=== PATIENT | female | born 1995 | race African-American/Black ===

== ENCOUNTER 2016-11-03 09:10 | Inpatient (IN) | payer MEDICAID ==
[2016-11-03] MEDS ORDERED: ONDANSETRON 4 MG TAB.RAPDIS PO ONE (11:40)
[2016-11-03] MEDS ORDERED: METOCLOPRAMIDE HCL 10 MG TABLET PO ONE (11:41)
[2016-11-03] MEDS ORDERED: DIPHENHYDRAMINE HCL 25 MG CAPSULE PO ONE (11:41)
[2016-11-03] MEDS ORDERED: NORMAL SALINE 1000 ML 1,000 ML IV PRN (11:42)
--- NOTE | 2016-11-03 11:47 | ER Document Report ---
ED GI/ - General Chief Complaint: Abdominal Pain Stated Complaint: ABDOMINAL PAIN Notes: Patient is approximately 8 weeks , G1, P0, A0, LMP August, who presents with nausea and vomiting on a daily basis for the past 2 weeks. She says she's vomited as many as 30 or 40 times a day some days. No diarrhea. No significant abdominal pains. He is making urine and her last urine output was this morning. Denies any UTI symptoms. Has not had any fever. Has not had any vaginal bleeding or spotting. PMH: Cholecystectomy. TRAVEL OUTSIDE OF THE [place] IN LAST 30 DAYS: No - Related Data Allergies/Adverse Reactions: No Known Allergies Allergy (Unverified 11/03/16 09:22) Past Medical History - Social History Smoking Status: Never Smoker Cigarette use (# per day): No Chew tobacco use (# tins/day): No Frequency of alcohol use: None Drug Abuse: None Family History: Reviewed & Not Pertinent Patient has suicidal ideation: No Patient has homicidal ideation: No Endocrine Medical History: Denies: Hx Diabetes Mellitus Type 1, Hx Diabetes Mellitus Type 2 Past Surgical History: Reports: Hx Cholecystectomy - Immunizations Hx Diphtheria, Pertussis, Tetanus Vaccination: - Unknown Review of Systems - Review of Systems Notes: REVIEW OF SYSTEMS: CONSTITUTIONAL : Denies fever. EENT: Denies eye, ear, nose or mouth or throat pain or other symptoms. CARDIOVASCULAR: Denies chest pain. RESPIRATORY: Denies cough, chest congestion, or shortness of breath. GASTROINTESTINAL: See history of present illness. GENITOURINARY: Denies difficulty or painful urinating, urinary frequency, blood in urine. MUSCULOSKELETAL: Denies back or neck pain. Denies joint pain or swelling. SKIN: Denies rash or skin lesions. NEUROLOGICAL: Denies LOC or altered mental status. Denies headache. Denies sensory loss or motor deficits. ALL OTHER SYSTEMS REVIEWED AND NEGATIVE. Physical Exam - Vital signs Vitals: Temp Pulse Resp BP Pulse Ox 97.4 F 112 H 20 121/70 94 11/03/16 09:13 11/03/16 09:13 11/03/16 09:13 11/03/16 09:13 11/03/16 09:13 Interpretation: Tachycardic - Minimal at 112. - Notes Notes: PHYSICAL EXAMINATION: GENERAL: Well-appearing, in no acute distress. Pulse is 112 but other vital signs are all normal. HEAD: Atraumatic, normocephalic. ENT: oropharynx clear without exudates. Moist mucous membranes. NECK: Normal range of motion, supple. LUNGS: Breath sounds clear and equal bilaterally. HEART: Regular rate and rhythm without murmurs. ABDOMEN: Soft, only very mild scattered random tenderness. No guarding or rebound. No masses felt. BACK: No tenderness throughout entire back. EXTREMITIES: Normal range of motion without pain. NEUROLOGICAL: Normal speech, normal gait. Normal sensory, motor, and reflex exams. Awake, alert, and oriented x3. SKIN: Warm, dry, no rashes. Course - Re-evaluation Re-evalutation: 11/03/16 17:22 Patient was a difficult stick and given IV) peripherally. Eventually, an IV line was obtained in the anterior right axilla. Patient was given 2 L of saline through that IV. She continued to be nauseated and actually vomited, even after some anti-emetics orally to begin with and Zofran IV. Because of the patient's persistent nausea and vomiting as well as her leukocytosis which is of some concern, patient was admitted for further hydration and evaluation by Dr. George. - Vital Signs Vital signs: Temp Pulse Resp BP Pulse Ox 97.4 F 112 H 20 121/70 94 11/03/16 09:13 11/03/16 09:13 11/03/16 09:13 11/03/16 09:13 11/03/16 09:13 - Laboratory Result Diagrams: 11/03/16 11:58 11/03/16 11:58 Laboratory results interpreted by me: 11/03/16 11/03/16 11/03/16 11:58 11:58 13:15 WBC 21.5 H Seg Neuts % (Manual) 79 H Band Neutrophils % 1 L Abs Neuts (Manual) 17.2 H Sodium 131.2 L Chloride 93 L Lipase 21.7 L Beta HCG, Quant 74847.00 H Urine Ketones 20 H - Diagnostic Test Radiology reviewed: Image reviewed, Reports reviewed - Ultrasound shows an 8 week, 1 day living fetus with active heartbeat. Discharge - Discharge Clinical Impression: Vomiting during Intractable vomiting Qualifiers: Vomiting type: unspecified Nausea presence: with nausea Qualified Code(s): R11.2 - Nausea with vomiting, unspecified Condition: Stable Disposition: ADMITTED OBSERVATION Admitting Provider: Hospitalist Unit Admitted: Post
[2016-11-03 12:09] LABS: HEMATOCRIT 42.6 % (36.0-47.0); HEMOGLOBIN 14.5 g/dL (12.0-15.5); HGB HCT DIFFERENCE 0.9; MEAN CORPUSCULAR HEMOGLOBIN 29.7 pg (27.0-33.4); MEAN CORPUSCULAR VOLUME 87 fl (80-97); RED BLOOD COUNT 4.87 10^6/uL (3.72-5.28); RED CELL DISTRIBUTION WIDTH 13.7 % (11.5-14.0); WHITE BLOOD COUNT 21.5 10^3/uL (4.0-10.5)
[2016-11-03 12:27] LABS: ALANINE AMINOTRANSFERASE 27 U/L (9-52); ALBUMIN 4.3 g/dL (3.5-5.0); ALKALINE PHOSPHATASE 69 U/L (38-126); ANION GAP 11 (5-19); ASPARTATE AMINO TRANSFERASE 19 U/L (14-36); BLOOD UREA NITROGEN 7 mg/dL (7-20); CALCIUM 10.2 mg/dL (8.4-10.2); CARBON DIOXIDE 27 mmol/L (22-30); CHLORIDE 93 mmol/L (98-107); CREATININE RESULT 0.61 mg/dL (0.52-1.25); GLUCOSE 79 mg/dL (75-110); LIPASE 21.7 U/L (23-300); SODIUM 131.2 mmol/L (137-145); TOTAL PROTEIN 7.4 g/dL (6.3-8.2)
[2016-11-03 12:35] LABS: BAND NEUTROPHILS % (MANUAL) 1 % (3-5); BASOPHILS % (MANUAL) 0 % (0-2); EOSINOPHILS % (MANUAL) 0 % (0-6); LYMPHOCYTES % (MANUAL) 16 % (13-45); POLYCHROMASIA SLIGHT; TOTAL CELLS COUNTED 100; TOXIC GRANULATION SLIGHT; TOXIC VACUOLATION PRESENT
[2016-11-03 13:34] LABS: APPEARANCE,URINE SLIGHTLY-CLOUDY; BILIRUBIN,URINE NEGATIVE (NEGATIVE); GLUCOSE, URINE NEGATIVE (NEGATIVE); KETONES,URINE 20 mg/dL (NEGATIVE); LEUKOCYTE ESTERASE,URINE NEGATIVE (NEGATIVE); NITRITE,URINE NEGATIVE (NEGATIVE); PROTEIN,URINE NEGATIVE (NEGATIVE); URINE SPECIFIC GRAVITY 1.016; UROBILINOGEN,URINE NEGATIVE mg/dL (<2.0)
[2016-11-03] MEDS ORDERED: ONDANSETRON HCL INJ/PF 4 MG/2 ML SDV IV ONE (16:11)
[2016-11-03] MEDS ORDERED: ONDANSETRON HCL INJ/PF 4 MG/2 ML SDV ONE (16:12)
[2016-11-03] MEDS ORDERED: NORMAL SALINE 1000 ML 1,000 ML with POTASSIUM CHLORIDE 20 MEQ, MAGNESIUM SULFATE 8 MEQ,... IV PRN ×5 (17:19)
[2016-11-03] MEDS ORDERED: PROMETHAZINE HCL 25 MG SUPP.RECT PR PRN (20:58)
--- NOTE | 2016-11-03 21:51 | PDOC H&P ---
History of Present Illness Admission Date/PCP: 11/03/16 17:59 Patient complains of: vomiting greater than 5 times per day History of Present Illness: KELLI DANIEL is a 21 year old female with unknown LMP who reports several day to 1week history of n/v. She reports that she has emesis both day and night. Greater than 5 times per day (but less than 10 times) and greater than 5 times at night (but less than 10) and is having difficulty sleeping. She reports that she has been unable to tolerate po food or fluids. She presented to the ER and was given IVF but had persistent emesis despite meds in the ER. Past Medical History Gynecological Infection: No Obstetrical History: none Medical History: None Cardiac Medical History: Reports: None Pulmonary Medical History: Reports: None EENT Medical History: Reports: None Neurological Medical History: Reports: None Endocrine Medical History: Reports: None Denies: Diabetes Mellitus Type 1, Diabetes Mellitus Type 2 Renal/ Medical History: Reports: None Malignancy Medical History: Reports: None GI Medical History: Reports: None Musculoskeltal Medical History: Reports: None Skin Medical History: Reports: None Psychiatric Medical History: Reports: None Traumatic Medical History: Reports: None Infectious Medical History: Reports: None Past Surgical History Past Surgical History: Reports: Cholecystectomy Social History Smoking Status: Never Smoker Frequency of Alcohol Use: None Hx Recreational Drug Use: No Drugs: None Hx Prescription Drug Abuse: No - Advance Directive Resuscitation Status: Full Code Family History Family History: Reviewed & Not Pertinent Parental Family History Reviewed: No Children Family History Reviewed: NA Sibling(s) Family History Reviewed.: NA Medication/Allergy Home Medications: No Home Medications 11/03/16 Allergies/Adverse Reactions: No Known Allergies Allergy (Unverified 11/03/16 09:22) Review of Systems Constitutional: PRESENT: fatigue, weakness Cardiovascular: ABSENT: chest pain, dyspnea on exertion, edema, orthropnea, palpitations Respiratory: ABSENT: cough, hemoptysis Gastrointestinal: PRESENT: abdominal pain, nausea, vomiting. ABSENT: bloating Genitourinary: ABSENT: dysuria, hematuria Musculoskeletal: ABSENT: joint swelling Integumentary: ABSENT: rash, wounds Neurological: ABSENT: abnormal gait, abnormal speech, confusion, dizziness, focal weakness, syncope Psychiatric: ABSENT: anxiety, depression, homidical ideation, suicidal ideation Endocrine: ABSENT: cold intolerance, heat intolerance, polydipsia, polyuria Hematologic/Lymphatic: ABSENT: easy bleeding, easy bruising Physical Exam - Physical Exam Vital Signs: Temp Pulse Resp BP Pulse Ox 98.1 F 76 18 114/73 100 11/03/16 19:04 11/03/16 19:04 11/03/16 19:04 11/03/16 19:04 11/03/16 19:04 General appearance: PRESENT: no acute distress, cooperative Head exam: PRESENT: atraumatic, normocephalic Respiratory exam: PRESENT: clear to auscultation isabella, symmetrical, unlabored Cardiovascular exam: PRESENT: RRR, +S1, +S2 Pulses: PRESENT: +2 pedal pulses bilateral GI/Abdominal exam: PRESENT: normal bowel sounds, soft. ABSENT: guarding, mass, rebound, rigid, tenderness Rectal exam: PRESENT: deferred Extremities exam: PRESENT: full ROM. ABSENT: calf tenderness, clubbing, pedal edema Musculoskeletal exam: PRESENT: ambulatory Neurological exam: PRESENT: alert, awake - sleeping but arousable, oriented to person, oriented to place, oriented to time Psychiatric exam: PRESENT: appropriate affect, normal mood. ABSENT: homicidal ideation, suicidal ideation Skin exam: PRESENT: dry, intact, warm. ABSENT: cyanosis, rash Result Impressions: Obstetrics Ultrasound 11/03/16 14:23 IMPRESSION: LIVING INTRAUTERINE . EGA 8w 1d Trimester of : First - 0 to 13 weeks. RANDA 06/14/2017 Assessment & Plan - Diagnosis (1) Hyperemesis Qualifiers: Vomiting type: unspecified Nausea presence: with nausea Qualified Code(s): R11.2 - Nausea with vomiting, unspecified Is this a current diagnosis for this admission?: YesPlan: Admit for NPO and will give IV/OH meds for nausea. Strict I/O and daily weights. Banana Bag daily. Once symptoms improved then will advance diet as tolerated with plan to discharge pt when able once stable on po meds. - Time Time Spent: 30 to 50 Minutes Critical Time spent with patient: Less than 15 minutes Medications reviewed and adjusted accordingly: Yes Anticipated discharge: Home Within: within 72 hours - Inpatient Certification Medical Necessity: Failure to Improve With Outpatient Therapy, Need Close Monitoring Due to Risk of Patient Decompensation, Need For IV Fluids
[2016-11-03] MEDS ORDERED: RINGERS SOLUTION,LACTATED 1,000 ML IV PRN (23:35)
[2016-11-04] MEDS: METOCLOPRAMIDE HCL INJ/PF 10 MG/2 ML SDV IV SCH ×2 (00:36→06:03)
[2016-11-04 07:22] LABS: ALANINE AMINOTRANSFERASE 19 U/L (9-52); ALBUMIN 3.4 g/dL (3.5-5.0); ALKALINE PHOSPHATASE 55 U/L (38-126); ANION GAP 9 (5-19); ASPARTATE AMINO TRANSFERASE 12 U/L (14-36); BLOOD UREA NITROGEN 4 mg/dL (7-20); CALCIUM 9.4 mg/dL (8.4-10.2); CARBON DIOXIDE 26 mmol/L (22-30); CHLORIDE 100 mmol/L (98-107); CREATININE RESULT 0.61 mg/dL (0.52-1.25); GLUCOSE 66 mg/dL (75-110); POTASSIUM 3.8 mmol/L (3.6-5.0); SODIUM 135.2 mmol/L (137-145)
--- NOTE | 2016-11-04 09:32 | PDOC PROGRESS REPORT ---
Subjective Progress Note for:: 11/04/16 Subjective:: doing better. is hungry and desires to eat. giving slow po advances. no further tenderness in belly Physical Exam - Physical Exam Vital Signs: Temp Pulse Resp BP Pulse Ox 97.6 F 79 16 127/84 H 100 11/04/16 08:12 11/04/16 08:12 11/04/16 08:12 11/04/16 08:12 11/04/16 08:12 Intake & Output 11/03/16 11/04/16 11/05/16 06:59 06:59 06:59 Intake Total 120 Balance 120 General appearance: PRESENT: no acute distress Head exam: PRESENT: atraumatic GI/Abdominal exam: PRESENT: soft - no tenderness to palpation Neurological exam: PRESENT: alert Result Laboratory Results: 11/04/16 06:43 11/04/16 11/04/16 06:43 06:43 Sodium 135.2 L Potassium 3.8 Chloride 100 Carbon Dioxide 26 Anion Gap 9 BUN 4 L Creatinine 0.61 Est GFR ( Amer) > 60 Est GFR (Non-Af Amer) > 60 Glucose 66 L Calcium 9.4 Total Bilirubin 1.0 AST 12 L ALT 19 Alkaline Phosphatase 55 Total Protein 6.0 L Albumin 3.4 L TSH 0.40 L Impressions: Obstetrics Ultrasound 11/03/16 14:23 IMPRESSION: LIVING INTRAUTERINE . EGA 8w 1d Trimester of : First - 0 to 13 weeks. Assessment & Plan - Diagnosis (1) Hyperemesis Qualifiers: Vomiting type: unspecified Nausea presence: with nausea Qualified Code(s): R11.2 - Nausea with vomiting, unspecified Is this a current diagnosis for this admission?: Yes - Time Time Spent with patient: Less than 15 minutes Anticipated discharge: Home Within: within 24 hours - if tolerates PO advances will d/c with phenergan suppositories - Inpatient Certification Based on my medical assessment, after consideration of the patient's comorbidities, presenting symptoms, or acuity I expect that the services needed warrant INPATIENT care.: Yes Medical Necessity: Need For IV Fluids
[2016-11-04] MEDS ORDERED: METOCLOPRAMIDE HCL 10 MG TABLET PO ONE (13:00)
--- NOTE | 2016-11-04 14:53 | Physician Advisory Note ---
Physician Advisor ProgressNote .: Pursuant to the plan for [facility], I have reviewed the medical record for this patient. Physician Advisor Statement: Attending: in hyperemesis cases, please document explicitly what clinical concerns/findings worry you most, make you believe pt needs Inpatient management from the get-go rather than initial Outpt Obs with transition to Inpt when pt doesn't improve adequately by next day. As drs, we now need to "paint the picture" so non-physician auditors can see why our decisions are appropriate, and can't say the pt "wasn't all that sick" & could have been managed outpt. Please "echo" in your documentation any supporting info below with which you agree, as well, so there is no question as to what you have been thinking. Status: 21yo at 8wks gest presented late 11/03 AM with 2wks of N/V, inability to keep food/fluids down, vomiting 10-20x/24hrs, with abd pain, tachycardia at 112 . WBC 21.5, Na 131.2, lipase 21.7, (+)ketonuria, quant beta-HCG 76K, OB U/S reassuring. Such difficulty with getting venous access that eventually IV placed in axilla! Still with N/V after 2L NS & antiemetics in ED both po & IV. She therefore failed aggressive outpt therapy, & in fact was even more tachycardic at 17:44 (123) than she was initially in the AM. She was appropriately brought into the hospital for ongoing tx & monitoring. Attending ordered NPO, I/Os, daily wts, IVF@125, IV Reglan q6h scheduled, prn MA Phenergan, even daily labs through 11/07 (which gives an idea of how severe this attending felt this case was - not just checking labs in AM x 1 with expectation she'd be all better then). Nursing note at 22:00 reported continued N/V. Attending on 11/04 AM indicated abd tenderness was gone, & pt was better, but still needing IVF. Nursing note about 1 hr later reported (+)abd pain. After 1 night of tx, pt no longer tachycardic, but still hyponatremic at 135.2, & has developed hypoglycemia. CBC not repeated. Wt is actually lower, at 83.195kg rather than 83.915kg on arrival, which suggests she is even more fluid depleted. Reglan is being changed to po q6h. Attending allowing po full liquids starting with lunch 11/04 to see how she tolerates this. This is a pt who was severely ill with hyperemesis, not just having a mild case able to be managed by 1-2L of IVF, a dose of IV antiemetic, & sent home with bland diet. There was no question in the attending's mind as to whether or not she needed to stay in the hospital for tx & monitoring until stabilized - no "let's observe and decide whether or not she needs to be admitted". She needs to be able to keep her electrolytes and blood sugars in appropriate range without ongoing IV therapy. Once her labs stabilize and she is able to manage some po's, she still needs to be able to maintain toleration of po's & keep adequate fluid volume without continued IVF before she can be considered safe for d/c to home. Tx in inpatient hospital setting medically reasonable & necessary to protect pt' s health, safety, & medical condition. Appropriate for Inpt status. Thanks for your help with documentation accuracy/specificity improvement! Amada Harris MD [facility] Physician Advisor, Fellow of Hospital Medicine Addendum: Update from nurse: pt ate some grapes that family brought in, & became very nauseated again, required extra NOW dose Reglan ordered, although has tolerated a little ice cream. Not doing well enough to have a chance of going home before at least tomorrow.
[2016-11-04] MEDS: METOCLOPRAMIDE HCL 10 MG TABLET PO SCH (17:27)
[2016-11-05] MEDS: METOCLOPRAMIDE HCL 10 MG TABLET PO SCH ×3 (02:16→12:17)
[2016-11-05 08:15] LABS: ALANINE AMINOTRANSFERASE 22 U/L (9-52); ALBUMIN 3.3 g/dL (3.5-5.0); ALKALINE PHOSPHATASE 59 U/L (38-126); ANION GAP 9 (5-19); ASPARTATE AMINO TRANSFERASE 13 U/L (14-36); BILIRUBIN,TOTAL 0.8 mg/dL (0.2-1.3); BLOOD UREA NITROGEN 4 mg/dL (7-20); CALCIUM 9.6 mg/dL (8.4-10.2); CARBON DIOXIDE 27 mmol/L (22-30); CHLORIDE 98 mmol/L (98-107); CREATININE RESULT 0.59 mg/dL (0.52-1.25); GLUCOSE 70 mg/dL (75-110); POTASSIUM 3.9 mmol/L (3.6-5.0); SODIUM 133.8 mmol/L (137-145); TOTAL PROTEIN 6.3 g/dL (6.3-8.2)
[2016-11-05 13:30] VITALS: BP 115/70
--- NOTE | 2016-11-05 18:34 | PDOC DISCHARGE SUMMARY ---
General - Admit/Disc Date/PCP Admission Date/Primary Care Provider: 11/03/16 21:07 Discharge Date: 11/05/16 - Discharge Diagnosis (1) Hyperemesis Is this a current diagnosis for this admission?: YesSummary: reviewed warning s/s and reasons to return to ER. Encouraged to follow BRAT diet for 24hr then slowly increase diet and make better dietary choices. Rx given for Phenergan suppositories (2) Vomiting during Is this a current diagnosis for this admission?: YesSummary: see above - Additional Information Resuscitation Status: Full Code Discharge Diet: As Tolerated - encouraged BRAT diet x 24hrs then slowly increase to regular. Start food diary, increase protein in diet Discharge Activity: Activity As Tolerated, Energy Conservation Home Medications: Promethazine HCl [Phenergan 25 mg Supp.rect] 25 mg WA Q8HP PRN #60 supp.rect History of Present Illness History of Present Illness: KLELI DANIEL is a 21 year old female Physical Exam - Physical Exam Vital Signs: Temp Pulse Resp BP Pulse Ox 97.6 F 99 16 115/70 100 11/05/16 13:27 11/05/16 13:27 11/05/16 13:27 11/05/16 13:27 11/05/16 13:27 Intake & Output 11/04/16 11/05/16 11/06/16 06:59 06:59 06:59 Intake Total 120 1600 Balance 120 1600 Weight 83.195 kg 82 kg General appearance: PRESENT: no acute distress, other - flat affect Respiratory exam: PRESENT: clear to auscultation isabella Cardiovascular exam: PRESENT: RRR GI/Abdominal exam: PRESENT: normal bowel sounds - no CVA tenderness, pain on left lower quadrant able to replicate with deep palpation Neurological exam: PRESENT: alert, oriented to person, oriented to place, oriented to time Psychiatric exam: PRESENT: flat affect Result Laboratory Results: 11/05/16 07:08 11/05/16 07:08 Sodium 133.8 L Potassium 3.9 Chloride 98 Carbon Dioxide 27 Anion Gap 9 BUN 4 L Creatinine 0.59 Est GFR ( Amer) > 60 Est GFR (Non-Af Amer) > 60 Glucose 70 L Calcium 9.6 Total Bilirubin 0.8 AST 13 L ALT 22 Alkaline Phosphatase 59 Total Protein 6.3 Albumin 3.3 L Impressions: Obstetrics Ultrasound 11/03/16 14:23 IMPRESSION: LIVING INTRAUTERINE . EGA 8w 1d Trimester of : First - 0 to 13 weeks. Abdomen Ultrasound 11/05/16 00:00 IMPRESSION: POST CHOLECYSTECTOMY. OTHERWISE, NORMAL RIGHT UPPER QUADRANT ULTRASOUND. Plan Discharge Plan: reviewed progress, hx and results with Dr. Villagomez who agrees with Discharge today. Pt. was tolerating food overnight and had hashbrowns and soda this am which she vomited. Had long discussion regarding healthy diet and starting dietary journal. Pt. denies any problems after cholecystectomy. Encouraged to schedule follow up at [facility] on Thursday also repeat cervical lenght at next u/s. Reviewed warning s/s and reasons to return to ER earlier prn. Pt. asked questions and verbalized understanding.
== END 2016-11-05 13:49 | disposition home or self-care (01) | DRG 781 ==
LOC: ER 09:10 → EH 17:59 → 2N 18:57 → OBSVTOIN 21:07
PROVIDERS: ADMIT Student in an Organized Health Care Education/Training Program; ATTEND Student in an Organized Health Care Education/Training Program
DX: O21.1 Hyperemesis gravidarum with metabolic disturbance (principal); Z3A.08 8 weeks gestation of pregnancy; Z90.49 Acquired absence of other specified parts of digestive tract
CPT/HCPCS: 36415; 76705; 76817; 80053; 81001; 83690; 84443; 84702; 85025; 87086; 93976; 96361; 96374; 96375; 96376; 99285; J2405; J2765; J3490; J7030; S0119

== ENCOUNTER 2017-04-27 07:16 | Outpatient (CLI) | payer MEDICAID ==
[2017-04-27 08:11] LABS: ABSOLUTE BASOPHILS # (AUTO) 0.1 10^3/uL (0.0-0.2); ABSOLUTE LYMPHOCYTES (AUTO) 1.5 10^3/uL (0.5-4.7); ABSOLUTE MONOCYTES (AUTO) 0.8 10^3/uL (0.1-1.4); ABSOLUTE NEUT (AUTO) 12.9 10^3/uL (1.7-8.2); BASOPHILS % (AUTO) 0.7 % (0-2); EOSINOPHILS % (AUTO) 0.2 % (0-6); HEMATOCRIT 37.9 % (36.0-47.0); HEMOGLOBIN 12.5 g/dL (12.0-15.5); HGB HCT DIFFERENCE -0.4; MEAN CORPUSCULAR HEMOGLOBIN 28.8 pg (27.0-33.4); MEAN CORPUSCULAR VOLUME 87 fl (80-97); RED BLOOD COUNT 4.35 10^6/uL (3.72-5.28); RED CELL DISTRIBUTION WIDTH 12.9 % (11.5-14.0); SEGMENTED NEUTROPHILS % (AUTO) 84.1 % (42-78); WHITE BLOOD COUNT 15.3 10^3/uL (4.0-10.5)
[2017-04-27 08:14] LABS: APPEARANCE,URINE CLEAR; BILIRUBIN,URINE NEGATIVE (NEGATIVE); GLUCOSE, URINE NEGATIVE (NEGATIVE); KETONES,URINE 20 mg/dL (NEGATIVE); LEUKOCYTE ESTERASE,URINE NEGATIVE (NEGATIVE); NITRITE,URINE NEGATIVE (NEGATIVE); PROTEIN,URINE 30 mg/dL (NEGATIVE); URINE SPECIFIC GRAVITY 1.018; UROBILINOGEN,URINE NEGATIVE mg/dL (<2.0)
[2017-04-27 08:28] LABS: ALANINE AMINOTRANSFERASE 19 U/L (9-52); ALBUMIN 3.7 g/dL (3.5-5.0); ALKALINE PHOSPHATASE 117 U/L (38-126); AMYLASE 60 U/L (30-110); ANION GAP 12 (5-19); ASPARTATE AMINO TRANSFERASE 13 U/L (14-36); BILIRUBIN,DIRECT 0.3 mg/dL (0.0-0.4); BILIRUBIN,TOTAL 0.7 mg/dL (0.2-1.3); BLOOD UREA NITROGEN 6 mg/dL (7-20); CALCIUM 9.8 mg/dL (8.4-10.2); CARBON DIOXIDE 22 mmol/L (22-30); CHLORIDE 101 mmol/L (98-107); CREATININE RESULT 0.55 mg/dL (0.52-1.25); GLUCOSE 80 mg/dL (75-110); LIPASE 36.1 U/L (23-300); POTASSIUM 4.2 mmol/L (3.6-5.0); SODIUM 134.7 mmol/L (137-145); TOTAL PROTEIN 7.1 g/dL (6.3-8.2)
[2017-04-27 08:37] LABS: URINE BARBITURATES SCREEN NEGATIVE; URINE METHADONE SCREEN NEGATIVE; URINE OPIATES LOW NEGATIVE; URINE PHENCYCLIDINE SCREEN NEGATIVE
--- NOTE | 2017-04-27 08:37 | RADIOLOGY REPORT (SQ) ---
EXAM DESCRIPTION: U/S ABDOMEN LIMITED W/O DOP COMPLETED DATE/TIME: 04/27/2017 8:24 am REASON FOR STUDY: R lower quadrant R/O appendicitis COMPARISON: None. TECHNIQUE: Static and real time aleman scale imaging performed of the right lower quadrant with additi onal compression maneuvers. LIMITATIONS: Limited visualization due to gravid uterus. FINDINGS: APPENDIX: Not visualized. BOWEL: Air-filled bowel. COMPRESSION MANEUVERS: No rebound pain with compression. OTHER: Gravid uterus. IMPRESSION: Appendix not identified. No evidence of appendicitis. TECHNICAL DOCUMENTATION: JOB ID: [id number] [employer]- All Rights Reserved
[2017-04-27] MEDS ORDERED: ONDANSETRON 4 MG TAB.RAPDIS PO ONE (09:32)
[2017-04-27] MEDS ORDERED: CITRIC ACID/SODIUM CITRATE ORAL SOLN 15 ML UDCUP PO ONE (09:33)
[2017-04-27] MEDS ORDERED: TERBUTALINE SULFATE INJ/PF 1 MG/1 ML SDV SUBCUT ONE (09:34)
[2017-04-27] MEDS ORDERED: CITRIC ACID/SODIUM CITRATE ORAL SOLN 15 ML UDCUP ONE (09:40)
[2017-04-27] MEDS ORDERED: ONDANSETRON 4 MG TAB.RAPDIS ONE (09:40)
[2017-04-27] MEDS ORDERED: TERBUTALINE SULFATE INJ/PF 1 MG/1 ML SDV ONE (10:11)
[2017-04-27] MEDS ORDERED: PROMETHAZINE HCL 25 MG SUPP.RECT PR ONE ×2 (10:39→11:33)
--- NOTE | 2017-04-27 10:51 | RADIOLOGY REPORT (SQ) ---
EXAM DESCRIPTION: U/S OB LIMITED COMPLETED DATE/TIME: 04/27/2017 10:40 am REASON FOR STUDY: cervical length, r/o PTL, KD, presentation, place COMPARISON: 11/03/2016 TECHNIQUE: Limited transvaginal and transabdominal grayscale ultrasound for evaluation of specific r equested obstetrical parameters. LIMITATIONS: None. FINDINGS: CERVICAL LENGTH: 2.7 cm Closed. KD: 10.1 cm. FHR: 162 beats per minute. PRESENTATION: Cephalic. OTHER: Posterior placenta. IMPRESSION: LIMITED OBSTETRICAL ULTRASOUND WITH MEASURED PARAMETERS DELINEATED ABOVE. Trimester of : Third trimester - 28 weeks to delivery. TECHNICAL DOCUMENTATION: JOB ID: [id number] [employer]- All Rights Reserved
[2017-04-27] MEDS ORDERED: BUTALB/ACETAMINOPHEN/CAFFEINE 1 TAB EACH PO ONE (11:33)
[2017-04-27] MEDS ORDERED: HYDROXYZINE PAMOATE 25 MG CAPSULE PO ONE ×2 (11:34→14:30)
[2017-04-27] MEDS ORDERED: HYDROXYZINE PAMOATE 50 MG CAPSULE ONE (11:42)
[2017-04-27] MEDS ORDERED: BUTALB/ACETAMINOPHEN/CAFFEINE 1 TAB EACH ONE (11:43)
[2017-04-27 11:49] LABS: URINE CREATININE 296.2 mg/dL (16-327)
[2017-04-27 11:53] LABS: URINE PROTEIN < 5.0 mg/dL (<12)
[2017-04-27 12:35] LABS: URIC ACID 3.4 mg/dL (2.5-6.2)
[2017-04-27 12:50] LABS: CHLAM PCR NOT DETECTED (NOT DETECT)
--- NOTE | 2017-04-27 15:04 | CONSULTATION REPORT E ---
Consultation Report NAME: KELLI DANIEL : 1995 AGE: 21Y DATE: 04/27/2017 TO: MAYELIN BUENO M.D. FROM: KAMINI ALICEA M.D. Requesting Physician REASON FOR CONSULTATION: Abdominal pain. REPORT OF CONSULTATION: The patient is a 21-year-old -[place] female, approximately 30-week intrauterine , with a long history of hyperemesis, nausea, and abdominal pain. The patient has been seen in this emergency department at [facility] as well as [facility] on multiple occasions. She has not had a diagnosis of a surgical problem. She is 2 years status post laparoscopic cholecystectomy at [facility] for similar symptoms. She is now admitted to the [facility] for observation. She underwent ultrasonographic imaging of the abdomen which was essentially unremarkable. No appendix was identified. Since observation began the patient's symptoms have plateaued slightly. PAST MEDICAL/SURGICAL HISTORY: as documented in the history and physical document. ALLERGIES: None known. MEDICATIONS: vitamins. REVIEW OF SYSTEMS: Not obtainable as the patient is nonparticipatory. PHYSICAL EXAMINATION: The patient is examined in the Labor and Delivery deck. VITAL SIGNS: Stable. Her heart rate is in the mid 90s. PSYCHIATRIC: Patient required much coercing to get her to switch from the prone to the supine position. Once this was achieved she was reasonably cooperative. GENERAL: No acute distress. There is a heart rate monitoring apparatus in position. She is awake, alert, and oriented x4. HEENT: The eyes are without icterus. LUNGS: Diminished at the bases bilaterally. HEART: Without murmur or gallop. ABDOMEN: Again, monitoring device is in place. There are no peritoneal signs and no rigidity. The abdomen is very soft. DIAGNOSTICS: Laboratory profile shows a white blood cell count of 15,000 and hemoglobin of 12.5. Electrolytes are essentially within normal limits. No elevation of liver function studies. Toxicology confirmed positive for marijuana. Urinalysis shows 30+ protein and 20+ ketones. IMPRESSION: Abdominal pain during third-trimester intrauterine in a 21-year-old -[place] female with a history of chronic abdominal pain, nausea and vomiting. Based on physical exam and serologic studies, there is no apparent intra-abdominal surgical problem identified at this time. RECOMMENDATIONS: The above findings were discussed with medical staff and Dr. Ailcea. Please reconsult Surgery if clinically indicated. DICTATING PHYSICIAN: MAYELIN BUENO M.D. [id number] PHY#: [id number] ID: [id number] JOB#: [id number] ACCT: [id number] cc:MAYELIN BUENO M.D. > [facility]
--- NOTE | 2017-04-28 10:42 | PSYCHOLOGICAL NOTE ---
Psych Note - Psych Note Psych Note: Patient is a 21 year old female who presented to [facility] with c/o severe pain, n/v. Patient was referred for consultation due to concerns of her manic type presentation and history of Bipolar Disorder. Patient today is accompanied by her mother, who is bedside. Patient is sleeping, but easily aroused to her name. Patient states she is not suicidal/homicidal. Patient states she goes to [facility] in [place] for opt, and is prescribed Latuda. Patient does note she stopped taking her medication a few weeks ago, possibly 5. Patient states she did this without medical oversight. Patient states she continues to engage in group counseling at [facility] monthly. Patient reports she was anxious today and in pain. Otherwise, she states she states she resides with a friend in [place] and reports no concerns at this time, other than her pain. Patient's mother is bedside and states she has been present with the patient throughout today and states she thinks she was upset because she was in so much pain. Mother reports that the patient is living with a friend, but once she secures housing, the patient and baby will reside with her. Mother states the patient likely discontinued her medications, "like she normally does." Mother denies any prior history of suicide attempts or inpatient hospitalizations. Mother states she will support her in following up with her provider, for outpatient therapy. Patient was sleeping, but arousable to calling her name. Patient's mood was described as labile; however, at the time of evaluation (and post medication) mood with euthymic with normal affect. Patient denies SI/HI. Patient denies A/ V H; delusions not noted. Thought processes were guarded, but organized. Conversational speech was low for prosody. Intellectual abilities were estimated within average range. Attention and focus were poor. Insight, judgment , and impulse control throughout the day were noted as poor to fair. Unspecified Bipolar Disorder, per history Patient is psychiatrically cleared for discharge. Patient is recommended to follow up with her provider, [facility] in [place] top engage in counseling. Discussed with patient and mother that continued counseling will assist in coping skills to help manage her mood lability throughout the duration of her . I consulted with Dr. Padilla in regards to the care and management of this patient. made aware of disposition recommendations and states she will provide patient small doses of Vistaril to help her remain calm, sleep, and manage her symptoms.
== END 2017-04-27 15:40 | disposition home or self-care (01) ==
LOC: LC 07:16
PROVIDERS: ATTEND Student in an Organized Health Care Education/Training Program
DX: O99.89 Other specified diseases and conditions complicating pregnancy, childbirth and the puerperium (principal); R10.9 Unspecified abdominal pain; Z3A.30 30 weeks gestation of pregnancy
CPT/HCPCS: 59025; 36415; 82150; 83615; 83690; 84156; 84550; 82570; 85025; 80053; 81001; 80307; 87491; 87591; 76705; 76815; J3490 ×5; J3105; S0119

== ENCOUNTER 2017-05-16 09:17 | Observation (INO) | payer MEDICAID ==
[2017-05-16 10:15] LABS: APPEARANCE,URINE CLOUDY; BILIRUBIN,URINE NEGATIVE (NEGATIVE); GLUCOSE, URINE NEGATIVE (NEGATIVE); KETONES,URINE NEGATIVE (NEGATIVE); LEUKOCYTE ESTERASE,URINE LARGE (NEGATIVE); NITRITE,URINE NEGATIVE (NEGATIVE); PROTEIN,URINE NEGATIVE (NEGATIVE); URINE SPECIFIC GRAVITY 1.019; UROBILINOGEN,URINE NEGATIVE mg/dL (<2.0)
[2017-05-16] MEDS ORDERED: NALBUPHINE HCL INJ 10 MG/1 ML AMPULE ONE (10:20)
[2017-05-16] MEDS ORDERED: METOCLOPRAMIDE HCL INJ/PF 10 MG/2 ML SDV ONE (10:20)
[2017-05-16 10:40] LABS: URINE BARBITURATES SCREEN NEGATIVE; URINE METHADONE SCREEN NEGATIVE; URINE OPIATES LOW NEGATIVE; URINE PHENCYCLIDINE SCREEN NEGATIVE
[2017-05-16 10:50] LABS: ABSOLUTE BASOPHILS # (AUTO) 0.1 10^3/uL (0.0-0.2); ABSOLUTE EOSINOPHILS # (AUTO) 0.1 10^3/uL (0.0-0.6); ABSOLUTE LYMPHOCYTES (AUTO) 1.4 10^3/uL (0.5-4.7); ABSOLUTE MONOCYTES (AUTO) 0.7 10^3/uL (0.1-1.4); ABSOLUTE NEUT (AUTO) 11.6 10^3/uL (1.7-8.2); BASOPHILS % (AUTO) 0.5 % (0-2); EOSINOPHILS % (AUTO) 0.4 % (0-6); HEMATOCRIT 38.2 % (36.0-47.0); HEMOGLOBIN 12.8 g/dL (12.0-15.5); HGB HCT DIFFERENCE 0.2; LYMPHOCYTES % (AUTO) 10.2 % (13-45); MEAN CORPUSCULAR HEMOGLOBIN 29.1 pg (27.0-33.4); MEAN CORPUSCULAR HGB CONC 33.5 g/dL (32.0-36.0); MEAN CORPUSCULAR VOLUME 87 fl (80-97); MONOCYTES % (AUTO) 5.3 % (3-13); RED BLOOD COUNT 4.41 10^6/uL (3.72-5.28); RED CELL DISTRIBUTION WIDTH 13.4 % (11.5-14.0); SEGMENTED NEUTROPHILS % (AUTO) 83.6 % (42-78); WHITE BLOOD COUNT 13.9 10^3/uL (4.0-10.5)
[2017-05-16 11:08] LABS: ALANINE AMINOTRANSFERASE 20 U/L (9-52); ALBUMIN 3.6 g/dL (3.5-5.0); ALKALINE PHOSPHATASE 138 U/L (38-126); ANION GAP 9 (5-19); ASPARTATE AMINO TRANSFERASE 14 U/L (14-36); BILIRUBIN,DIRECT 0.3 mg/dL (0.0-0.4); BILIRUBIN,TOTAL 0.6 mg/dL (0.2-1.3); BLOOD UREA NITROGEN 9 mg/dL (7-20); CALCIUM 9.7 mg/dL (8.4-10.2); CARBON DIOXIDE 21 mmol/L (22-30); CHLORIDE 106 mmol/L (98-107); CREATININE RESULT 0.57 mg/dL (0.52-1.25); GLUCOSE 80 mg/dL (75-110); LDH 437 U/L (313-618); SODIUM 136.3 mmol/L (137-145); TOTAL PROTEIN 6.6 g/dL (6.3-8.2); URIC ACID 4.2 mg/dL (2.5-6.2)
[2017-05-16 11:08] LABS: URINE CREATININE 147.8 mg/dL (16-327); URINE PROTEIN 8.1 mg/dL (<12)
--- NOTE | 2017-05-16 12:47 | RADIOLOGY REPORT (SQ) ---
EXAM DESCRIPTION: U/S OB LIMITED COMPLETED DATE/TIME: 05/16/2017 12:31 pm REASON FOR STUDY: CL, wellbeing, placenta loc COMPARISON: 04/27/2017. TECHNIQUE: Limited transabdominal grayscale ultrasound for evaluation of specific requested obstetri stas parameters. LIMITATIONS: None. FINDINGS: CERVICAL LENGTH: 2.6 cm. Closed. PLACENTA: Posterior KD: 14.2 cm. FHR: 131 beats per minute. PRESENTATION: Cephalic. OTHER: No other significant findings. IMPRESSION: LIMITED OBSTETRICAL ULTRASOUND WITH MEASURED PARAMETERS DELINEATED ABOVE. Trimester of : Third trimester - 28 weeks to delivery. TECHNICAL DOCUMENTATION: JOB ID: [id number] [employer]- All Rights Reserved
[2017-05-16 13:51] LABS: CHLAM PCR NOT DETECTED (NOT DETECT)
[2017-05-16] MEDS ORDERED: HYDROXYZINE PAMOATE 50 MG CAPSULE ONE (14:05)
[2017-05-16] MEDS ORDERED: RISPERIDONE 0.25 MG TABLET PO ONE (16:00)
[2017-05-16] MEDS ORDERED: ZOLPIDEM TARTRATE 5 MG TABLET ONE (16:39)
[2017-05-16] MEDS ORDERED: ZOLPIDEM TARTRATE 5 MG TABLET PO ONE (16:45)
[2017-05-16] MEDS ORDERED: DIPHENHYDRAMINE HCL 50 MG/ML VIAL IV PRN (17:53)
[2017-05-16] MEDS ORDERED: DIPHENHYDRAMINE HCL 50 MG/ML VIAL ONE (18:05)
[2017-05-16] MEDS ORDERED: CEFTRIAXONE 1 GM/D5W RTU 1 GM/50 ML RTUPB IV ONE (19:00)
[2017-05-16] MEDS ORDERED: CYCLOBENZAPRINE HCL 10 MG TABLET PO PRN (19:05)
--- NOTE | 2017-05-16 19:05 | L&D Progress Notes ---
PROGRESS NOTES Datetime Report Generated by ROMAN: 05/16/2017 19:04 PROGRESS NOTE Impression Other: Cakked Dr. Joy for 2nd opinion Plan: Continue Present Management Informed Consent Obtained: Risks, Benefits and Alternatives Discussed Informed Consent Obtained: Risks, Benefits and Alternatives Discussed Vital Signs : Reviewed Comment: Pt c/o pain again. Pt was given 5mg Nubain and 10mg reglan earlier today with relief of pain. Psych has seen patient and recommended Risperdone 0.25mg - however pt refused. Uterus is not ttp. Seems that most of pain is musculoskeletal. Dr. joy asked to come see patient for second opinion since pt still c/o pain - who agreed that there is not medical issue as cause for pain at this time. pain seems more of and issue for patient when there are visitors in room but is more restful when people are not in room. REviewed with pt that no need for pain medication. Will try benadryl and flexeril. Pt also given Ambien to help with rest - this did not seem to help patient with rest at this time. Prior to Dr. Joy arrival - I gave pt ROcephin as well since the only other thing that could be an issue anc cause pain at this time would be chorio - however, pt is afebrile, no or maternal tachy. WBC count is 13 but may be normal in - urine culture sent as well. Still no e/o labor - no cervical change since arrival this am. Pt agrees at this time to treatment of musculoskeletal discomfort. VAGINAL EXAM Dilatation: 1 Dilatation: 1 Effacement: 0 Effacement: 25 Station: -3 Station: -3 Contractions: none Contractions: rare to q 8, minimal to palpation MEMBRANES Membranes: Intact Membranes: Intact SIGNATURE SIGNATURE: [id number] Signature: with User ID: [email or web address]
[2017-05-16] MEDS ORDERED: CYCLOBENZAPRINE HCL 10 MG TABLET ONE (19:24)
--- NOTE | 2017-05-16 20:01 | L&D Progress Notes ---
PROGRESS NOTES Datetime Report Generated by CPN: 05/16/2017 20:01 PROGRESS NOTE Impression Other: needs discharge from here to ER Comment: No obstetrical cause for her pain. Concern for continued manic episode as none of the meds have helped. SHe has also refused Risperdone. She is now throwing water bottle on the floor and appears to be increasingly manic and would be better served with evaluation in the ER. Pt contiues to say she is in pain but there is no etiology for her pain present from obstetrical standpoint. Exam is benign. Spoke with Dr Traore in the ER who has agreed to evaluate and treat patient. Will discharge pt to the ER for evaluation. FETUS C SIGNATURE: [id number] Signature: with User ID: [email or web address]
--- NOTE | 2017-05-16 20:36 | PDOC DISCHARGE SUMMARY ---
General - Admit/Disc Date/PCP Admission Date/Primary Care Provider: 05/16/17 10:44 Discharge Date: 05/16/17 - Discharge Diagnosis (1) Bipolar 1 disorder Is this a current diagnosis for this admission?: Yes Summary: Pt previously non compliant with medications presented today the same as she presented on 04/27 when she was manic. Insistent that she is pain when no etiology for her pain. Attempted to manage patient on the L&D and to rule out labor. NO cervical change since 0800 this am. However, since approx 1800 pt has been increasingly difficult to manage and appears to be worsening in manic phase. Nothing helps her "pain". Exam is benign. Labs unremarkable except for WBC of 13. S/w Dr. Traore in ER because management in the ER for further evaluation and mangement of her psychiatric issues is more beneficial to her. (2) Is this a current diagnosis for this admission?: Yes Summary: 35+6ega. Minimal inc BPs this am upon presentation due to patient writhing. Labs unremarkable. No e/o active labor. No e/o obstetrical cause for pain. Discharged from labor and delivery due to need for evaluation in the ER. Very much appreciate Dr. Traore assistance with patient. - Additional Information Home Medications: Pnv No.122/Iron/Folic Acid [ Multi Tablet] 1 tab PO DAILY 04/27/17 History of Present Illness History of Present Illness: KELLI DANIEL is a 21 year old female brought in by family with reported pain - no etiology for pain. History of Bipolar and poor medciation compliance. 35+ 6ega Hospital Course Hospital Course: Observ on L&D today. No etiology for pain. Not in labor. Suspect manic episode again . Need for continued evaluation in the ER. Physical Exam - Physical Exam General appearance: PRESENT: disheveled, mild distress. ABSENT: cooperative Head exam: PRESENT: atraumatic, normocephalic Respiratory exam: PRESENT: clear to auscultation isabella, symmetrical, unlabored. ABSENT: wheezes Cardiovascular exam: PRESENT: RRR. ABSENT: diastolic murmur, rubs, systolic murmur Pulses: PRESENT: normal dorsalis pedis pul, +2 pedal pulses bilateral Vascular exam: PRESENT: normal capillary refill GI/Abdominal exam: PRESENT: normal bowel sounds, soft, tenderness - diffuse ttp ("everywhere hurts per patient", minimal increase in ttp over adnexa. No uterine ttp. ABSENT: distended, guarding, mass, organolmegaly, rebound Rectal exam: PRESENT: deferred Psychiatric exam: PRESENT: agitated, manic. ABSENT: appropriate affect Skin exam: PRESENT: dry, intact, warm. ABSENT: cyanosis, rash Result Laboratory Results: 05/16/17 10:42 05/16/17 10:42 05/16/17 05/16/17 05/16/17 09:26 10:42 10:42 WBC 13.9 H RBC 4.41 Hgb 12.8 Hct 38.2 MCV 87 MCH 29.1 MCHC 33.5 RDW 13.4 Plt Count 214 Seg Neutrophils % 83.6 H Lymphocytes % 10.2 L Monocytes % 5.3 Eosinophils % 0.4 Basophils % 0.5 Absolute Neutrophils 11.6 H Absolute Lymphocytes 1.4 Absolute Monocytes 0.7 Absolute Eosinophils 0.1 Absolute Basophils 0.1 Sodium 136.3 L Potassium 4.0 Chloride 106 Carbon Dioxide 21 L Anion Gap 9 BUN 9 Creatinine 0.57 Est GFR ( Amer) > 60 Est GFR (Non-Af Amer) > 60 Glucose 80 Uric Acid 4.2 Calcium 9.7 Total Bilirubin 0.6 AST 14 ALT 20 Alkaline Phosphatase 138 H Total Protein 6.6 Albumin 3.6 Urine Color YELLOW Urine Appearance CLOUDY Urine pH 7.0 Ur Specific [place] 1.019 Urine Protein NEGATIVE Urine Glucose (UA) NEGATIVE Urine Ketones NEGATIVE Urine Blood NEGATIVE Urine Nitrite NEGATIVE Ur Leukocyte Esterase LARGE H Urine WBC (Auto) 27 Urine RBC (Auto) 1 Impressions: Obstetrics Ultrasound 05/16/17 00:00 IMPRESSION: LIMITED OBSTETRICAL ULTRASOUND WITH MEASURED PARAMETERS DELINEATED ABOVE. Trimester of : Third trimester - 28 weeks to delivery. Plan Discharge Plan: Discharge patient to the ER for continued evaluation. Appreciate Dr. Traore assistance with this patient. Time Spent: Greater than 30 Minutes
[2017-05-17] MEDS ORDERED: RISPERIDONE 0.25 MG TABLET PO SCH (10:00)
[2017-05-17] MEDS ORDERED: CEFTRIAXONE 1 GM/D5W RTU 1 GM/50 ML RTUPB IV SCH (10:00)
== END 2017-05-16 20:09 ==
LOC: LC 09:17 → LR 10:44
PROVIDERS: ADMIT Student in an Organized Health Care Education/Training Program; ATTEND Student in an Organized Health Care Education/Training Program
PROC: 4A1HXCZ Monitoring of Products of Conception, Cardiac Rate, External Approach (ICD-10-PCS; principal; 2017-05-16)
DX: O99.343 Other mental disorders complicating pregnancy, third trimester (principal); F31.9 Bipolar disorder, unspecified; O99.89 Other specified diseases and conditions complicating pregnancy, childbirth and the puerperium; M79.1 Myalgia; Z91.14 Patient's other noncompliance with medication regimen; Z3A.35 35 weeks gestation of pregnancy
CPT/HCPCS: 59025; 36415; 87086; 83615; 84156; 84550; 82570; 85025; 80053; 81001; 87081; 80307; 87491; 87591; 76815; G0480 ×2; J3490 ×4; J1200; J2765; J2300

== ENCOUNTER 2017-05-19 11:53 | Outpatient (CLI) | payer MEDICAID | END 2017-05-19 12:49 | disposition home or self-care (01) | LOC: LC 11:53 | PROVIDERS: ATTEND Obstetrics & Gynecology | PROC: 4A1HXCZ Monitoring of Products of Conception, Cardiac Rate, External Approach (ICD-10-PCS; principal; 2017-05-19) | DX: Z34.93 Encounter for supervision of normal pregnancy, unspecified, third trimester (principal); Z36 Encounter for antenatal screening of mother; Z3A.36 36 weeks gestation of pregnancy | CPT/HCPCS: 59025 ==

== ENCOUNTER 2017-05-25 06:34 | Inpatient (IN) | payer MEDICAID ==
[2017-05-25] MEDS ORDERED: RINGERS SOLUTION,LACTATED 1,000 ML IV PRN (06:58)
[2017-05-25] MEDS ORDERED: OXYTOCIN/NORMAL SALINE 20 UNIT/1,000 ML RTUINJ IV PRN ×2 (07:00→20:39)
[2017-05-25] MEDS ORDERED: RINGERS SOLUTION,LACTATED 300 ML IV ONE (07:00)
[2017-05-25 07:54] LABS: APPEARANCE,URINE CLEAR; BILIRUBIN,URINE NEGATIVE (NEGATIVE); GLUCOSE, URINE NEGATIVE (NEGATIVE); KETONES,URINE NEGATIVE (NEGATIVE); LEUKOCYTE ESTERASE,URINE NEGATIVE (NEGATIVE); NITRITE,URINE NEGATIVE (NEGATIVE); PROTEIN,URINE NEGATIVE (NEGATIVE); UROBILINOGEN,URINE NEGATIVE mg/dL (<2.0)
[2017-05-25 08:06] LABS: ABSOLUTE BASOPHILS # (AUTO) 0.1 10^3/uL (0.0-0.2); ABSOLUTE EOSINOPHILS # (AUTO) 0.1 10^3/uL (0.0-0.6); MEAN CORPUSCULAR HEMOGLOBIN 28.4 pg (27.0-33.4)
[2017-05-25] MEDS ORDERED: OXYTOCIN/NORMAL SALINE 0 UNIT/0 ML RTUINJ ONE (08:10)
[2017-05-25 08:11] LABS: URINE BARBITURATES SCREEN NEGATIVE; URINE METHADONE SCREEN NEGATIVE; URINE OPIATES LOW NEGATIVE; URINE PHENCYCLIDINE SCREEN NEGATIVE
[2017-05-25 08:34] LABS: ABSOLUTE LYMPHOCYTES (AUTO) 1.9 10^3/uL (0.5-4.7); ABSOLUTE MONOCYTES (AUTO) 0.8 10^3/uL (0.1-1.4); ABSOLUTE NEUT (AUTO) 9.4 10^3/uL (1.7-8.2); BASOPHILS % (AUTO) 0.9 % (0-2); EOSINOPHILS % (AUTO) 0.6 % (0-6); HEMOGLOBIN 12.1 g/dL (12.0-15.5); HGB HCT DIFFERENCE -0.7; LYMPHOCYTES % (AUTO) 15.3 % (13-45); MEAN CORPUSCULAR HGB CONC 32.6 g/dL (32.0-36.0); MEAN CORPUSCULAR VOLUME 87 fl (80-97); MONOCYTES % (AUTO) 6.4 % (3-13); RED BLOOD COUNT 4.25 10^6/uL (3.72-5.28); RED CELL DISTRIBUTION WIDTH 14.2 % (11.5-14.0); SEGMENTED NEUTROPHILS % (AUTO) 76.8 % (42-78); WHITE BLOOD COUNT 12.3 10^3/uL (4.0-10.5)
[2017-05-25] MEDS ORDERED: HYDROXYZINE PAMOATE 50 MG CAPSULE ONE ×3 (09:27→20:59)
[2017-05-25] MEDS ORDERED: NALBUPHINE HCL INJ 10 MG/1 ML AMPULE ONE (11:12)
--- NOTE | 2017-05-25 11:38 | L&D Progress Notes ---
PROGRESS NOTES Datetime Report Generated by CPN: 05/25/2017 11:38 PROGRESS NOTE Impression Other: IOL @ [id number] Procedures- Other: morning rounds Plan: Continue Present Management; Induction Informed Consent Obtained: Vaginal Delivery; Induction of Labor; Risks, Benefits and Alternatives Discussed Vital Signs : Reviewed Vital Signs Comments: mild range bps as pain has increased Comment: S: pt. napping on and off and completely relaxed after nubain. Denies concerns at this time O: cervix per Dr. Alvarez at 0730am, pit @ 8mu/min, BP mild range A: IUP @ 37w1d IOL secondary to IUGR and Bipolar disorder poorly controlled-stable at this time P: continue IOL, epiduralp prn, will continue to monitor BPs and order PIH labs if persistent mild range BPs. VAGINAL EXAM Contractions: 1.5-3 MEMBRANES Membranes: Intact FETUS A FHR - Baseline: 130 Accelerations: 15X15 Decelerations: Prolonged FHR Comments: decel resolved after repositioning SIGNATURE SIGNATURE: [id number] Assignment: Annie Neilsen, MD Signature: with User ID: [email or web address] : with User ID: [email or web address]
[2017-05-25] MEDS ORDERED: EPHEDRINE SULFATE INJ 50 MG/1 ML AMPULE ONE (15:44)
[2017-05-25] MEDS ORDERED: FENTANYL/BUPIVACAINE/NS/PF 200 MCG/100 ML RTUINJ EPI ONE (15:44)
[2017-05-25] MEDS ORDERED: BUPIVACAINE HCL 0.25 % INJ/PF (2.5 MG/1 ML) 30 ML VIAL ONE ×2 (15:44→19:55)
[2017-05-25] MEDS ORDERED: OXYTOCIN/NORMAL SALINE 20 UNIT/1,000 ML RTUINJ ONE (19:36)
[2017-05-25] MEDS ORDERED: LIDOCAINE 1% INJ-PF (10 MG/ML) 30 ML SDV ONE (19:36)
[2017-05-25] MEDS ORDERED: MISOPROSTOL 0.2 MG TABLET ONE ×2 (19:36→22:32)
[2017-05-25] MEDS ORDERED: ACETAMINOPHEN 650 MG SUPP.RECT PR PRN (20:39)
[2017-05-25] MEDS ORDERED: ACETAMINOPHEN WITH CODEINE #3 TABLET PO PRN (20:39)
[2017-05-25] MEDS ORDERED: PROMETHAZINE HCL INJ 25 MG/1 ML VIAL IV PRN (20:39)
[2017-05-25] MEDS ORDERED: NA PHOS,M-B/NA PHOS,DI-BA (ADULT) 133 ML ENEMA PR PRN (20:39)
[2017-05-25] MEDS ORDERED: PROMETHAZINE HCL 25 MG SUPP.RECT PR PRN (20:39)
[2017-05-25] MEDS ORDERED: ZOLPIDEM TARTRATE 5 MG TABLET PO PRN (20:39)
[2017-05-25] MEDS ORDERED: BENZOCAINE/MENTHOL AEROSOL SPRAY 56 ML TOP PRN (20:39)
[2017-05-25] MEDS ORDERED: MEASLES,MUMPS&RUBELLA VACC/PF 0.5 ML VIAL SUBCUT PRN (20:39)
[2017-05-25] MEDS ORDERED: PSEUDOEPHEDRINE HCL 30 MG TABLET PO PRN (20:39)
[2017-05-25] MEDS ORDERED: DIBUCAINE 1% OINTMENT 28 GM TP PRN (20:39)
[2017-05-25] MEDS ORDERED: DIPHENHYDRAMINE HCL 25 MG CAPSULE PO PRN (20:39)
[2017-05-25] MEDS ORDERED: PROMETHAZINE HCL 25 MG TABLET PO PRN (20:39)
[2017-05-25] MEDS ORDERED: DIPH/PERTUSS(ACELL)/TETANUS VAC/PF 0.5 ML SYR (>=10YO) IM PRN (20:39)
[2017-05-25] MEDS ORDERED: GLYCERIN/WITCH HAZEL LEAF 1 EACH MED..PAD TP PRN (20:39)
[2017-05-25] MEDS ORDERED: MAGNESIUM HYDROXIDE SUSP 30 ML UDCUP PO PRN (20:39)
[2017-05-25] MEDS ORDERED: IBUPROFEN 800 MG TABLET ONE (21:10)
--- NOTE | 2017-05-25 22:01 | Delivery Summary ---
Del Sum A-C Datetime Report Generated by CPN: 05/25/2017 22:00 DELIVERY PERSONNEL DELIVERY PERSONNEL: [id number] Delivery Doctor:: Annie Alvarez MD Labor and Delivery Nurse:: Jamilah Vu RN Nursery Nurse:: Kylie Watts RN Publication Editor/MANAGER HOSPICE: [facility]ERNAL INFORMATION Delivery Anesthesia: Epidural Medications After Delivery: Pitocin Drip 20 Units/1000ml NSS Estimated Blood Loss (ml): 100 Maternal Complications: None Provider Comments: When pt complete and pushing at +2 to +3 station, repetitve lates noted refractpry to oxygen, positioning and fluids. Kiwi applied to vertex and pulled over 2 contractions to delivery. No pop offs. Max pressure 550. Head delivered OA. Shoulders and body delivered easily thereafter. LACEMAKER/OP bulb suctioned. Cord clamped and cut. Placenta spont and intact. Mom and baby doing well. LABOR SUMMARY EDC: 06/14/2017 00:00 No. Babies in Womb: 1 Attempted: No Labor Anesthesia: Epidural LABOR INFORMATION Reason for Induction: Intrauterine Growth Retardation Onset of Labor: 05/25/2017 14:46 Complete Dilatation: 05/25/2017 20:09 Oxytocin: Induction Group B Beta Strep: Negative Antibiotics # of Doses: 0 Steroids Given: None Reason Steroids Not Administered: Not Applicable MEMBRANES Membranes Rupture Method: Artificial Rupture of Membranes: 05/25/2017 14:46 Length of Rupture (hr): 5.60 Amniotic Fluid Color: Clear Amniotic Fluid Amount: Moderate Amniotic Fluid Odor: Normal STAGES OF LABOR Stage 1 hr: 5 Stage 1 min: 23 Stage 2 hr: 0 Stage 2 min: 13 Stage 3 hr: 0 Stage 3 min: 2 Total Time in Labor hr: 5 Total Time in Labor min: 38 VAGINAL DELIVERY Episiotomy: None Laceration Extension: N/A Laceration Type: None Other Laceration: superficial hemostatic abrasion at left hymenal ring Laceration Repair: Not Applicable Sponge Count Correct: N/A Sharps Count Correct: N/A CSECTION DELIVERY Primary Indication: N/A Secondary Indication: N/A CSection Incidence: N/A Labor: N/A Elective: N/A CSection Incision: N/A BABY A INFORMATION Infant Delivery Date/Time: 05/25/2017 20:22 Method of Delivery: Vaginal Born in Route : No : N/A Forceps: N/A Vacuum Extraction: Successful Shoulder Dystocia : No ASSISTED DELIVERY BABY A Indication for Assisted Delivery: Repetitive lates Catheter Prior to Procedure: Yes Station Vacuum/Forcep Apply: +2 Position Vacuum/Forcep Apply: Right Occipital Anterior Vacuum Number of Pulls: 2 Vacuum Number of PopOffs: 0 Vacuum Maximum Pressure Obtained: 550 Reduce Pressure btwn Ctx: No Vacuum Care Companion: KIWI Total Time Vacuum Applied: 2 minutes PRESENTATION/POSITION BABY A Presentation: Cephalic Cephalic Presentation: Vertex Vertex Position: Right Occipital Anterior Breech Presentation: N/A PLACENTA INFORMATION BABY A Placenta Delivery Time : 05/25/2017 20:24 Placenta Method of Delivery: Spontaneous Placenta Status: Delivered SCORES BABY A Heart Rate 1 min: >100 bpm Resp Effort 1 min: Good Cry Reflex Irritability 1 min: Cough or Sneeze or Pulls Away Muscle Tone 1 min: Active Motion Color 1 min: Body [place], Extremities Blue Resuscitation Effort 1 min: Tactile Stimulation SCORE 1 MIN: 9 Heart Rate 5 min: >100 bpm Resp Effort 5 min: Good Cry Reflex Irritability 5 min: Cough or Sneeze or Pulls Away Muscle Tone 5 min: Active Motion Color 5 min: Body [place], Extremities Blue Resuscitation Effort 5 min: Tactile Stimulation SCORE 5 MIN: 9 INFORMATION BABY A Gestational Age at Delivery: 37.1 Gestational Status: Early Term- 37- 38.6 Weeks Outcome : Liveborn Condition : Stable Sex: Male IDENTIFICATION BABY A Infant Verification Date/Time: 05/25/2017 20:49 ID Band Number: [id number] Mother's Name Verified: Yes RN Verifying Infant: R MARIANA VuC Additional Verifying Personnel: Olivier Boyce RN WEIGHT/LENGTH BABY A Infant Birthweight (gm): 2145 Weight (lb): 4 Infant Weight (oz): 12 Length (in): 17.50 Infant Length (cm): 44.45 CORD INFORMATION BABY A No. Cord Vessels: 3 Nuchal Cord : N/A Cord Blood Taken: Yes-For Storage (Mom's Blood type +) Infant Suction: None ASSESSMENT BABY A Complications: Multiple Late Decels; Other Infant Complications- Other: IUGR Physical Findings at Delivery: Puncture Wound from Scalp Electrode Skin to Skin: No Skin to Skin Time (min): Pt declined Artistic Director/ALS Called : No Care By: Juanito Watts RN BABY B INFORMATION : N/A SIGNATURES Signature: with User ID: [email or web address]
[2017-05-25] MEDS ORDERED: MISOPROSTOL 0.2 MG TABLET PR ONE (22:28)
[2017-05-25] MEDS ORDERED: ACETAMINOPHEN WITH CODEINE #3 TABLET ONE (23:01)
[2017-05-25] MEDS: ACETAMINOPHEN WITH CODEINE #3 TABLET PO PRN (23:01)
--- NOTE | 2017-05-25 23:13 | Admission Physical ---
Datetime Report Generated by CPN: 05/25/2017 23:13 CURRENT ADMISSION Hx Assessment: The History has been Reviewed and is Current Chief Complaint: Scheduled Induction of Labor Chief Complaint: Other Chief Complaint Other: Pelvic Pain - presented writhing in pain, moaning and screaming - uncooperative with exam Indication for Induction: IUGR; Other Indication for Induction: Not Applicable Indication for Induction- Other: Bipolar disorder and non adherent to medication regimen Admit Plan: Admit to Unit Admit Plan: Admit to Unit; Observation/Evaluation ALLERGIES Medication Allergies: No Medication Allergies: No Known Allergies (05/25/2017) Medication Allergies: No Known Allergies (05/19/2017) Medication Allergies: No Known Allergies (11/03/2016) Latex: Unknown Food Allergies: N/A Environmental Allergies: N/A OBSTETRICAL HISTORY EDC: 06/14/2017 00:00 : 1 Para: 0 Term: 0 : 0 SAB: 0 IAB: 0 Livin Gestational Diabetes: No Rh Sensitization: No Incompetent Cervix: No SHERICE: No Infertility: No ART Treatment: No Uterine Anomaly: No IUGR: No Hx Previous C/S: No Macrosomia: No Hx Loss/Stillborn: No PIH: No Hx : No Placenta Previa/Abruption: No Depression/PP Depression: No PTL/PROM: No Post Hemorrhage: No Current Procedures: Ultrasound; NST Obstetrical History Comments: G1 : current SEE RECORDS Alcohol: No Marijuana : No Cocaine: No Other Illicit Drugs: No Cigarettes: Former Smoker. [id number] MEDICAL HISTORY Diabetes: No Blood Transfusion: No Pulmonary Disease (Asthma, TB): No Breast Disease: No Hypertension: No Information Writer Surgery: No Heart Disease: No Hosp/Surgery: No Autoimmune Disorder: No Anesthetic Complications: No Kidney Disease: No Abnormal Pap Smear: No Neuro/Epilepsy: No Psychiatric Disorders: Yes Other Medical Diseases: No Hepatitis/Liver Disease: No Significant Family History: No Varicosities/Phlebitis: No Trauma/Violence : No Thyroid Dysfunction: No Medical History Comments: BIPOLAR- HOSP FOR MANIC EPISODES INFECTIOUS HISTORY Gonorrhea: No Genital Herpes: No Chlamydia: Yes Tuberculosis: No Syphilis: No Hepatitis: No HIV/AIDS Exposure: No Rash or Viral Illness: No HPV: No PHYSICAL EXAM General: Normal General: Normal HEENT: Deferred HEENT: Normal Neurologic: Normal Neurologic: Normal Thyroid: Deferred Thyroid: Normal Heart: Normal Heart: Normal Lungs: Normal Lungs: Normal Breast: Deferred Breast: Deferred Back: Normal Back: Normal Abdomen: Normal Abdomen: Abnormal Genitourinary Exam: Normal Extremities: Normal Extremities: Normal DTRs: Normal DTRs: Normal Pelvic Type: Not Done Pelvic Type: Adequate Physical Exam Comments: cervical exam by Dr. Alvarez on admission Physical Exam Comments: reports entire abd is painful, increase pain in lower abd over bladder and pubic bone Vital Signs: Reviewed Vital Signs: Reviewed Details Vital Signs: mild range bps VAGINAL EXAM Dilatation: 4 Dilatation: 1 Dilatation: 1 Effacement: 50 Effacement: 0 Effacement: 25 Station: -2 Station: -3 Station: -3 Contraction Comments: 4-6 Contraction Comments: 1.5-3 Contraction Comments: none Contraction Comments: rare to q 8, minimal to palpation MEMBRANES Membranes: Ruptured Membranes: Intact Membranes: Intact Membranes: Intact Amniotic Fluid Color: Clear FETUS A EGA: 37.1 EGA: 35.6 Monitoring: External US Monitoring: External US FHR- Baseline: 120 Variability: Moderate 6-25bpm Accelerations: 15X15 Decelerations: None Decelerations: None FHR Category: Category I Presentation: Vertex Admit Comment: 21yo @ 37w1d with IOL this am per Dr. Germain secondary to IUGR AC <3%ile _ bipolar disorder with two admissions in after self d/c'ing meds and manic episodes. A pos, rubella immune, GBS neg, NKDA. Hx of smoking but stopped after positive test. Started on pitocin this am after assessment by Dr. Alvarez. Will continue IOL protocol, epidural prn. sales planner prior to discharge. Denies any other significant medical hx. Reports +FM, denies LOF/bleeding. Admit Comment: 21yo at 35+6ega presents for the 2nd time in 2 weeks with "pain everywhere" and very uncooperative with exam. Demanding pain medications but writhing and not allowing exam and not allowing monitoring. Attempted to explain to patient that her cvx was only one and she is not currently in labor and that she needed to cooperate with exam before she could have pain medication. Her family members wanted us to deliver the baby. Reviewed due dates and B-H ctx and reviewed normal pains. Also reviewed her Bipolar and meds. Currently on Vistaril 25mg poTID and reports that she is taking the medication was on Latuda before and non compliant and presented in full manic episode - 04/27 visit. TOday is similar presentation and when explained to her that no medication would be given until we were able to asses her and the baby she finally allowed exam and stopped writhing. Reviewed with pt that she could be for another 4 wks -5wks and that epectations need to be reviewed about normla discomforts. Psych consult requested again this visit. 5mg Nubain and 10mg reglan given. Will obtain labs and US. PIH labs done and will get 24 hr UTP. Likely pain contributing to elevated BPs. Patients pain appears significantly out of porportion to her exam. Will admit for obs due to pain out of porportion and elev pressure and pt would not likely be compliant with 24 hr UTP collection. Will recommend MFM consult for evaluation potential delivery at 37-39wks due to poorly controlled mood. +THC today on urine and previously as well - likely contributing to nausea. Urine appears dirty - will get culture. Reviewed THC unsafe in and around babies. Observ for multiple issues. PLANS FOR LABOR AND DELIVERY Labor and Delivery: None Pain Management: Epidural Feeding Preference: Formula Benefit of Breast Feed Discussed: Yes Circumcision: Yes INFORMED CONSENT Informed Consent Obtained: Induction of Labor; Risks, Benefits and Alternatives Discussed Informed Consent Obtained: Vaginal Delivery; Induction of Labor; Risks, Benefits and Alternatives Discussed Informed Consent Obtained: Risks, Benefits and Alternatives Discussed Informed Consent Obtained: Risks, Benefits and Alternatives Discussed Assignment: Anine Alvarez MD Signature: with User ID: [email or web address] Signature: with User ID: Tobin : with User ID: [email or web address] : with User ID: Tobin
[2017-05-26] MEDS: HYDROXYZINE PAMOATE 50 MG CAPSULE PO SCH ×4 (01:45→21:07)
[2017-05-26] MEDS: IBUPROFEN 800 MG TABLET PO SCH ×4 (01:45→21:07)
[2017-05-26] MEDS: FAMOTIDINE 20 MG TABLET PO SCH ×3 (01:45→21:07)
[2017-05-26] MEDS: ACETAMINOPHEN WITH CODEINE #3 TABLET PO PRN ×2 (04:05→14:36)
[2017-05-26] MEDS: SENNOSIDES/DOCUSATE 8.6-50 MG 1 EACH TABLET PO SCH (09:19)
[2017-05-26] MEDS: DOCUSATE SODIUM 100 MG CAPSULE PO SCH ×2 (09:19→17:47)
[2017-05-26] MEDS: FERROUS SULFATE 325 MG TABLET PO SCH ×2 (09:19→17:49)
[2017-05-26] MEDS: PRENATAL VITAMIN W-O CA NO5/FE FUMARATE/FA CAPSULE PO SCH (09:20)
--- NOTE | 2017-05-26 11:11 | PDOC PROGRESS REPORT ---
Subjective-OB Subjective: Post Delivery Day: 21 year old. Denies any needs at this time Doing well, alot of family in room, pt. holding baby, plans to breast and bottle Physical Exam (OB) Vital Signs: Temp Pulse Resp BP Pulse Ox 97.8 F 87 16 125/78 98 05/26/17 08:00 05/26/17 08:00 05/26/17 08:00 05/26/17 08:00 05/26/17 08:00 Intake & Output 05/25/17 05/26/17 05/27/17 06:59 06:59 06:59 Weight 91.45 kg - PIH/Pre-Eclampsia Clonus: Negative Headache: Absent Epigastric Pain: No Visual Changes: No - Lochia Lochia Amount: Small 10-25 ml Lochia Color: Rubra/Red - Abdomen Description: Soft, Flat Hernia Present: No Fundal Description: Firm, Midline Fundal Height: u/u - u/2 Objective-Diagnostic Laboratory: 05/25/17 07:23 Assessment and Plan(PN) - Assessment and Plan (1) IUGR (intrauterine growth restriction) Is this a current diagnosis for this admission?: Yes (2) Status post vacuum-assisted vaginal delivery Is this a current diagnosis for this admission?: Yes (3) Bipolar 1 disorder Is this a current diagnosis for this admission?: Yes - Time Spent with Patient Time with patient: Less than 15 minutes Medications reviewed and adjusted accordingly: Yes - Disposition Anticipated Discharge: Home Within: within 24 hours
[2017-05-26 16:00] LABS: HEMATOCRIT 33.5 % (36.0-47.0); HEMOGLOBIN 11.2 g/dL (12.0-15.5); HGB HCT DIFFERENCE 0.1; MEAN CORPUSCULAR HEMOGLOBIN 29.1 pg (27.0-33.4); MEAN CORPUSCULAR HGB CONC 33.5 g/dL (32.0-36.0); MEAN CORPUSCULAR VOLUME 87 fl (80-97); RED BLOOD COUNT 3.86 10^6/uL (3.72-5.28); RED CELL DISTRIBUTION WIDTH 14.1 % (11.5-14.0); WHITE BLOOD COUNT 19.5 10^3/uL (4.0-10.5)
[2017-05-27] MEDS: ACETAMINOPHEN WITH CODEINE #3 TABLET PO PRN (01:56)
[2017-05-27] MEDS: IBUPROFEN 800 MG TABLET PO SCH ×2 (05:57→14:17)
[2017-05-27] MEDS: HYDROXYZINE PAMOATE 50 MG CAPSULE PO SCH ×2 (05:57→14:17)
[2017-05-27 08:16] VITALS: BP 125/79
--- NOTE | 2017-05-27 09:48 | PDOC DISCHARGE SUMMARY ---
Final Diagnosis Discharge Date: 05/27/17 - Final Diagnosis (1) IUGR (intrauterine growth restriction) Is this a current diagnosis for this admission?: Yes (2) Status post vacuum-assisted vaginal delivery Is this a current diagnosis for this admission?: Yes (3) Bipolar 1 disorder Is this a current diagnosis for this admission?: Yes (4) Hyperemesis Is this a current diagnosis for this admission?: Yes (5) Vomiting during Is this a current diagnosis for this admission?: Yes Discharge Data - Discharge Medication Home Medications: Pnv No.122/Iron/Folic Acid [ Multi Tablet] 1 tab PO DAILY 04/27/17 Docusate Sodium [Colace 100 mg Capsule] 100 mg PO BID #60 capsule 05/27/17 Ferrous Sulfate [Feosol 325 mg Tablet] 325 mg PO BID #60 tablet 05/27/17 Ibuprofen [Motrin 800 mg Tablet] 800 mg PO Q8 #60 tablet 05/27/17 Gestational Age: 37.1 Reason(s) for Admission: Other - iugr Procedures: NST Intrapartum Procedure(s): Spontaneous Vaginal Delivery, Vacuum Extraction - Data Baby 1 Male at 1 minute: 9 at 5 minutes: 9 Weight: 2145 kg Home with Mother: No Complications: Yes - iugr, maternal psych issues - Diagnosis Test Laboratory: Temp Pulse Resp BP Pulse Ox 98.3 F 74 15 125/79 100 05/27/17 08:28 05/27/17 08:28 05/27/17 08:28 05/27/17 07:49 05/27/17 08:28 05/25/17 05/25/17 05/26/17 07:00 07:23 15:52 RBC 4.25 3.86 Hgb 12.1 11.2 L Hct 37.0 33.5 L Urine Opiates Screen NEGATIVE - Discharge information/Instructions Discharge Activity: Activity As Tolerated, Pelvic Rest, No tub bath Discharge Diet: Regular Disposition: HOME, SELF-CARE Follow up with: [facility] in: 1, Weeks
[2017-05-27] MEDS: SENNOSIDES/DOCUSATE 8.6-50 MG 1 EACH TABLET PO SCH (10:16)
[2017-05-27] MEDS: FERROUS SULFATE 325 MG TABLET PO SCH ×2 (10:16→18:46)
[2017-05-27] MEDS: DOCUSATE SODIUM 100 MG CAPSULE PO SCH ×2 (10:17→18:46)
[2017-05-27] MEDS: PRENATAL VITAMIN W-O CA NO5/FE FUMARATE/FA CAPSULE PO SCH (10:17)
[2017-05-27] MEDS: FAMOTIDINE 20 MG TABLET PO SCH (10:17)
== END 2017-05-27 19:30 | disposition home or self-care (01) | DRG 775 ==
LOC: LR 06:34 → 2S 23:11
PROVIDERS: ADMIT Specialist; ATTEND Specialist
PROC: 10D07Z6 Extraction of Products of Conception, Vacuum, Via Natural or Artificial Opening (ICD-10-PCS; principal; 2017-05-25)
PROC: 3E033VJ Introduction of Other Hormone into Peripheral Vein, Percutaneous Approach (ICD-10-PCS; 2017-05-25)
PROC: 4A1HXCZ Monitoring of Products of Conception, Cardiac Rate, External Approach (ICD-10-PCS; 2017-05-25)
DX: O36.5930 Maternal care for other known or suspected poor fetal growth, third trimester, not applicable or unspecified (principal); O99.344 Other mental disorders complicating childbirth; F31.9 Bipolar disorder, unspecified; O21.0 Mild hyperemesis gravidarum; Z3A.37 37 weeks gestation of pregnancy; Z37.0 Single live birth; Z87.891 Personal history of nicotine dependence
CPT/HCPCS: 36415; 80307; 81005; 85025; 85027; 86850; 86900; 86901; 88307; 94760; G0480; J2300; J2590; J3490

== ENCOUNTER 2017-08-08 16:02 | Emergency (ER) | payer MEDICAID ==
--- NOTE | 2017-08-08 16:44 | ER Document Report ---
ED Medical Screen (RME) - General Chief Complaint: Abdominal Pain Stated Complaint: WEAKNESS Time Seen by Provider: 08/08/17 16:42 TRAVEL OUTSIDE OF THE [place] IN LAST 30 DAYS: No - HPI Notes: 08/08/17 16:44 Abdominal pain 3 days. Patient initially not talking upon evaluation - Related Data Allergies/Adverse Reactions: No Known Allergies Allergy (Verified 08/08/17 16:17) Past Medical History Endocrine Medical History: Denies: Hx Diabetes Mellitus Type 1, Hx Diabetes Mellitus Type 2 Renal/ Medical History: Denies: Hx Peritoneal Dialysis Past Surgical History: Reports: Hx Cholecystectomy - Immunizations Hx Diphtheria, Pertussis, Tetanus Vaccination: - Unknown Review of Systems - Review of Systems Gastrointestinal: Abdominal pain Physical Exam - Vital signs Vitals: Temp Pulse Resp BP Pulse Ox 99.3 F 95 16 138/99 H 100 08/08/17 16:13 08/08/17 16:13 08/08/17 16:13 08/08/17 16:13 08/08/17 16:13 - Abdominal Inspection: Normal Distension: No distension Bowel sounds: Normal Tenderness: Nontender Course - Vital Signs Vital signs: Temp Pulse Resp BP Pulse Ox 99.3 F 95 16 138/99 H 100 08/08/17 16:13 08/08/17 16:13 08/08/17 16:13 08/08/17 16:13 08/08/17 16:13
[2017-08-08] MEDS ORDERED: CAPSAICIN 0.025% CREAM 60 GM TP ONE (16:51)
[2017-08-08] MEDS: NORMAL SALINE 1000 ML 1,000 ML IV PRN ×2 (17:15→22:25)
[2017-08-08 17:32] LABS: ABSOLUTE BASOPHILS # (AUTO) 0.1 10^3/uL (0.0-0.2); ABSOLUTE LYMPHOCYTES (AUTO) 1.8 10^3/uL (0.5-4.7); ABSOLUTE MONOCYTES (AUTO) 1.2 10^3/uL (0.1-1.4); ABSOLUTE NEUT (AUTO) 14.4 10^3/uL (1.7-8.2); BASOPHILS % (AUTO) 0.7 % (0-2); HEMATOCRIT 46.2 % (36.0-47.0); HEMOGLOBIN 15.4 g/dL (12.0-15.5); LYMPHOCYTES % (AUTO) 10.3 % (13-45); MEAN CORPUSCULAR HEMOGLOBIN 28.1 pg (27.0-33.4); MEAN CORPUSCULAR HGB CONC 33.4 g/dL (32.0-36.0); MEAN CORPUSCULAR VOLUME 84 fl (80-97); MONOCYTES % (AUTO) 6.6 % (3-13); RED BLOOD COUNT 5.49 10^6/uL (3.72-5.28); RED CELL DISTRIBUTION WIDTH 14.4 % (11.5-14.0); SEGMENTED NEUTROPHILS % (AUTO) 82.4 % (42-78); WHITE BLOOD COUNT 17.4 10^3/uL (4.0-10.5)
[2017-08-08 17:52] LABS: ALANINE AMINOTRANSFERASE 31 U/L (9-52); ALBUMIN 5.1 g/dL (3.5-5.0); ALKALINE PHOSPHATASE 93 U/L (38-126); ASPARTATE AMINO TRANSFERASE 24 U/L (14-36); BILIRUBIN,DIRECT 0.6 mg/dL (0.0-0.4); BILIRUBIN,TOTAL 1.4 mg/dL (0.2-1.3); BLOOD UREA NITROGEN 18 mg/dL (7-20); CALCIUM 10.2 mg/dL (8.4-10.2); CARBON DIOXIDE 26 mmol/L (22-30); CHLORIDE 95 mmol/L (98-107); CREATININE RESULT 0.84 mg/dL (0.52-1.25); GLUCOSE 90 mg/dL (75-110); LIPASE 38.2 U/L (23-300); POTASSIUM 3.4 mmol/L (3.6-5.0); SODIUM 143.5 mmol/L (137-145); TOTAL PROTEIN 9.4 g/dL (6.3-8.2)
[2017-08-08 18:12] LABS: ANION GAP 23 (5-19)
[2017-08-08] MEDS ORDERED: CEFTRIAXONE 1 GM/D5W RTU 1 GM/50 ML RTUPB IV ONE (18:22)
[2017-08-08 18:27] LABS: APPEARANCE,URINE CLOUDY; BILIRUBIN,URINE NEGATIVE (NEGATIVE); GLUCOSE, URINE NEGATIVE (NEGATIVE); KETONES,URINE 20 mg/dL (NEGATIVE); LEUKOCYTE ESTERASE,URINE TRACE (NEGATIVE); NITRITE,URINE NEGATIVE (NEGATIVE); PROTEIN,URINE 100 mg/dL (NEGATIVE); URINE SPECIFIC GRAVITY 1.033; UROBILINOGEN,URINE NEGATIVE mg/dL (<2.0)
[2017-08-08] MEDS ORDERED: HALOPERIDOL LACTATE INJ 5 MG/1 ML VIAL IV ONE (18:27)
[2017-08-08] MEDS ORDERED: DIPHENHYDRAMINE HCL 50 MG/ML VIAL IV ONE ×2 (18:27→22:21)
--- NOTE | 2017-08-08 18:32 | ER Document Report ---
ED General - General Mode of Arrival: Ambulatory Information source: Patient TRAVEL OUTSIDE OF THE [place] IN LAST 30 DAYS: No - HPI Onset: Yesterday Onset/Duration: Gradual Quality of pain: Other - "JUST HURTS" Severity: Severe Associated symptoms: Body/muscle aches, Nausea, Vomiting, Weakness. denies: Diarrhea Exacerbated by: Food Relieved by: Denies Similar symptoms previously: No - PATIENT SAYS NO, FAMILY SAYS "GI ISSUES" Recently seen / treated by doctor: No <JARAD MCADAMS - Last Filed: 08/08/17 18:45> <BONILLA NOLAN - Last Filed: 08/08/17 23:03> - General Chief Complaint: Abdominal Pain Stated Complaint: WEAKNESS, "HURT ALL OVER" Time Seen by Provider: 08/08/17 16:42 - HPI Notes: PATIENT IS 2 MOS POST-, NOT BREAST-FEEDING (JARAD MCADAMS) - Related Data Allergies/Adverse Reactions: No Known Allergies Allergy (Verified 08/08/17 16:17) Past Medical History - General Information source: Patient - Social History Smoking Status: Unknown if Ever Smoked Frequency of alcohol use: Occasional Drug Abuse: None - DENIES Lives with: Family Family History: Reviewed & Not Pertinent Patient has suicidal ideation: No Patient has homicidal ideation: No - Past Medical History Cardiac Medical History: Reports: None Pulmonary Medical History: Reports: None EENT Medical History: Reports: None Neurological Medical History: Reports: None Endocrine Medical History: Reports: None. Denies: Hx Diabetes Mellitus Type 1, Hx Diabetes Mellitus Type 2 Renal/ Medical History: Reports: None. Denies: Hx Peritoneal Dialysis Malignancy Medical History: Reports: None GI Medical History: Reports: Other - FREQUENT ABD. PAIN Musculoskeltal Medical History: Reports None Psychiatric Medical History: Reports: None Past Surgical History: Reports: Hx Cholecystectomy - Immunizations Hx Diphtheria, Pertussis, Tetanus Vaccination: - Unknown <JARAD MCADAMS - Last Filed: 08/08/17 18:45> Review of Systems - Review of Systems -: Yes ROS unobtainable due to patient's medical condition - PATIENT COOMPLAINING BITTERLY, NEARLY INCOHERENT <JARAD MCADAMS - Last Filed: 08/08/17 18:45> Physical Exam - Vital signs Interpretation: Hypertensive. No: Tachycardic, Tachypneic, Febrile - General General appearance: Anxious In distress: Moderate - CONTINUOUSLY ROCKING, CRYING, SCREAMING - HEENT Head: Normocephalic Eyes: Normal Conjunctiva: Normal. No: Icteric Ears: Normal Nasal: Normal Mouth/Lips: Normal Mucous membranes: Dry Pharynx: Normal Neck: Normal - Respiratory Respiratory status: No respiratory distress Breath sounds: Normal - Cardiovascular Rhythm: Regular Heart sounds: Normal auscultation Murmur: No - Abdominal Inspection: Normal Distension: No distension Bowel sounds: Hypoactive Tenderness: Nontender - SAYS IT HURTS TO PALPATION, BUT NO GRIMACE, ABDOMEN IS SOFT Organomegaly: No organomegaly - Back Back: Normal - Extremities General upper extremity: Normal inspection General lower extremity: Normal inspection - Neurological Neuro grossly intact: Yes Cognition: Normal Orientation: AAOx4 - Psychological Associated symptoms: Agitated, Anxious, Tearful, Uncooperative - Skin Skin Temperature: Warm Skin Moisture: Dry Skin Color: Normal Skin Turgor: Elastic <JARAD MCADAMS - Last Filed: 08/08/17 18:45> - Vital signs Vitals: Temp Pulse Resp BP Pulse Ox 99.3 F 95 16 138/99 H 100 08/08/17 16:13 08/08/17 16:13 08/08/17 16:13 08/08/17 16:13 08/08/17 16:13 Course - Laboratory Result Diagrams: 08/08/17 17:07 08/08/17 17:07 <JARAD MCADAMS - Last Filed: 08/08/17 18:45> - Laboratory Result Diagrams: 08/08/17 17:07 08/08/17 17:07 <BONILLA NOLAN - Last Filed: 08/08/17 23:03> - Re-evaluation Re-evalutation: 08/08/17 19:34 Patient is asleep I assumed care of the patient. Added urine culture. 08/08/17 21:36 pt's IV had 2 kinks, was not running, not even a liter in, wants something for sleep, Nurse will start another IV and give fluids fast since she was dehydrated. Will have to call her mom to come get her. No vomit while in er, says she still has upper abdominal pain. Labs all normal. 08/08/17 21:37 08/08/17 23:01 feels better iv fluid infused. abdomen non tender, ready to discharge (BONILLA NOLAN) - Vital Signs Vital signs: Temp Pulse Resp BP Pulse Ox 99.3 F 110 H 16 138/99 H 100 08/08/17 16:13 08/08/17 18:01 08/08/17 16:13 08/08/17 16:13 08/08/17 16:13 - Laboratory Laboratory results interpreted by me: 08/08/17 08/08/17 08/08/17 17:07 17:07 18:11 WBC 17.4 H RBC 5.49 H RDW 14.4 H Seg Neutrophils % 82.4 H Lymphocytes % 10.3 L Absolute Neutrophils 14.4 H Potassium 3.4 L Chloride 95 L Anion Gap 23 H Total Bilirubin 1.4 H Direct Bilirubin 0.6 H Total Protein 9.4 H Albumin 5.1 H Urine Protein 100 H Urine Ketones 20 H Ur Leukocyte Esterase TRACE H Discharge <JARAD MCADAMS - Last Filed: 08/08/17 18:45> <BONILLA NOLAN - Last Filed: 08/08/17 23:03> - Discharge Clinical Impression: Dehydration, Generalized pain, Bipolar 1 disorder Abdominal pain Qualifiers: Abdominal location: upper abdomen, unspecified Qualified Code(s): R10.10 - Upper abdominal pain, unspecified Condition: Good Disposition: HOME, SELF-CARE Instructions: Abdominal Pain ([facility]), Dehydration ([facility]) Additional Instructions: plenty of fluids to er if worse rest tomorrow, drink fluids to continue to rehydrate Forms: Return to Work
[2017-08-08 18:42] LABS: URINE BARBITURATES SCREEN NEGATIVE; URINE METHADONE SCREEN NEGATIVE; URINE PHENCYCLIDINE SCREEN NEGATIVE
[2017-08-08 18:54] LABS: URINE OPIATES LOW NEGATIVE
[2017-08-08] MEDS ORDERED: CAPSAICIN 0.025% CREAM 60 GM ONE (22:16)
[2017-08-08] MEDS ORDERED: KETOROLAC TROMETHAMINE INJ/PF 30 MG/1 ML SDV IV ONE (22:21)
[2017-08-09 00:07] VITALS: BP 125/94
== END 2017-08-09 00:02 | disposition home or self-care (01) ==
LOC: ER 16:02
DX: E86.0 Dehydration (principal); F31.9 Bipolar disorder, unspecified; M79.1 Myalgia; R10.10 Upper abdominal pain, unspecified; R53.1 Weakness; R11.2 Nausea with vomiting, unspecified; Z90.49 Acquired absence of other specified parts of digestive tract
CPT/HCPCS: 96376; 99284; 96361; 96375; 96365; 36415; 87086; 84702; 83690; 85025; 87088; 80053; 81001; 80307; 83605; J1200; J1630; J3490; J1885; J7030; J0696

== ENCOUNTER 2018-03-19 19:20 | Emergency (ER) | payer MEDICAID ==
[2018-03-19] MEDS ORDERED: DIPHENHYDRAMINE HCL 50 MG/ML VIAL IV ONE (20:05)
[2018-03-19] MEDS ORDERED: HALOPERIDOL LACTATE INJ 5 MG/1 ML VIAL IV ONE (20:05)
--- NOTE | 2018-03-19 20:10 | ER Document Report ---
ED General - General Chief Complaint: Abdominal Pain Stated Complaint: ABDOMINAL PAIN Time Seen by Provider: 03/19/18 19:45 Mode of Arrival: Ambulatory Information source: Patient Notes: 22-year-old female presents with complaints of suprapubic pain of 3 day duration. Patient noted to be gyrating in the bed. Patient is here with family member who states this happens at least once a month and that they had taken out the gallbladder and appendix and the patient continues to have the symptoms. She denies any vaginal bleeding states it is her normal vaginal discharge. There has been no definitive diagnosis of the patient's pain. Patient insists on having pain medication without answering any questions TRAVEL OUTSIDE OF THE [place] IN LAST 30 DAYS: No - HPI Onset: Other - 3 days Onset/Duration: Waxing and waning Quality of pain: Sharp Severity: Mild Pain Level: 1 Associated symptoms: Chills, Other Exacerbated by: Denies Relieved by: Denies Similar symptoms previously: Yes Recently seen / treated by doctor: Yes - Related Data Allergies/Adverse Reactions: No Known Allergies Allergy (Verified 08/08/17 16:17) Past Medical History - Social History Smoking Status: Never Smoker Cigarette use (# per day): No Chew tobacco use (# tins/day): No Smoking Education Provided: No Family History: Reviewed & Not Pertinent Endocrine Medical History: Denies: Hx Diabetes Mellitus Type 1, Hx Diabetes Mellitus Type 2 Renal/ Medical History: Denies: Hx Peritoneal Dialysis Past Surgical History: Reports: Hx Cholecystectomy - Immunizations Hx Diphtheria, Pertussis, Tetanus Vaccination: - Unknown Review of Systems - Review of Systems Notes: REVIEW OF SYSTEMS: CONSTITUTIONAL : Denies fever, chills, or sweats. Denies recent illness. EENT: Denies eye, ear, throat, or mouth pain or symptoms. Denies nasal or sinus congestion or discharge. Denies throat, tongue, or mouth swelling or difficulty swallowing. CARDIOVASCULAR: Denies chest pain. Denies palpitations or racing or irregular heart beat. Denies ankle edema. RESPIRATORY: Denies cough, cold, or chest congestion. Denies shortness of breath, difficulty breathing, or wheezing. GASTROINTESTINAL: Admits to abdominal pain GENITOURINARY: Denies difficulty urinating, painful urination, burning, frequency, blood in urine, or discharge. FEMALE GENITOURINARY: Denies vaginal bleeding, heavy or abnormal periods, irregular periods. Denies vaginal discharge or odor. MUSCULOSKELETAL: Denies back or neck pain or stiffness. Denies joint pain or swelling. SKIN: Denies rash, lesions or sores. HEMATOLOGIC : Denies easy bruising or bleeding. LYMPHATIC: Denies swollen, enlarged glands. NEUROLOGICAL: Denies confusion or altered mental status. Denies passing out or loss of consciousness. Denies dizziness or lightheadedness. Denies headache. Denies weakness or paralysis or loss of use of either side. Denies problems with gait or speech. Denies sensory loss, numbness, or tingling. Denies seizures. PSYCHIATRIC: Denies anxiety or stress. Denies depression, suicidal ideation, or homicidal ideation. ALL OTHER SYSTEMS REVIEWED AND NEGATIVE. PHYSICAL EXAMINATION: GENERAL: Well-appearing, well-nourished patient is gyrating in the bed HEAD: Atraumatic, normocephalic. EYES: Pupils equal round and reactive to light, extraocular movements intact, conjunctiva are normal. ENT: Nares patent, oropharynx clear without exudates. Moist mucous membranes. NECK: Normal range of motion, supple without lymphadenopathy LUNGS: Breath sounds clear to auscultation bilaterally and equal. No wheezes rales or rhonchi. HEART: Regular rate and rhythm without murmurs ABDOMEN: Soft, tenderness in the suprapubic region, nondistended abdomen. No guarding, no rebound. No masses appreciated. Female : deferred Musculoskeletal: Normal range of motion, no pitting or edema. No cyanosis. NEUROLOGICAL: Cranial nerves grossly intact. Normal speech, normal gait. Normal sensory, motor exams PSYCH: Extremely anxious SKIN: Warm, Dry, normal turgor, no rashes or lesions noted. Dictation was performed using [employer] voice recognition software Physical Exam - Vital signs Vitals: Temp Pulse Resp BP Pulse Ox 97.6 F 125 H 16 123/92 H 98 03/19/18 19:35 03/19/18 19:35 03/19/18 19:35 03/19/18 19:35 03/19/18 19:35 Course - Re-evaluation Re-evalutation: 03/19/18 20:10 My concerns of this patient's presentation is most consistent with psychiatric or secondary gains, it appears patient has the symptoms quite often with no medical diagnosis, nonetheless we will do an extensive workup 07/06/18 21:51 Patient is resting comfortably now that she is received Haldol and Benadryl 03/19/18 23:14 Patient still resting comfortably, is noted that her white count was elevated, therefore CT has been ordered, patient otherwise has been noted to have elevated white counts multiple times in the past as well for I do believe it is all from her symptoms rather than an actual infectious process 03/19/18 23:57 CT noted no significant abnormality father notes that he believes this is all psychiatric in nature as to why this occurs. Patient will be given follow-up with psychiatry After performing a Medical Screening Examination, I estimate there is LOW risk for ACUTE APPENDICITIS, BOWEL OBSTRUCTION, ACUTE CHOLECYSTITIS, PERFORATED DIVERTICULITIS, INCARCERATED HERNIA, PANCREATITIS, PELVIC INFLAMMATORY DISEASE, PERFORATED ULCER, ECTOPIC , or TUBO-OVARIAN ABSCESS, thus I consider the discharge disposition reasonable. Also, there is no evidence or peritonitis , sepsis, or toxicity. I have reevaluated this patient multiple times and no significant life threatening changes are noted. The patient and I have discussed the diagnosis and risks, and we agree with discharging home with close follow-up with the understanding that symptoms and presentations can change. We also discussed returning to the Emergency Department immediately if new or worsening symptoms occur. We have discussed the symptoms which are most concerning (e.g., bloody stool, fever, changing or worsening pain, vomiting) that necessitate immediate return. - Vital Signs Vital signs: Temp Pulse Resp BP Pulse Ox 97.6 F 125 H 16 123/92 H 98 03/19/18 19:35 03/19/18 19:35 03/19/18 19:35 03/19/18 19:35 03/19/18 19:35 - Laboratory Result Diagrams: 03/19/18 21:20 03/19/18 22:05 Laboratory results interpreted by me: 03/19/18 03/19/18 03/19/18 21:20 22:05 22:12 WBC 21.3 H Seg Neuts % (Manual) 82 H Abs Neuts (Manual) 17.5 H BUN 23 H Glucose 70 L AST 127 H Lipase 16.2 L Urine Protein 30 H Urine Ketones 80 H Ur Leukocyte Esterase TRACE H Discharge - Discharge Clinical Impression: Abdominal pain Qualifiers: Abdominal location: lower abdomen, unspecified Qualified Code(s): R10.30 - Lower abdominal pain, unspecified Condition: Stable Disposition: HOME, SELF-CARE Additional Instructions: Please follow-up with care instructions provided to you
[2018-03-19 21:32] LABS: HEMATOCRIT 44.2 % (36.0-47.0); HEMOGLOBIN 14.7 g/dL (12.0-15.5); MEAN CORPUSCULAR HEMOGLOBIN 28.8 pg (27.0-33.4); MEAN CORPUSCULAR HGB CONC 33.2 g/dL (32.0-36.0); MEAN CORPUSCULAR VOLUME 87 fl (80-97); PLATELET COUNT 324 10^3/uL (150-450); RED BLOOD COUNT 5.11 10^6/uL (3.72-5.28); RED CELL DISTRIBUTION WIDTH 13.8 % (11.5-14.0); WHITE BLOOD COUNT 21.3 10^3/uL (4.0-10.5)
[2018-03-19 21:48] LABS: ABSOLUTE MONOCYTES # (MANUAL) 0.9 10^3/uL (0.1-1.4); ABSOLUTE NEUTROPHILS# (MANUAL) 17.5 10^3/uL (1.7-8.2); BASOPHILS % (MANUAL) 0 % (0-2); EOSINOPHILS % (MANUAL) 0 % (0-6); LYMPHOCYTES % (MANUAL) 14 % (13-45); MONOCYTES % (MANUAL) 4 % (3-13); SEGMENTED NEUTROPHILS % (MAN) 82 % (42-78); TOTAL CELLS COUNTED 100
[2018-03-19 21:51] LABS: PLATELET COMMENT ADEQUATE; RBC MORPHOLOGY COMMENT NORMO-CYTIC/CHROMIC; TOXIC VACUOLATION PRESENT
[2018-03-19 22:23] LABS: ALANINE AMINOTRANSFERASE 52 U/L (9-52); ALBUMIN 4.5 g/dL (3.5-5.0); ALKALINE PHOSPHATASE 76 U/L (38-126); ANION GAP 15 (5-19); ASPARTATE AMINO TRANSFERASE 127 U/L (14-36); BILIRUBIN,DIRECT 0.3 mg/dL (0.0-0.4); BILIRUBIN,TOTAL 1.3 mg/dL (0.2-1.3); BLOOD UREA NITROGEN 23 mg/dL (7-20); CALCIUM 9.5 mg/dL (8.4-10.2); CARBON DIOXIDE 27 mmol/L (22-30); CHLORIDE 98 mmol/L (98-107); GLUCOSE 70 mg/dL (75-110); LIPASE 16.2 U/L (23-300); POTASSIUM 3.6 mmol/L (3.6-5.0); SODIUM 140.1 mmol/L (137-145); TOTAL PROTEIN 7.6 g/dL (6.3-8.2)
[2018-03-19 22:39] LABS: APPEARANCE,URINE SLIGHTLY-CLOUDY; BILIRUBIN,URINE NEGATIVE (NEGATIVE); COLOR,URINE YELLOW; GLUCOSE, URINE NEGATIVE (NEGATIVE); KETONES,URINE 80 mg/dL (NEGATIVE); LEUKOCYTE ESTERASE,URINE TRACE (NEGATIVE); NITRITE,URINE NEGATIVE (NEGATIVE); PROTEIN,URINE 30 mg/dL (NEGATIVE); UROBILINOGEN,URINE NEGATIVE mg/dL (<2.0)
--- NOTE | 2018-03-19 23:43 | RADIOLOGY REPORT (SQ) ---
EXAM DESCRIPTION: CT ABDOMEN PELVIS WITH IV CONTRAST COMPLETED DATE/TME: 03/19/2018 22:19 CLINICAL HISTORY: 22 years Female, pelvic pain Comparison: None. Technique: IV contrast. Coronal and sagittal reformat. This exam was performed according to our departmental dose-optimization program, which includes automated exposure control, adjustment of the mA and/or kV according to patient size and/or use of iterative reconstruction technique.[facility]: Dose Right [facility]: CareDose [facility]: Dose Right [facility]: Teradose 4D [facility]: [employer] LIMITATIONS: None Findings: No ascites. Normal appendix. Inferior thorax, liver, cholecystectomy clips. Pancreas, spleen, adrenals, renal system, gastrointestinal tract, pelvic organs, lymphatics, vasculature, and musculoskeleton appear otherwise unremarkable. IMPRESSION: No acute findings.
[2018-03-20 00:13] VITALS: BP 123/83
== END 2018-03-20 00:12 | disposition home or self-care (01) ==
LOC: ER 19:20
DX: R10.30 Lower abdominal pain, unspecified (principal); R68.83 Chills (without fever); D72.829 Elevated white blood cell count, unspecified; Z90.49 Acquired absence of other specified parts of digestive tract
CPT/HCPCS: 99284; 96374; 96375; 36415; 83690; 85025; 81025; 80053; 81001; 74177; J1200; J1630

== ENCOUNTER 2018-05-05 09:46 | Emergency (ER) | payer MEDICAID ==
[2018-05-05 09:54] VITALS: BP 147/74
[2018-05-05] MEDS ORDERED: RINGERS SOLUTION,LACTATED 1,000 ML IV ONE (10:23)
[2018-05-05] MEDS ORDERED: ONDANSETRON HCL INJ/PF 4 MG/2 ML SDV IV ONE (10:24)
[2018-05-05] MEDS ORDERED: MORPHINE SULFATE 10 MG/ML INJ IV ONE (10:24)
--- NOTE | 2018-05-05 10:25 | ER Document Report ---
ED Medical Screen (RME) - General Chief Complaint: Abdominal Pain Stated Complaint: ABDOMINAL PAIN Time Seen by Provider: 05/05/18 10:23 Mode of Arrival: Ambulatory Information source: Patient Notes: This is a 22-year-old female 1 para 1, currently menstruating) who presents to the emergency room with 5 days of nausea, vomiting, chills. Patient states she has lower abdominal pain. She denies any medical history, on no medicines and has no allergies. She states she is not . She was brought in by EMS and given Phenergan and Toradol. In triage, she is constantly hopping because she states it helps the pain. TRAVEL OUTSIDE OF THE [place] IN LAST 30 DAYS: No - Related Data Allergies/Adverse Reactions: No Known Allergies Allergy (Verified 05/05/18 09:46) Past Medical History - Social History Chew tobacco use (# tins/day): No Frequency of alcohol use: None Drug Abuse: Marijuana Endocrine Medical History: Denies: Hx Diabetes Mellitus Type 1, Hx Diabetes Mellitus Type 2 Renal/ Medical History: Denies: Hx Peritoneal Dialysis Past Surgical History: Reports: Hx Cholecystectomy - Immunizations Hx Diphtheria, Pertussis, Tetanus Vaccination: - Unknown Physical Exam - Vital signs Vitals: Temp Pulse Resp BP Pulse Ox 98.7 F 90 18 147/74 H 95 05/05/18 09:52 05/05/18 09:52 05/05/18 09:52 05/05/18 09:52 05/05/18 09:52 Course - Vital Signs Vital signs: Temp Pulse Resp BP Pulse Ox 98.7 F 90 18 147/74 H 95 05/05/18 09:52 05/05/18 09:52 05/05/18 09:52 05/05/18 09:52 05/05/18 09:52
--- NOTE | 2018-05-05 12:18 | ER Document Report ---
ED GI/ - General Chief Complaint: Abdominal Pain Stated Complaint: ABDOMINAL PAIN Time Seen by Provider: 05/05/18 10:23 Mode of Arrival: Ambulatory Notes: Patient is complaining of abdominal pain that started Thursday. It has been constant, since Thursday. She has had this frequently for the past 3 years. Initially, she had her gallbladder removed but it did not show improvement in the frequency or severity of these pains. She says that her abdomen hurts all over and circles her hand over her entire abdomen. Says she is vomiting too numerous to count. Has not had any diarrhea. No fever. She started vaginal spotting on Thursday. Is on no control. Patient has been seen here previously for similar symptoms. She was here March 19 , of this year and underwent a workup which included lab work as well as a CT scan and was only found to have elevation of her white cell count (21,000) but no other abnormality in the workup. It was noted in her chart that patient seem to be having this pain for secondary gain and perhaps secondary to psychiatric problems. The patient does have a diagnosis of bipolar disorder with depression. Patient chart says she has had her appendix removed, but when asked about it, she adamantly says she has not had her appendix taken out. In addition, patient had a CT scan on March 19, 2018, which showed a normal appendix. TRAVEL OUTSIDE OF THE [place] IN LAST 30 DAYS: No - Related Data Allergies/Adverse Reactions: No Known Allergies Allergy (Verified 05/05/18 09:46) Past Medical History - General Information source: Patient - Social History Smoking Status: Current Every Day Smoker Chew tobacco use (# tins/day): No Frequency of alcohol use: None Drug Abuse: Marijuana Family History: Reviewed & Not Pertinent Patient has suicidal ideation: No Patient has homicidal ideation: No Endocrine Medical History: Denies: Hx Diabetes Mellitus Type 1, Hx Diabetes Mellitus Type 2 Psychiatric Medical History: Reports: Hx Bipolar Disorder, Hx Depression Past Surgical History: Reports: Hx Cholecystectomy. Denies: Hx Appendectomy - Immunizations Hx Diphtheria, Pertussis, Tetanus Vaccination: - Unknown Review of Systems - Review of Systems Notes: REVIEW OF SYSTEMS: CONSTITUTIONAL : Denies fever. Anxious and fidgety. EENT: Denies eye, ear, nose or mouth or throat pain or other symptoms. CARDIOVASCULAR: Denies chest pain. RESPIRATORY: Denies cough, chest congestion, or shortness of breath. GASTROINTESTINAL: See HPI. GENITOURINARY: Denies difficulty or painful urinating, urinary frequency, blood in urine. MUSCULOSKELETAL: Denies back or neck pain. Denies joint pain or swelling. SKIN: Denies rash or skin lesions. NEUROLOGICAL: Denies LOC or altered mental status. Denies headache. Denies sensory loss or motor deficits. ALL OTHER SYSTEMS REVIEWED AND NEGATIVE. Physical Exam - Vital signs Vitals: Temp Pulse Resp BP Pulse Ox 98.7 F 90 18 147/74 H 95 05/05/18 09:52 05/05/18 09:52 05/05/18 09:52 05/05/18 09:52 05/05/18 09:52 - Notes Notes: PHYSICAL EXAMINATION: GENERAL: Appears to be in pain. Moving about on the stretcher. Some moaning.. HEAD: Atraumatic, normocephalic. NECK: Normal range of motion, supple. LUNGS: Breath sounds clear and equal bilaterally. HEART: Regular rate and rhythm without murmurs. ABDOMEN: Diffusely tender throughout the entire abdomen without any specific point tenderness anywhere. No guarding and no rebound present. No bruits heard. BACK: No tenderness throughout entire back. EXTREMITIES: Normal range of motion without pain. NEUROLOGICAL: Normal speech, normal gait. Normal sensory, motor, and reflex exams. Awake, alert, and oriented x3. Cranial nerves normal. PSYCH: Normal mood, normal affect. SKIN: Warm, dry, no rashes. Course - Re-evaluation Re-evalutation: 05/05/18 12:37 IV fluids and pain medication were ordered. Patient will have another CT scan of her abdomen done. 05/05/18 18:13 Patient's entire workup is almost essentially normal. Her white count is 11, 000. No significant shift. Chemistries are all essentially normal. Urinalysis has 80 ketones but otherwise is unremarkable. Patient's CT scan of the abdomen was read by radiology as showing no abnormality. This is the same results that the patient had on a CT scan of her abdomen in the early part of March. Patient is tearrfully asking for pain medications and I do not think there is indications for her to have narcotic pain medications and told the patient such. I told her that I would give her Phenergan and she says she already has Phenergan at home and it does not do anything. I also suggested I could give her a few Ultram to take and she did not want that either. As I was writing up the patient's chart for discharge, I was notified by the nurse that the patient had decided to leave without any further treatment. 05/05/18 18:16 I did asked the patient if she smoked marijuana because it can cause a syndrome of abdominal pain and vomiting like she is having, which called cyclic vomiting. She says she only smokes marijuana when she gets like this to try to relieve her symptoms. - Vital Signs Vital signs: Temp Pulse Resp BP Pulse Ox 98.7 F 90 18 147/74 H 95 05/05/18 09:52 05/05/18 09:52 05/05/18 09:52 05/05/18 09:52 05/05/18 09:52 - Laboratory Result Diagrams: 05/05/18 15:40 05/05/18 15:40 Laboratory results interpreted by me: 05/05/18 05/05/18 05/05/18 14:51 15:40 15:40 WBC 11.3 H RDW 14.2 H Sodium 135.9 L Urine Protein 100 H Urine Ketones 80 H Urine Blood MODERATE H Urine Urobilinogen 4.0 H Discharge - Discharge Clinical Impression: Abdominal pain, Vomiting, Dehydration Condition: Stable Disposition: HOME, SELF-CARE Additional Instructions: ABDOMINAL PAIN: There are many causes of abdominal pain. Pain can mean a serious problem requiring surgery (such as appendicitis). It can also be an innocent problem that goes away on its own (such as a viral infection). Often, time must pass to determine the cause of pain. The physician does not feel that hospitalization is necessary, at present. Things may change within the next 24 hours. Call the doctor or come back for re- examination if any problems occur, such as: (1) Pain that becomes more severe, steady, or becomes concentrated in one specific area. Also, pain that is more severe with movement or coughing. (2) Vomiting that persists or becomes more frequent. (3) Blood in the vomitus, urine, or bowel movements. Blood in the stool may have a tarry or black appearance. (4) Shaking chills or fever greater than 100 degrees F. (5) The abdomen becomes more distended or swollen. (6) Bowel movements cease. (7) Failure to improve as expected. NORMAL EXAM AND WORKUP: At this time, your examination and workup show no significant abnormality. No significant abnormal physical findings are noted. All laboratory, EKG, and imaging (x-ray, CT scans, ultrasound) studies that were ordered show no significant abnormality. Although your examination and all studies that were ordered showed no significant abnormal finding, there are no examinations and no studies that are 100% accurate. There is always the possibility that some abnormality could exist and not be detected with physical examination or within the limits and capabilities of laboratory and other studies. You should return or follow up as you were instructed on your visit today for further evaluation if your symptoms do not resolve. TORADOL INJECTION: You have been given an injection of ketorolac tromethamine (Toradol). This is an excellent, safe drug for pain control. It also has potent antiinflammatory action. You should have significant pain relief within about one hour. Toradol is not addicting and is non-sedating. It does not interfere with driving or work. Call or return if you develop itching, hives, shortness of breath, or rash. PAIN MEDICATION INJECTION: You have received an injection of a pain medication. You should experience significant pain relief within 45 minutes. This drug is a narcotic - - it will impair your judgement, slow your reaction time and make you sleepy ( as well as relieve your pain). Narcotics also can cause nausea. You should not drive, work with machinery, or perform any task requiring mental alertness until all effects of the medication are gone -- six to eight hours. Do not take any alcohol, or sedatives, and do not take any other medication without checking with your physician. ANTINAUSEA MEDICATION: You have been given a medication to suppress nausea and vomiting. This type of medication can be given as a shot, pill, or suppository. It will usually last for many hours. Pills and shots usually last six to eight hours, suppositories last about 12 hours. For the typical illness, only one or two doses of the medication may be necessary. Mild lightheadedness may occur. This type of medicine can cause drowsiness. Do not drive or operate dangerous machinery while under its influence. Do not mix with alcohol. See your doctor at once if you have muscle spasms or tightness, or uncontrollable motions (particularly of the neck, mouth, or jaw). Persistent vomiting or severe lightheadedness should also be evaluated by the physician. Ultram Ultram is an excellent drug for pain relief. It is not a narcotic, but it works in a similar way. Ultram can take up to two hours for full effect. Although not addicting, Ultram is best avoided in patients with a history of drug abuse. Ultram should not be used with alcohol, sleeping pills, or narcotics. If you're prone to seizures, Ultram can make you more likely to have a seizure. Ultram can be hazardous when combined with MAO-inhibitor antidepressants (such as Nardil or Parnate). Be sure your doctor is aware of all medicines you are taking. Persons with severe liver or kidney disease should increase the time between doses of Ultram. Discuss this with your doctor if you're uncertain. Side effects of Ultram can include dizziness, nausea, constipation, sleepiness, and itching. (These side effects are also seen with narcotic pain medicines.) Please call your doctor if you have other disturbing effects. FOLLOW-UP CARE: If you have been referred to a physician for follow-up care, call the physician s office for an appointment as you were instructed or within the next two days. If you experience worsening or a significant change in your symptoms, notify the physician immediately or return to the Emergency Department at any time for re-evaluation.
[2018-05-05] MEDS ORDERED: KETOROLAC TROMETHAMINE INJ/PF 30 MG/1 ML SDV IV ONE (12:38)
[2018-05-05 15:37] LABS: APPEARANCE,URINE SLIGHTLY-CLOUDY; BILIRUBIN,URINE NEGATIVE (NEGATIVE); COLOR,URINE YELLOW; GLUCOSE, URINE NEGATIVE (NEGATIVE); KETONES,URINE 80 mg/dL (NEGATIVE); LEUKOCYTE ESTERASE,URINE NEGATIVE (NEGATIVE); NITRITE,URINE NEGATIVE (NEGATIVE); PROTEIN,URINE 100 mg/dL (NEGATIVE); URINE SPECIFIC GRAVITY 1.034
[2018-05-05 15:52] LABS: ABSOLUTE BASOPHILS # (AUTO) 0.1 10^3/uL (0.0-0.2); ABSOLUTE EOSINOPHILS # (AUTO) 0.1 10^3/uL (0.0-0.6); ABSOLUTE LYMPHOCYTES (AUTO) 3.2 10^3/uL (0.5-4.7); ABSOLUTE MONOCYTES (AUTO) 1.2 10^3/uL (0.1-1.4); ABSOLUTE NEUT (AUTO) 6.7 10^3/uL (1.7-8.2); EOSINOPHILS % (AUTO) 0.7 % (0-6); HEMATOCRIT 42.5 % (36.0-47.0); HEMOGLOBIN 13.8 g/dL (12.0-15.5); LYMPHOCYTES % (AUTO) 28.3 % (13-45); MEAN CORPUSCULAR HEMOGLOBIN 28.4 pg (27.0-33.4); MEAN CORPUSCULAR HGB CONC 32.5 g/dL (32.0-36.0); MEAN CORPUSCULAR VOLUME 88 fl (80-97); MONOCYTES % (AUTO) 10.6 % (3-13); PLATELET COUNT 270 10^3/uL (150-450); RED BLOOD COUNT 4.85 10^6/uL (3.72-5.28); RED CELL DISTRIBUTION WIDTH 14.2 % (11.5-14.0); SEGMENTED NEUTROPHILS % (AUTO) 59.4 % (42-78); TOTAL CELLS COUNTED % (AUTO) 100 %; WHITE BLOOD COUNT 11.3 10^3/uL (4.0-10.5)
[2018-05-05 16:09] LABS: ALANINE AMINOTRANSFERASE 33 U/L (9-52); ALBUMIN 3.8 g/dL (3.5-5.0); ALKALINE PHOSPHATASE 57 U/L (38-126); ANION GAP 14 (5-19); ASPARTATE AMINO TRANSFERASE 30 U/L (14-36); BILIRUBIN,DIRECT 0.4 mg/dL (0.0-0.4); BILIRUBIN,TOTAL 1.1 mg/dL (0.2-1.3); BLOOD UREA NITROGEN 17 mg/dL (7-20); CARBON DIOXIDE 23 mmol/L (22-30); CHLORIDE 99 mmol/L (98-107); GLUCOSE 84 mg/dL (75-110); LIPASE 53.4 U/L (23-300); POTASSIUM 3.7 mmol/L (3.6-5.0); SODIUM 135.9 mmol/L (137-145); TOTAL PROTEIN 6.8 g/dL (6.3-8.2)
[2018-05-05] MEDS ORDERED: NORMAL SALINE 1000 ML 1,000 ML IV ONE (16:21)
--- NOTE | 2018-05-05 16:31 | RADIOLOGY REPORT (SQ) ---
EXAM DESCRIPTION: CT ABD/PELVIS WITH IV ORAL COMPLETED DATE/TIME: 05/05/2018 4:21 pm REASON FOR STUDY: Recurrent generalized abdominal pain COMPARISON: 03/19/2018 TECHNIQUE: CT scan of the abdomen and pelvis performed with intravenous and oral contrast using maryam stas scanning technique with dynamic intravenous contrast injection. Images reviewed with lung, soft t issue, and bone windows. Reconstructed coronal and sagittal MPR images reviewed. Delayed images for e valuation of the urinary system also acquired. All images stored on PACS. All CT scanners at this facility use dose modulation, iterative reconstruction, and/or weight based d osing when appropriate to reduce radiation dose to as low as reasonably achievable (ALARA). [facility]: Dose Right [facility]: CareDose [facility]: Dose Right [facility]: Teradose 4D [facility]: Montnets CONTRAST TYPE AND DOSE: contrast/concentration: Isovue 350.00 mg/ml; Total Contrast Delivered: 80.0 ml; Total Saline Delivered: 48.0 ml RENAL FUNCTION: GFR > 60. RADIATION DOSE: CT Rad equipment meets quality standard of care and radiation dose reduction techniq ues were employed. CTDIvol: NaN - NaN mGy. DLP: 0 mGy-cm.. LIMITATIONS: None. FINDINGS: LOWER CHEST: No significant findings. No nodules or infiltrates. LIVER: Normal size. No masses. No dilated ducts. SPLEEN: Normal size. No focal lesions. PANCREAS: No masses. No significant calcifications. No adjacent inflammation or peripancreatic fluid collections. Pancreatic duct not dilated. GALLBLADDER: Surgically absent. ADRENAL GLANDS: No significant masses or asymmetry. RIGHT KIDNEY AND URETER: No solid masses. No significant calcification. No hydronephrosis or hydroure ter. LEFT KIDNEY AND URETER: No solid masses. No significant calcification. No hydronephrosis or hydrouret er. AORTA AND VESSELS: No aneurysm. No dissection. Renal arteries, SMA, celiac without stenosis. RETROPERITONEUM: No retroperitoneal adenopathy, hemorrhage or masses. BOWEL AND PERITONEAL CAVITY: No obstruction. No visualized masses. No free fluid. No inflammatory ch anges or thickening of bowel wall. APPENDIX: Normal. PELVIS: No significant masses. Normal bladder. No free fluid. ABDOMINAL WALL: No masses. No hernias. BONES: No significant or acute findings. OTHER: No other significant finding. IMPRESSION: NO SIGNIFICANT OR ACUTE FINDINGS IN THE ABDOMEN OR PELVIS. TECHNICAL DOCUMENTATION: JOB ID: [id number] Quality ID # [id number]: Final reports with documentation of one or more dose reduction techniques (e.g., Au tomated exposure control, adjustment of the mA and/or kV according to patient size, use of iterative reconstruction technique) 2010 [employer] All Rights Reserved Reading location - IP/workstation name: [email or web address]
[2018-05-05] MEDS ORDERED: TRAMADOL HCL 50 MG TABLET PO ONE (18:03)
== END 2018-05-05 18:31 | disposition home or self-care (01) ==
LOC: ER 09:46
DX: R10.9 Unspecified abdominal pain (principal); R11.10 Vomiting, unspecified; E86.0 Dehydration; F17.200 Nicotine dependence, unspecified, uncomplicated; Z90.49 Acquired absence of other specified parts of digestive tract
CPT/HCPCS: 99284; 96361; 96374; 96375; 36415; 84702; 83690; 85025; 81025; 80053; 81001; 74177; J1885; J2270; J2405; J7030; J7120

== ENCOUNTER 2018-07-09 09:02 | Emergency (ER) | payer MEDICAID ==
[2018-07-09] MEDS ORDERED: NORMAL SALINE 1000 ML 1,000 ML IV ONE ×2 (09:31→10:24)
[2018-07-09] MEDS ORDERED: DIPHENHYDRAMINE HCL 50 MG/ML VIAL IV ONE (09:33)
[2018-07-09] MEDS ORDERED: METOCLOPRAMIDE HCL INJ/PF 10 MG/2 ML SDV IV ONE ×2 (09:35→12:18)
[2018-07-09 09:45] LABS: HEMATOCRIT 42.4 % (36.0-47.0); HEMOGLOBIN 14.1 g/dL (12.0-15.5); MEAN CORPUSCULAR HEMOGLOBIN 29.2 pg (27.0-33.4); MEAN CORPUSCULAR HGB CONC 33.2 g/dL (32.0-36.0); MEAN CORPUSCULAR VOLUME 88 fl (80-97); PLATELET COUNT 360 10^3/uL (150-450); RED BLOOD COUNT 4.83 10^6/uL (3.72-5.28); RED CELL DISTRIBUTION WIDTH 14.3 % (11.5-14.0); WHITE BLOOD COUNT 20.2 10^3/uL (4.0-10.5)
--- NOTE | 2018-07-09 09:45 | ER Document Report ---
ED GI/ - General Chief Complaint: Abdominal Pain Stated Complaint: ABDOMINAL PAIN Time Seen by Provider: 07/09/18 09:20 Mode of Arrival: Ambulatory Information source: Patient Notes: Patient is a presently 8 weeks and complains of abdominal pain with nausea and vomiting. Patient denies any diarrhea. Patient states that she has had similar episodes of abdominal pain with nausea and vomiting several times each year. Patient states that she has not followed up with a primary doctor and nobody can diagnose her with anything. Patient states that her mental health provider states that her symptoms are likely due to her bipolar depression. Patient does report increased stress that she feels is responsible for her abdominal pain and vomiting symptoms. Patient does report marijuana use. Patient states that she has had an ultrasound 2 weeks ago which did find an intrauterine . Patient denies any vaginal bleeding or discharge. TRAVEL OUTSIDE OF THE [place] IN LAST 30 DAYS: No - HPI Patient complains to provider of: Abdominal pain, , Vomiting. No: Diarrhea Onset: Other - 3 days Timing/Duration: Persistent Quality of pain: Cramping Pain Level: 3 Context: Location: Epigastric Vaginal bleeding (Compared to normal period): None Menstrual period history: Sexual history: Active Associated symptoms: Nausea, Vomiting. denies: Chest pain, Diarrhea, Dysuria, Fever, Loss of appetite Exacerbated by: Denies Relieved by: Denies Similar symptoms previously: Yes Recently seen / treated by doctor: No - Related Data Allergies/Adverse Reactions: No Known Allergies Allergy (Verified 07/09/18 09:07) Past Medical History - General Information source: Patient - Social History Smoking Status: Never Smoker Chew tobacco use (# tins/day): No Frequency of alcohol use: None Drug Abuse: Marijuana Occupation: None Lives with: Family Family History: Reviewed & Not Pertinent Patient has suicidal ideation: No Patient has homicidal ideation: No Endocrine Medical History: Denies: Hx Diabetes Mellitus Type 1, Hx Diabetes Mellitus Type 2 Renal/ Medical History: Denies: Hx Peritoneal Dialysis GI Medical History: Reports: Other - Abdominal pain, vomiting symptoms without any formal diagnosis Psychiatric Medical History: Reports: Hx Bipolar Disorder, Hx Depression Past Surgical History: Reports: Hx Cholecystectomy. Denies: Hx Appendectomy - Immunizations Hx Diphtheria, Pertussis, Tetanus Vaccination: - Unknown Review of Systems - Review of Systems Constitutional: No symptoms reported. denies: Fever, Recent illness EENT: No symptoms reported Cardiovascular: No symptoms reported. denies: Chest pain Respiratory: No symptoms reported. denies: Cough, Short of breath Gastrointestinal: Abdominal pain, Nausea, Vomiting. denies: Diarrhea, Poor appetite Genitourinary: No symptoms reported. denies: Dysuria, Flank pain Female Genitourinary: . denies: Vaginal discharge, Vaginal bleeding Musculoskeletal: No symptoms reported. denies: Back pain Skin: No symptoms reported Hematologic/Lymphatic: No symptoms reported Neurological/Psychological: No symptoms reported Physical Exam - Vital signs Vitals: Temp Pulse Resp BP Pulse Ox 98.6 F 115 H 22 H 131/94 H 99 07/09/18 09:07 07/09/18 09:07 07/09/18 09:07 07/09/18 09:07 07/09/18 09:07 - General General appearance: Alert, Anxious In distress: Mild - HEENT Head: Normocephalic, Atraumatic Eyes: Normal Nasal: Normal Mouth/Lips: Normal Mucous membranes: Normal Neck: Normal, Supple - Respiratory Respiratory status: No respiratory distress Chest status: Nontender Breath sounds: Normal. No: Rales, Rhonchi, Stridor, Wheezing Chest palpation: Normal - Cardiovascular Rhythm: Tachycardia Heart sounds: S1 appreciated, S2 appreciated Murmur: No - Abdominal Inspection: Normal Distension: No distension Bowel sounds: Normal Tenderness: Tender - tender to epigastric area. No: Guarding Organomegaly: No organomegaly - Back Back: Normal, Nontender. No: CVA tenderness - Extremities General upper extremity: Normal inspection, Normal ROM General lower extremity: Normal inspection, Normal ROM - Neurological Neuro grossly intact: Yes Cognition: Normal Nicola Coma Scale Eye Opening: Spontaneous Nicola Coma Scale Verbal: Oriented Raymond Coma Scale Motor: Obeys Commands Nicola Coma Scale Total: 15 - Psychological Associated symptoms: Restlessness - Skin Skin Temperature: Warm Skin Moisture: Dry Skin Color: Normal Course - Re-evaluation Re-evalutation: 07/09/18 12:18 Patient resting with eyes closed, patient is requesting food to eat. Patient states that she is concerned that she may still get sick. Additional nausea medication ordered. IV fluids are infusing at this time, patient has been a difficult stick but has a patent IV at this time. 07/09/18 12:50 Patient with additional vomiting, additional medications ordered at this time. Patient requesting pain medication, patient is at this time, Tylenol suppository will be ordered. 07/09/18 15:01 Patient sleeping, arouses easily to voice. Patient states nausea is improved at this time. Patient states that GI cocktail improved abdominal pain symptoms allowing her to sleep. Labs states that they are waiting for her hCG test and then they will be able to result her chemistry panel. 07/09/18 15:24 Patient without any vomiting at this time. Patient tolerating oral fluids without emesis. Patient states she complains of increased stress at home because she lives with her mother who is an alcoholic and her 1-year-old child. Patient states that her significant other is wanting her to get an but her mother does not want her to get an . Patient complains of history of bipolar depression and states that she has had increased stress due to the decision about whether or not to keep her . Patient states that she does not want to go home and that there is not suitable food for her at home. 07/09/18 15:43 Patient has a history of frequent episodes of abdominal pain with vomiting symptoms states happens several times each year. Patient states she is seeing a primary doctor in the past for this issue. Patient states that her mental health provider thinks that her abdominal pain and vomiting symptoms are related to stress. Patient is insistent that her symptoms cannot possibly be related to marijuana use. Patient states that when she found out she was with her last she stopped smoking marijuana at 3 months gestation. Patient advised that standard urine drug screen testing is performed at delivery and that she did test positive for marijuana on that urine drug screen when she delivered and therefore had been using marijuana throughout the . Patient does have some leukocytosis although this is similar in presentation when that she has had vomiting during in the past. Provider has not witnessed any emesis during patient's ER stay. RN states that she did note a small amount of emesis but is uncertain if patient caused herself to gag and spit up on the floor. Patient has predominantly slept during her ER stay while we were awaiting her chemistry panel to be resulted. Patient states that she did have an ultrasound by her LOCAL DRIVER provider 2 weeks ago which confirmed an intrauterine . Patient without any lower abdominal tenderness during her stay. Patient only with epigastric abdominal tenderness. Patient has had a cholecystectomy in the past and ultrasound has already confirmed her on an outpatient basis therefore the decision was made not to repeat any ultrasound imaging at this time. Given her status, CT imaging was deferred. Review of patient' s previous ER visits demonstrates that her symptoms today are consistent with her numerous previous presentations to the ER with vomiting and abdominal pain symptoms. Patient has had 2 CT scans in the past to evaluate her pain and vomiting symptoms, CT scans did not have any acute findings in the past. Patient states that she feels that her pain and vomiting symptoms are attributed to her increased stress and her history of mental illness. Provider to bedside to discuss plan of care with patient. When patient was advised that she would be discharged home, patient became increasingly agitated stating that she cannot go home and take care of her 1-year-old child when she has this much pain. Patient states that she needs to be at her full potential so that she can care for her child appropriately. Patient states that whenever she gets the motivation to change his diaper that he is a medicine that she ends up having to give him a bath. Patient states that her mother is out of the house until late at night when it is time for her mother to go to sleep. Patient states that her child's father does not live with them and does not like to help care for his child. Patient is insistent that she will just be right back here because she cannot take care of her child when she feels like this. Nurse to contact systems planner to assess for resources. 07/09/18 15:57 - Vital Signs Vital signs: Temp Pulse Resp BP Pulse Ox 98.9 F 70 18 118/63 100 07/09/18 13:15 07/09/18 13:15 07/09/18 13:15 07/09/18 13:15 07/09/18 13:15 - Laboratory Result Diagrams: 07/09/18 09:20 07/09/18 13:50 Laboratory results interpreted by me: 07/09/18 07/09/18 07/09/18 09:20 09:52 11:25 WBC 20.2 H RDW 14.3 H Seg Neuts % (Manual) 80 H Lymphocytes % (Manual) 12 L Abs Neuts (Manual) 16.2 H Abs Basophils (Manual) 0.4 H Carbon Dioxide Glucose Total Bilirubin Lipase 14.7 L Beta HCG, Quant Urine Protein 30 H Urine Ketones 80 H Urine Urobilinogen 2.0 H Ur Leukocyte Esterase SMALL H 07/09/18 13:50 WBC RDW Seg Neuts % (Manual) Lymphocytes % (Manual) Abs Neuts (Manual) Abs Basophils (Manual) Carbon Dioxide 19 L Glucose 71 L Total Bilirubin 1.4 H Lipase Beta HCG, Quant 939449.00 H Urine Protein Urine Ketones Urine Urobilinogen Ur Leukocyte Esterase Discharge - Discharge Clinical Impression: Vomiting during , Marijuana abuse Condition: Stable Disposition: HOME, SELF-CARE Instructions: Abdominal Pain ([facility]), Antinausea Medication ([facility]), Hyperemesis Gravidarum ([facility]), Intravenous (IV) Fluids ([facility]) Additional Instructions: Return immediately for any new or worsening symptoms It is important that you avoid any marijuana use in the future as it can contribute to abdominal pain and vomiting symptoms. Follow-up with a GI specialist for further evaluation Follow-up with an LOCAL DRIVER for recheck Follow-up with your mental health provider Prescriptions: Metoclopramide HCl [Reglan 10 mg Tablet] 10 mg PO Q8 PRN #15 PRN Reason: Referrals: KAILYN THOMPSON MD [ACTIVE STAFF] - Follow up as needed [facility] [Provider Group] - 07/12/18
[2018-07-09 10:13] LABS: APPEARANCE,URINE SLIGHTLY-CLOUDY; BILIRUBIN,URINE NEGATIVE (NEGATIVE); COLOR,URINE YELLOW; GLUCOSE, URINE NEGATIVE (NEGATIVE); KETONES,URINE 80 mg/dL (NEGATIVE); LEUKOCYTE ESTERASE,URINE SMALL (NEGATIVE); NITRITE,URINE NEGATIVE (NEGATIVE); PROTEIN,URINE 30 mg/dL (NEGATIVE); URINE SPECIFIC GRAVITY 1.033
[2018-07-09 10:14] LABS: ABSOLUTE LYMPHOCYTES# (MANUAL) 2.4 10^3/uL (0.5-4.7); ABSOLUTE MONOCYTES # (MANUAL) 1.2 10^3/uL (0.1-1.4); ABSOLUTE NEUTROPHILS# (MANUAL) 16.2 10^3/uL (1.7-8.2); BASOPHILS % (MANUAL) 2 % (0-2); EOSINOPHILS % (MANUAL) 0 % (0-6); HYPOCHROMASIA SLIGHT; LYMPHOCYTES % (MANUAL) 12 % (13-45); MONOCYTES % (MANUAL) 6 % (3-13); PLATELET COMMENT ADEQUATE; POLYCHROMASIA SLIGHT; SEGMENTED NEUTROPHILS % (MAN) 80 % (42-78); TOTAL CELLS COUNTED 100; TOXIC GRANULATION 1+; TOXIC VACUOLATION PRESENT
[2018-07-09 10:35] LABS: URINE AMPHETAMINES SCREEN NEGATIVE; URINE BARBITURATES SCREEN NEGATIVE; URINE BENZODIAZEPINES SCREEN NEGATIVE; URINE COCAINE SCREEN NEGATIVE; URINE MARIJUANA (THC) SCREEN UNCONFIRMED POSITIVE; URINE METHADONE SCREEN NEGATIVE; URINE PHENCYCLIDINE SCREEN NEGATIVE
[2018-07-09] MEDS ORDERED: MAG HYDROX/AL HYDROX/SIMETH SUSP 30 ML UDCUP PO ONE (12:18)
[2018-07-09] MEDS ORDERED: LIDOCAINE 2% VISCOUS SOLN 20 ML UDCUP PO ONE (12:18)
[2018-07-09] MEDS ORDERED: ACETAMINOPHEN 650 MG SUPP.RECT PR ONE (12:49)
[2018-07-09] MEDS ORDERED: ONDANSETRON HCL INJ/PF 4 MG/2 ML SDV IV ONE (12:50)
[2018-07-09 13:16] VITALS: BP 118/63
[2018-07-09 14:38] LABS: ALANINE AMINOTRANSFERASE 18 U/L (9-52); ALBUMIN 3.8 g/dL (3.5-5.0); ALKALINE PHOSPHATASE 57 U/L (38-126); ANION GAP 17 (5-19); ASPARTATE AMINO TRANSFERASE 24 U/L (14-36); BILIRUBIN,DIRECT 0.4 mg/dL (0.0-0.4); BILIRUBIN,TOTAL 1.4 mg/dL (0.2-1.3); BLOOD UREA NITROGEN 11 mg/dL (7-20); CARBON DIOXIDE 19 mmol/L (22-30); CHLORIDE 102 mmol/L (98-107); GLUCOSE 71 mg/dL (75-110); POTASSIUM 3.8 mmol/L (3.6-5.0); SODIUM 137.6 mmol/L (137-145); TOTAL PROTEIN 6.6 g/dL (6.3-8.2)
[2018-07-09] MEDS ORDERED: DEXTROSE 5%-NORMAL SALINE 1,000 ML IV ONE (15:41)
== END 2018-07-09 17:15 | disposition home or self-care (01) ==
LOC: ER 09:02
DX: O21.9 Vomiting of pregnancy, unspecified (principal); F12.10 Cannabis abuse, uncomplicated; R10.9 Unspecified abdominal pain; Z3A.08 8 weeks gestation of pregnancy
CPT/HCPCS: 96376; 99284; 96361; 96374; 96375; 36415; 87086; 84702; 83690; 85025; 80053; 81001; 80307; J3490 ×3; J1200; J2765; J2405; J7030

== ENCOUNTER 2018-08-05 00:27 | Emergency (ER) | payer MEDICAID ==
[2018-08-05] MEDS ORDERED: FENTANYL CITRATE INJ/PF 100 MCG/2 ML AMPUL IV ONE (00:39)
[2018-08-05 00:58] LABS: ABSOLUTE BASOPHILS # (AUTO) 0.1 10^3/uL (0.0-0.2); ABSOLUTE EOSINOPHILS # (AUTO) 0.2 10^3/uL (0.0-0.6); ABSOLUTE LYMPHOCYTES (AUTO) 2.4 10^3/uL (0.5-4.7); ABSOLUTE MONOCYTES (AUTO) 0.8 10^3/uL (0.1-1.4); ABSOLUTE NEUT (AUTO) 10.3 10^3/uL (1.7-8.2); BASOPHILS % (AUTO) 0.6 % (0-2); EOSINOPHILS % (AUTO) 1.4 % (0-6); HEMATOCRIT 39.2 % (36.0-47.0); HEMOGLOBIN 13.3 g/dL (12.0-15.5); LYMPHOCYTES % (AUTO) 17.1 % (13-45); MEAN CORPUSCULAR HEMOGLOBIN 29.1 pg (27.0-33.4); MEAN CORPUSCULAR HGB CONC 33.9 g/dL (32.0-36.0); MEAN CORPUSCULAR VOLUME 86 fl (80-97); MONOCYTES % (AUTO) 5.8 % (3-13); PLATELET COUNT 322 10^3/uL (150-450); RED BLOOD COUNT 4.56 10^6/uL (3.72-5.28); RED CELL DISTRIBUTION WIDTH 14.1 % (11.5-14.0); SEGMENTED NEUTROPHILS % (AUTO) 75.1 % (42-78); TOTAL CELLS COUNTED % (AUTO) 100 %; WHITE BLOOD COUNT 13.8 10^3/uL (4.0-10.5)
[2018-08-05 01:09] LABS: BLOOD UREA NITROGEN 11 mg/dL (7-20); CALCIUM 9.7 mg/dL (8.4-10.2); GLUCOSE 81 mg/dL (75-110)
[2018-08-05 01:10] LABS: ALANINE AMINOTRANSFERASE 11 U/L (9-52); ALBUMIN 3.9 g/dL (3.5-5.0); ALKALINE PHOSPHATASE 65 U/L (38-126); ANION GAP 17 (5-19); ASPARTATE AMINO TRANSFERASE 24 U/L (14-36); BILIRUBIN,DIRECT 0.3 mg/dL (0.0-0.4); BILIRUBIN,TOTAL 1.3 mg/dL (0.2-1.3); CARBON DIOXIDE 20 mmol/L (22-30); CHLORIDE 100 mmol/L (98-107); POTASSIUM 4.1 mmol/L (3.6-5.0); SODIUM 136.6 mmol/L (137-145)
[2018-08-05] MEDS ORDERED: MORPHINE SULFATE 10 MG/ML INJ IV ONE (01:10)
[2018-08-05] MEDS ORDERED: ONDANSETRON HCL INJ/PF 4 MG/2 ML SDV IV ONE (01:22)
[2018-08-05] MEDS ORDERED: NORMAL SALINE 1000 ML 1,000 ML IV ONE ×2 (01:39→03:53)
--- NOTE | 2018-08-05 02:19 | RADIOLOGY REPORT (SQ) ---
CLINICAL HISTORY: flank pain COMPARISON: None. 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 Left kidney measures 10.9 cm in greatest dimension without hydronephrosis. Urinary bladder is normally distended. Both ureteral jets are seen. IMPRESSION: No hydronephrosis.
[2018-08-05 02:54] LABS: APPEARANCE,URINE SLIGHTLY-CLOUDY; BILIRUBIN,URINE NEGATIVE (NEGATIVE); COLOR,URINE YELLOW; GLUCOSE, URINE NEGATIVE (NEGATIVE); KETONES,URINE 80 mg/dL (NEGATIVE); LEUKOCYTE ESTERASE,URINE TRACE (NEGATIVE); NITRITE,URINE NEGATIVE (NEGATIVE); PROTEIN,URINE 30 mg/dL (NEGATIVE); URINE SPECIFIC GRAVITY 1.028
--- NOTE | 2018-08-05 03:29 | RADIOLOGY REPORT (SQ) ---
EXAM DESCRIPTION: US LESS THAN 14 WEEKS COMPLETED DATE/TME: 08/05/2018 01:12 CLINICAL HISTORY: 22 years Female, severe abdominal pain Comparison:05/16/2017 TECHNIQUE: Transvaginal. LIMITATIONS: None. FINDINGS: Living intrauterine fetus measures 12w1d with RANDA of 02/16/2019. Cardiac activity is 153-bpm. [place]-rump length is 5.5-cm. Nonvisualized right ovary, 3.3-cm left ovary, 3.1-cm cervical length, and no free fluid. IMPRESSION: Living 1st trimester intrauterine gestation. No evidence of complication.
--- NOTE | 2018-08-05 04:00 | ER Document Report ---
ED General - General Chief Complaint: Flank Pain Stated Complaint: STOMACH PAIN Time Seen by Provider: 08/05/18 00:38 Notes: She is a 22-year-old female who presents to the emergency department with abdominal pain. She is crying and states she feels like she is in the worst pain ever. She said she started to have some the past day, but tonight her pain became so severe woke up from her sleep. She rates her pain 5 out of 5. The pain is in her left flank area. She has not tried anything to help her pain get better. She is a . Denies a fever. Denies any urinary symptoms. She states she is currently . TRAVEL OUTSIDE OF THE [place] IN LAST 30 DAYS: No - Related Data Allergies/Adverse Reactions: No Known Allergies Allergy (Verified 07/09/18 09:07) Past Medical History - Social History Smoking Status: Never Smoker Chew tobacco use (# tins/day): No Frequency of alcohol use: None Drug Abuse: None Family History: Reviewed & Not Pertinent Patient has suicidal ideation: No Patient has homicidal ideation: No Endocrine Medical History: Denies: Hx Diabetes Mellitus Type 1, Hx Diabetes Mellitus Type 2 Renal/ Medical History: Denies: Hx Peritoneal Dialysis Psychiatric Medical History: Reports: Hx Bipolar Disorder, Hx Depression Past Surgical History: Reports: Hx Cholecystectomy. Denies: Hx Appendectomy - Immunizations Hx Diphtheria, Pertussis, Tetanus Vaccination: - Unknown Review of Systems - Review of Systems Notes: REVIEW OF SYSTEMS: CONSTITUTIONAL : Denies recent illness. Denies recent unintentional weight loss. Denies fever, chills, or sweats. EENT: Denies eye, ear, throat, or mouth pain, discharge, or symptoms. Denies nasal or sinus congestion. CARDIOVASCULAR: Denies chest pain. RESPIRATORY: Denies shortness of breath, cough, congestion, difficulty breathing , or wheezing. GASTROINTESTINAL: See HPI. GENITOURINARY: Denies difficulty urinating, burning, blood in urine, urgency or frequency. MUSCULOSKELETAL: Denies neck and back pain. Denies joint pain or swelling. SKIN: Denies rash, itchiness, or lesions. HEMATOLOGIC : Denies easy bruising or bleeding. LYMPHATIC: Denies swollen, painful, enlarged glands. NEUROLOGICAL: Denies no numbness or tingling denies weakness. Denies headache. Denies altered mental status. Denies alteration in speech. PSYCHIATRIC: Denies stress, anxiety, alteration in sleep patterns, or depression. All other systems reviewed and negative. Physical Exam - Vital signs Vitals: Resp Pulse Ox 20 100 08/05/18 01:17 08/05/18 01:17 - Notes Notes: PHYSICAL EXAMINATION: GENERAL: Appears well, healthy, well-nourished, no acute distress. HEAD: Normocephalic, atraumatic. EYES: PERRL, conjunctiva normal, all extraocular movements intact, sclera nonicteric ENT: Dry mucous membranes. NECK: Supple, no noticeable swelling, redness, rash. Normal range of motion. LUNGS: Equal breath sounds bilaterally and clear to auscultation. No wheezes rales or rhonchi. CARDIOVASCULAR: S1-S2, regular rate, regular rhythm. Radial pulses 2+, normal. ABDOMEN: Normoactive bowel sounds. Generalized tenderness abdomen upon palpation. EXTREMITIES: Normal strength and range of motion, no pitting or edema. No cyanosis. NEUROLOGICAL: Moves all extremities upon command. Strength 5/5 in all extremities. PSYCH: Normal mood, normal affect. SKIN: Warm, dry. No rash, lesions, ulcerations noted. Normal skin turgor. Course - Re-evaluation Re-evalutation: 08/05/18 00:30 Patient is crying hysterically and stating that she has never had this pain before and is hurting really bad in her left flank area. She has abdominal tenderness throughout her abdomen. I am concerned that she possibly has a ruptured ectopic . She does state that she is , but does not know how far along she is. She has not had any formal ultrasound by an [employer]SULTANT. Her last visit she was about 8 weeks . 08/05/18 01:00 Dr. Steiner is at bedside to assist with bedside FAST exam. At this time there appears to be no free air based on bedside ultrasound. There appears to be a fetus in her uterus. A formal ultrasound will be needed for further evaluation. She will also be evaluated via ultrasound for kidney stones and possible hydronephrosis. 08/05/18 04:15 Patient's chemistries are unremarkable and her CBC shows a leukocytosis of 13, 000. This is most likely due to her vomiting multiple times. She states she feels better. Her renal ultrasound shows no hydronephrosis. No comments on any stones per the radiologist read. Her transvaginal ultrasound shows a normal first trimester intrauterine . Most likely cause of her pain is dehydration. I have ordered another bolus for her to help with her hydration. She also complains of a possible abscess at her right labia. She was not complaining of this before she is instructed on using warm compresses to help express the discharge from the area. The abscess is a small less than half centimeter abscess. It appears as if it is able to drain on its own. 08/05/18 04:41 The nurses informed me that the patient is stating that it hurts when she eats. I have given her Pepcid and Benadryl IV to help with her stomach pain and ease her symptoms. 08/05/18 05:20 Despite giving Pepcid and Benadryl to help with her symptoms, patient is still complaining of pain. She was given crackers and apple juice, and has not vomited since. I have ordered a GI cocktail to help with her symptoms. Patient is continuing to state that she needs to be admitted, but she does not meet admission criteria. Her labs have actually improved since last visit. She was also able to keep her apple juice and 2 bites of crackers down. 08/05/18 05:54 The patient states she does feel better with the GI cocktail. She will be sent home on a GI cocktail regimen. I have explained to her that if she continues to take her medications as prescribed, she will most likely not have symptoms. I also have educated her that if her symptoms do continue while on her medications, she needs to follow-up in the emergency department and possibly be allowed by [employer]SULT[employer]. I have had a lengthy conversation with the patient in regards to her past visits and her continuing visits for abdominal pain. I went over her labs from this visit and last visit and showed her that her labs have actually improved over continue to stay the same. I told her that she needs to take her medications as prescribed and follow-up with [employer] SAL[employer]SULT[facility] for her hyperemesis gravidarum and have her first visit for her care. She is currently asking to eat [employer]. She was advised to keep her choices to bland food items, such as oatmeal, rice, and foods that will not irritate her stomach. 08/05/18 06:24 Strict verbal discharge instructions were given to the patient at bedside. She also had a visitor at bedside who understood the discharge instructions. - Vital Signs Vital signs: Temp Pulse Resp BP Pulse Ox 20 129/75 H 100 08/05/18 05:01 08/05/18 05:00 08/05/18 05:01 - Laboratory Result Diagrams: 08/05/18 00:36 08/05/18 00:36 Laboratory results interpreted by me: 08/05/18 08/05/18 08/05/18 00:36 00:36 02:20 WBC 13.8 H RDW 14.1 H Absolute Neutrophils 10.3 H Sodium 136.6 L Carbon Dioxide 20 L Urine Protein 30 H Urine Ketones 80 H Urine Urobilinogen 2.0 H Ur Leukocyte Esterase TRACE H Discharge - Discharge Clinical Impression: Vomiting during Abdominal pain Qualifiers: Abdominal location: epigastric Qualified Code(s): R10.13 - Epigastric pain Condition: Stable Disposition: HOME, SELF-CARE Additional Instructions: You have been seen in the emergency department for abdominal pain. Your pain is most likely because you have been throwing up multiple times. Your lab results look normal, other than the fact that you are dehydrated, which is not any different than your previous visit. You have been given fluids here in the emergency department along with nausea and pain medication. Please follow-up with your [employer] SALES CONSULTANT on Thursday in regards to this issue. You have also been sent home with Reglan to help you keep food and fluids down. Take the Reglan every 6 hours. You can buy Maalox [id number] at [facility]. Take 30 mL's of the Maalox with your Reglan, you may even buy the generic brand. Please stay hydrated for you and your baby. If you develop a fever of 100.4 F, have worsening abdominal pain, feel you are not getting any better, please return to the emergency department. Prescriptions: Metoclopramide HCl [Reglan Oral Soln 10 mg/10 ml Udcup] 10 mg PO Q6H #20 [facility] Referrals: [facility] [Provider Group] - Follow up as needed
[2018-08-05] MEDS ORDERED: FAMOTIDINE INJ/PF 20 MG/2 ML SDV IV ONE (04:40)
[2018-08-05] MEDS ORDERED: DIPHENHYDRAMINE HCL 50 MG/ML VIAL IV ONE (04:40)
[2018-08-05] MEDS ORDERED: METOCLOPRAMIDE HCL ORAL SOLN 10 MG/10 ML UDCUP PO ONE (05:16)
[2018-08-05] MEDS ORDERED: MAG HYDROX/AL HYDROX/SIMETH SUSP 30 ML UDCUP PO ONE (05:16)
[2018-08-05] MEDS ORDERED: LIDOCAINE 2% VISCOUS SOLN 20 ML UDCUP PO ONE (05:16)
[2018-08-05 06:34] VITALS: BP 118/72
== END 2018-08-05 06:39 | disposition home or self-care (01) ==
LOC: ER 00:27
DX: O21.0 Mild hyperemesis gravidarum (principal); O26.891 Other specified pregnancy related conditions, first trimester; R10.13 Epigastric pain; R10.817 Generalized abdominal tenderness; O99.111 Other diseases of the blood and blood-forming organs and certain disorders involving the immune mechanism complicating pregnancy, first trimester; D72.829 Elevated white blood cell count, unspecified; O99.711 Diseases of the skin and subcutaneous tissue complicating pregnancy, first trimester; L02.91 Cutaneous abscess, unspecified; Z3A.00 Weeks of gestation of pregnancy not specified; Z90.49 Acquired absence of other specified parts of digestive tract
CPT/HCPCS: 99285; 96361; 96374; 96375; 86900; 86901; 36415; 86850; 85025; 80053; 81001; 76775; 76801; 93976; J1200; J3010; J3490 ×3; J2270; J2405; J7030; S0028

== ENCOUNTER 2018-08-06 07:55 | Emergency (ER) | payer MEDICAID ==
[2018-08-06] MEDS ORDERED: FAMOTIDINE INJ/PF 20 MG/2 ML SDV IV ONE (08:14)
[2018-08-06] MEDS ORDERED: DIPHENHYDRAMINE HCL 50 MG/ML VIAL IV ONE (08:14)
--- NOTE | 2018-08-06 08:17 | ER Document Report ---
ED General - General Chief Complaint: Abdominal Pain Stated Complaint: ABDOMINAL PAIN Time Seen by Provider: 08/06/18 08:01 TRAVEL OUTSIDE OF THE [place] IN LAST 30 DAYS: No - HPI Notes: Patient is a 22-year-old female approximately 12 weeks who presents to the ED complaining of continued generalized abdominal pain, but primarily to the left side over the last several days. Patient states the pain does not radiate and is improved when she "shakes, moves around, and walks." Patient states that her last bowel movement was 2 days ago and was hard and small. Patient states that she did try to have a bowel movement yesterday without any success. She is still flatulent. Patient is able to eat and drink , but does have a decreased p.o. intake. She is urinating normally. She has no concern of STD or STI. Patient has a history of bipolar as well as visits to the emergency department for similar abdominal pain. Patient does have life stressors at home noted from a previous note. Patient had been evaluated previously with previous CT scans and workups without any definitive diagnosis. Denies drug allergies. Patient was evaluated yesterday and had an unremarkable workup including an ultrasound OB/renal. No vaginal bleeding/odor/ discharge, Denies any headache, fever, URI, sore throat, chest pain, palpitations, syncope, cough, shortness of breath, wheeze, dyspnea, nausea/ vomiting/diarrhea, urinary retention, dysuria, hematuria, loss of control of bowel or bladder, numbness/tingling, saddle anesthesia, muscle paralysis/ weakness, or rash. - Related Data Allergies/Adverse Reactions: No Known Allergies Allergy (Verified 07/09/18 09:07) Past Medical History - Social History Smoking Status: Unknown if Ever Smoked Family History: Reviewed & Not Pertinent Endocrine Medical History: Denies: Hx Diabetes Mellitus Type 1, Hx Diabetes Mellitus Type 2 Renal/ Medical History: Denies: Hx Peritoneal Dialysis Psychiatric Medical History: Reports: Hx Bipolar Disorder, Hx Depression Past Surgical History: Reports: Hx Cholecystectomy. Denies: Hx Appendectomy - Immunizations Hx Diphtheria, Pertussis, Tetanus Vaccination: - Unknown Review of Systems - Review of Systems -: Yes All other systems reviewed and negative Physical Exam - Vital signs Vitals: Temp Pulse Resp BP Pulse Ox 97.8 F 92 18 121/76 99 08/06/18 08:04 08/06/18 08:04 08/06/18 08:04 08/06/18 08:04 08/06/18 08:04 - Notes Notes: PHYSICAL EXAMINATION: GENERAL: Well-appearing, well-nourished and in no acute distress when I entered the room. After starting to talk to her she started to cry and c/o abd pain, left side. HEAD: Atraumatic, normocephalic. EYES: Pupils equal round and reactive to light, extraocular movements intact, sclera anicteric, conjunctiva are normal. ENT: Nares patent and without discharge. oropharynx clear without exudates. No tonsilar hypertrophy or erythema. Moist mucous membranes. NECK: Normal range of motion, supple without lymphadenopathy LUNGS: Breath sounds clear to auscultation bilaterally and equal. No wheezes rales or rhonchi. HEART: Regular rate and rhythm without murmurs, rubs, gallops. ABDOMEN: Soft, nondistended abdomen. No guarding, no rebound. No masses appreciated. Normal bowel sounds present. No CVA tenderness bilaterally. + mild tenderness generalized, but primarily to the left upper/mid abd. Musculoskeletal: FROM to passive/active. Strength 5+/5. Extremities: No cyanosis, clubbing, or edema b/l. Peripheral pulses 2+. Capillary refill less than 3 seconds. NEUROLOGICAL: Normal speech, normal gait. PSYCH: Normal mood, normal affect. SKIN: Warm, Dry, normal turgor, no rashes or lesions noted. Course - Re-evaluation Re-evalutation: 08/06/18 08:22 Pt appeared comfortable when I first entered and began talking to her, but after a minute or so she started crying and saying that her abd was hurting. We will obtain labs, give some medications, check heart tones, and give an enema. She had an unremarkable work up yesterday including OB/Renal US. 08/06/18 12:10 Patient is an afebrile, well-hydrated 22-year-old female who presents to the ED with epigastric abdominal pain which I suspect to be GERD versus gastritis at this time. Patient also has constipation. Vitals are acceptable without significant tachycardia, tachypnea, or hypoxia. PE is otherwise unremarkable. CBC, CMP, lipase unremarkable. Patient would not provide us with a urine sample. Patient does continue to smoke marijuana. heart tones are 175. Patient does not have any lower pelvic tenderness nor any reported vaginal discharge/odor/bleeding. Patient was given a GI cocktail as well as an enema which resolved her symptoms. Patient states that she did have a couple "good" bowel movements. Patient is able to tolerate p.o. without difficulty and is nontoxic-appearing. Her abdomen is now soft and nontender. Patient has not been writhing or crying in pain since treatment given. Patient currently is not on any antacid medicine for home so I will send her home with a prescription for pepcid as well as Carafate and Zofran. No further labs or imaging warranted at this time. Low suspicion/risk for acute appendicitis, bowel obstruction, acute cholecystitis, acute cholangitis, perforated diverticulitis, incarcerated hernia, pancreatitis, perforated ulcer, peritonitis , sepsis, pelvic inflammatory disease, ectopic , tubo-ovarian abscess, ovarian torsion, or other systemic emergent condition at this time. Patient is aware that her condition can change from initial presentation and she needs to monitor symptoms closely and seek medical attention if any acute changes. Conservative measures otherwise for symptoms. Recheck with OBGYN in 2-3 days. Recheck with your PCM in 2-3 days. Consider consult with a anthropometrist. Return to the ED with any worsening/concerning symptoms otherwise as reviewed in discharge. Patient is in agreement. - Vital Signs Vital signs: Temp Pulse Resp BP Pulse Ox 98.3 F 74 13 114/65 98 08/06/18 12:40 08/06/18 12:40 08/06/18 12:40 08/06/18 12:40 08/06/18 12:40 - Laboratory Result Diagrams: 08/06/18 09:30 08/06/18 09:30 Laboratory results interpreted by me: 08/06/18 08/06/18 09:30 09:30 Hct 35.6 L Sodium 135.9 L Creatinine 0.49 L Glucose 70 L Total Protein 6.0 L Albumin 3.3 L Beta HCG, Quant 64824.00 H Discharge - Discharge Clinical Impression: Epigastric pain, Vomiting during Condition: Stable Disposition: HOME, SELF-CARE Instructions: Abdominal Pain ([facility]), Antinausea Medication ([facility]) Additional Instructions: Maintain adequate fluid and food intake [employer] diet ([employer] Bananas, rice, apples, toast, etc Zofran as needed tylenol if needed Using antacid medicine as reviewed Monitor for any worsening symptoms Stop smoking Make sure you are staying hydrated enough to urinate and have normal BM's Recheck with your PCM/[employer]LECT[employer] H[employer] T[employer]ION TE[employer] in 2-3 days Consider consult with Gastroenterology for ongoing/worsening symptoms Return to the ED with any worsening symptoms and/or development of fever, headache, chest pain, palpitations, syncope, shortness of breath, trouble breathing, abdominal pain, n/v/d, blood in stool/urine, weakness, or other worsening symptoms that are concerning to you. Prescriptions: Famotidine [Pepcid] 20 mg PO DAILY #15 tablet Ondansetron [Zofran Odt 4 mg Tablet] 1 - 2 tab PO Q4H PRN #15 tab.rapdis PRN Reason: For Nausea/Vomiting Sucralfate [Carafate] 1 gm PO BID #100 ml Forms: Smoking Cessation Education Referrals: KAILYN THOMPSON MD [ACTIVE STAFF] - Follow up as needed [facility] [Provider Group] - Follow up as needed [facility] [Provider Group] - Follow up in 3-5 days
[2018-08-06] MEDS ORDERED: ONDANSETRON HCL INJ/PF 4 MG/2 ML SDV IV ONE (08:20)
[2018-08-06] MEDS: ACETAMINOPHEN 325 MG TABLET PO ONE ×2 (08:42→08:48)
[2018-08-06 09:37] LABS: ABSOLUTE BASOPHILS # (AUTO) 0.1 10^3/uL (0.0-0.2); ABSOLUTE EOSINOPHILS # (AUTO) 0.1 10^3/uL (0.0-0.6); ABSOLUTE LYMPHOCYTES (AUTO) 2.4 10^3/uL (0.5-4.7); ABSOLUTE MONOCYTES (AUTO) 0.7 10^3/uL (0.1-1.4); ABSOLUTE NEUT (AUTO) 6.9 10^3/uL (1.7-8.2); BASOPHILS % (AUTO) 0.7 % (0-2); EOSINOPHILS % (AUTO) 1.3 % (0-6); HEMATOCRIT 35.6 % (36.0-47.0); HEMOGLOBIN 12.1 g/dL (12.0-15.5); LYMPHOCYTES % (AUTO) 23.8 % (13-45); MEAN CORPUSCULAR HEMOGLOBIN 29.5 pg (27.0-33.4); MEAN CORPUSCULAR VOLUME 87 fl (80-97); MONOCYTES % (AUTO) 6.4 % (3-13); PLATELET COUNT 269 10^3/uL (150-450); RED BLOOD COUNT 4.11 10^6/uL (3.72-5.28); RED CELL DISTRIBUTION WIDTH 13.9 % (11.5-14.0); SEGMENTED NEUTROPHILS % (AUTO) 67.8 % (42-78); TOTAL CELLS COUNTED % (AUTO) 100 %; WHITE BLOOD COUNT 10.2 10^3/uL (4.0-10.5)
[2018-08-06 09:54] LABS: ALANINE AMINOTRANSFERASE 18 U/L (9-52); ALBUMIN 3.3 g/dL (3.5-5.0); ALKALINE PHOSPHATASE 46 U/L (38-126); ANION GAP 10 (5-19); ASPARTATE AMINO TRANSFERASE 16 U/L (14-36); BILIRUBIN,DIRECT 0.1 mg/dL (0.0-0.4); BILIRUBIN,TOTAL 0.7 mg/dL (0.2-1.3); BLOOD UREA NITROGEN 7 mg/dL (7-20); CARBON DIOXIDE 23 mmol/L (22-30); CHLORIDE 103 mmol/L (98-107); GLUCOSE 70 mg/dL (75-110); LIPASE 26.2 U/L (23-300); POTASSIUM 3.8 mmol/L (3.6-5.0); SODIUM 135.9 mmol/L (137-145)
[2018-08-06] MEDS ORDERED: LIDOCAINE 2% VISCOUS SOLN 20 ML UDCUP PO ONE (11:40)
[2018-08-06] MEDS ORDERED: METOCLOPRAMIDE HCL ORAL SOLN 10 MG/10 ML UDCUP PO ONE (11:40)
[2018-08-06] MEDS ORDERED: MAG HYDROX/AL HYDROX/SIMETH SUSP 30 ML UDCUP PO ONE (11:40)
[2018-08-06 12:49] VITALS: BP 114/65
== END 2018-08-06 13:13 | disposition home or self-care (01) ==
LOC: ER 07:55
DX: O21.9 Vomiting of pregnancy, unspecified (principal); O26.891 Other specified pregnancy related conditions, first trimester; R10.13 Epigastric pain; R10.84 Generalized abdominal pain; Z3A.12 12 weeks gestation of pregnancy
CPT/HCPCS: 99284; 96374; 96375; 36415; 84702; 83690; 85025; 80053; J1200; J3490 ×3; J2405; S0028

== ENCOUNTER 2018-08-09 08:36 | Inpatient (IN) | payer MEDICAID ==
[2018-08-09] MEDS ORDERED: NORMAL SALINE 1000 ML 1,000 ML IV ONE (09:12)
[2018-08-09] MEDS ORDERED: FAMOTIDINE INJ/PF 20 MG/2 ML SDV IV ONE (09:46)
[2018-08-09] MEDS ORDERED: MAG HYDROX/AL HYDROX/SIMETH SUSP 30 ML UDCUP PO ONE (09:49)
[2018-08-09] MEDS ORDERED: METOCLOPRAMIDE HCL ORAL SOLN 10 MG/10 ML UDCUP PO ONE (09:49)
[2018-08-09] MEDS ORDERED: LIDOCAINE 2% VISCOUS SOLN 20 ML UDCUP PO ONE (09:49)
--- NOTE | 2018-08-09 09:54 | ER Document Report ---
ED General - General Chief Complaint: Nausea/Vomiting Stated Complaint: STOMACH PAIN, VOMITING Time Seen by Provider: 08/09/18 09:11 TRAVEL OUTSIDE OF THE [place] IN LAST 30 DAYS: No - HPI Notes: Patient is a 22-year-old female at 13 weeks gestational age that presents to the emergency department for chief complaint of abdominal pain. Patient reports history of chronic abdominal pains. She is not sure why she has the abdominal pain. She denies history of receiving EGD in the past. She states she has had a left upper abdominal pain now that has been constant for the last week. It is exacerbated while eating. She reports associated nausea and vomiting. She reports decreased p.o. intake. She denies any vaginal bleeding, vaginal discharge or lower pelvic pain. She denies any fevers or chills, cough, chest pain and shortness of breath. Patient states that she has been prescribed Zofran which does not help with the pain. She took Tylenol 2 days ago for the pain and states that did not work as well. She has seen OB/ ICICLE MACHINE OPERATOR with this current and had confirmation of single intrauterine gestation. Past Medical History: Bipolar Past Surgical History: Negative Social History: Marijuana. Denies tobacco and alcohol Family History: Reviewed and noncontributory for presenting illness Allergies: Reviewed, see documented allergy list. REVIEW OF SYSTEMS: CONSTITUTIONAL : No fever No chills No diaphoresis No recent illness EENT: No vision changes No congestion No sore throat CARDIOVASCULAR: No chest pain No palpitations RESPIRATORY: No shortness of breath No cough No difficulty breathing GASTROINTESTINAL: abdominal pain nausea vomiting No diarrhea GENITOURINARY: No dysuria No hematuria No difficulty urinating MUSCULOSKELETAL: No back pain No leg pain No arm pain SKIN: No rashes No lesions LYMPHATIC: No swollen, enlarged glands. NEUROLOGICAL: No lightheadedness No headache No weakness No paresthesias PSYCHIATRIC: No anxiety No depression PHYSICAL EXAMINATION: Vital signs reviewed, nursing noted reviewed. GENERAL: Well-appearing, well-nourished and in no acute distress. HEAD: Atraumatic, normocephalic. EYES: Eyes appear normal, extraocular movements intact, sclera anicteric, conjunctiva are normal. ENT: nares patent, oropharynx clear without exudates. Moist mucous membranes. NECK: Normal range of motion, supple without lymphadenopathy LUNGS: Breath sounds clear to auscultation bilaterally and equal. No wheezes rales or rhonchi. HEART: Regular rate and rhythm without murmurs ABDOMEN: Soft, nontender, normoactive bowel sounds. No rebound, guarding, or rigidity. No masses appreciated. EXTREMITIES: Nontender, good range of motion, no pitting or edema. NEUROLOGICAL: No focal neurological deficits. Moves all extremities spontaneously Motor and sensory grossly intact on exam. PSYCH: Normal mood, normal affect. SKIN: Warm, Dry, normal turgor, no rashes or lesions noted on exposed skin - Related Data Allergies/Adverse Reactions: No Known Allergies Allergy (Verified 07/09/18 09:07) Past Medical History - Social History Smoking Status: Never Smoker Family History: Reviewed & Not Pertinent Endocrine Medical History: Denies: Hx Diabetes Mellitus Type 1, Hx Diabetes Mellitus Type 2 Renal/ Medical History: Denies: Hx Peritoneal Dialysis Psychiatric Medical History: Reports: Hx Bipolar Disorder, Hx Depression Past Surgical History: Reports: Hx Cholecystectomy. Denies: Hx Appendectomy - Immunizations Hx Diphtheria, Pertussis, Tetanus Vaccination: - Unknown Physical Exam - Vital signs Vitals: Temp Pulse Resp BP Pulse Ox 98.0 F 136 H 20 95/73 L 98 08/09/18 08:40 08/09/18 08:40 08/09/18 08:40 08/09/18 08:40 08/09/18 08:40 Course - Re-evaluation Re-evalutation: 08/09/18 09:52 Vitals reviewed. Nursing notes reviewed. Patient is tachycardic and appears mildly dehydrated. She was given IV hydration, Pepcid and GI cocktail for symptomatic management. Her abdomen is soft with no reproducible tenderness. She has no peritoneal abdominal signs and I do not suspect acute surgical process. Nursing reports patient walked in to the department in no distress and was requesting to be admitted to the hospital. When nursing informed her that we would do an evaluation and see if there was a reason for her to be admitted she then began to shake and ride in the bed stating that she needed to be admitted to the hospital. Nursing states she appeared to be completely comfortable prior to being told that she may not get admitted to the hospital unless there was admittable diagnosis found. 08/09/18 11:04 Patient reevaluated and reports only minimal improvement of her pain. Her abdominal exam is still soft with no focal tenderness and no peritoneal signs. I discussed her care with Dr. Adams AGRICULTURAL CONSULTANT. Patient has had 3 visits to the emergency room for her current symptoms. She did present tachycardic and clinically dehydrated. She will be admitted to the hospital for observation overnight, hydration, and OB evaluation. Patient in agreement with this plan and stable at admission. Her workup in the emergency room was unremarkable. I suspect her symptoms are related to underlying gastritis or gastric ulcer Laboratory 08/09/18 08/09/18 09:35 09:35 WBC 12.2 H RBC 4.65 Hgb 13.6 Hct 40.4 MCV 87 MCH 29.2 MCHC 33.6 RDW 14.1 H Plt Count 331 Seg Neutrophils % 75.8 Lymphocytes % 18.5 Monocytes % 4.1 Eosinophils % 0.9 Basophils % 0.7 Absolute Neutrophils 9.2 H Absolute Lymphocytes 2.3 Absolute Monocytes 0.5 Absolute Eosinophils 0.1 Absolute Basophils 0.1 Sodium 137.2 Potassium 4.2 Chloride 102 Carbon Dioxide 21 L Anion Gap 14 BUN 10 Creatinine 0.54 Est GFR ( Amer) > 60 Est GFR (Non-Af Amer) > 60 Glucose 67 L Calcium 9.7 Total Bilirubin 0.7 Direct Bilirubin 0.2 Neonat Total Bilirubin Not Reportable Neonat Direct Bilirubin Not Reportable Neonat Indirect Bili Not Reportable AST 19 ALT 16 Alkaline Phosphatase 53 Total Protein 6.9 Albumin 3.8 Lipase 22.1 L - Vital Signs Vital signs: Temp Pulse Resp BP Pulse Ox 98.0 F 136 H 20 95/73 L 98 08/09/18 08:40 08/09/18 08:40 08/09/18 08:40 08/09/18 08:40 08/09/18 08:40 - Laboratory Result Diagrams: 08/09/18 09:35 08/09/18 09:35 Laboratory results interpreted by me: 08/09/18 08/09/18 09:35 09:35 WBC 12.2 H RDW 14.1 H Absolute Neutrophils 9.2 H Carbon Dioxide 21 L Glucose 67 L Lipase 22.1 L Discharge - Discharge Clinical Impression: Abdominal pain affecting Nausea and vomiting Qualifiers: Vomiting type: unspecified Vomiting Intractability: non-intractable Qualified Code(s): R11.2 - Nausea with vomiting, unspecified Condition: Stable Disposition: ADMITTED OBSERVATION Admitting Provider: Dr. Adams Unit Admitted: Labor and Delivery - second floor
[2018-08-09 10:11] LABS: ABSOLUTE BASOPHILS # (AUTO) 0.1 10^3/uL (0.0-0.2); ABSOLUTE EOSINOPHILS # (AUTO) 0.1 10^3/uL (0.0-0.6); ABSOLUTE LYMPHOCYTES (AUTO) 2.3 10^3/uL (0.5-4.7); ABSOLUTE MONOCYTES (AUTO) 0.5 10^3/uL (0.1-1.4); ABSOLUTE NEUT (AUTO) 9.2 10^3/uL (1.7-8.2); BASOPHILS % (AUTO) 0.7 % (0-2); EOSINOPHILS % (AUTO) 0.9 % (0-6); HEMATOCRIT 40.4 % (36.0-47.0); HEMOGLOBIN 13.6 g/dL (12.0-15.5); LYMPHOCYTES % (AUTO) 18.5 % (13-45); MEAN CORPUSCULAR HEMOGLOBIN 29.2 pg (27.0-33.4); MEAN CORPUSCULAR HGB CONC 33.6 g/dL (32.0-36.0); MEAN CORPUSCULAR VOLUME 87 fl (80-97); MONOCYTES % (AUTO) 4.1 % (3-13); PLATELET COUNT 331 10^3/uL (150-450); RED BLOOD COUNT 4.65 10^6/uL (3.72-5.28); RED CELL DISTRIBUTION WIDTH 14.1 % (11.5-14.0); SEGMENTED NEUTROPHILS % (AUTO) 75.8 % (42-78); TOTAL CELLS COUNTED % (AUTO) 100 %; WHITE BLOOD COUNT 12.2 10^3/uL (4.0-10.5)
[2018-08-09 10:34] LABS: ALANINE AMINOTRANSFERASE 16 U/L (9-52); ALBUMIN 3.8 g/dL (3.5-5.0); ALKALINE PHOSPHATASE 53 U/L (38-126); ANION GAP 14 (5-19); ASPARTATE AMINO TRANSFERASE 19 U/L (14-36); BILIRUBIN,DIRECT 0.2 mg/dL (0.0-0.4); BILIRUBIN,TOTAL 0.7 mg/dL (0.2-1.3); BLOOD UREA NITROGEN 10 mg/dL (7-20); CALCIUM 9.7 mg/dL (8.4-10.2); CARBON DIOXIDE 21 mmol/L (22-30); CHLORIDE 102 mmol/L (98-107); GLUCOSE 67 mg/dL (75-110); LIPASE 22.1 U/L (23-300); POTASSIUM 4.2 mmol/L (3.6-5.0); SODIUM 137.2 mmol/L (137-145); TOTAL PROTEIN 6.9 g/dL (6.3-8.2)
[2018-08-09] MEDS: DIPHENHYDRAMINE HCL 25 MG CAPSULE PO ONE ×2 (12:04→12:19)
--- NOTE | 2018-08-09 14:28 | PDOC H&P ---
History of Present Illness Admission Date/PCP: 08/09/18 11:27 MAYELIN LOPEZ MD Patient complains of: abdominal pain nausea vomiting at 13 weeks History of Present Illness: KELLI DANIEL is a 22 year old female @ 13 wks ega who has presented to ther ER 3 times this week with similar symptoms of n/v and abdominal pain. did receive a enema with subsuquent BM with some relief at a previous visit. Indicates today that she hasn't been able to eat for several days and is "extremely hungry" but that she has "extreme abdominal pain" in her lower right quadrant Past Medical History Past Medical History: as per HPI. Indicates "stomach problems" for several years that she had GB removed for. Cardiac Medical History: Reports: None Pulmonary Medical History: Reports: None EENT Medical History: Reports: None Neurological Medical History: Reports: None Endocrine Medical History: Denies: Diabetes Mellitus Type 1, Diabetes Mellitus Type 2 GI History Note: cholescystectomy for "stomach problems" Psychiatric Medical History: Reports: Bipolar Disorder, Depression Past Surgical History Past Surgical History: Reports: Cholecystectomy Denies: Appendectomy Social History Smoking Status: Never Smoker Frequency of Alcohol Use: None Hx Recreational Drug Use: No Drugs: None, Marijuana Hx Prescription Drug Abuse: No Past Social History Note: indicates her last MJ use was 2 wks ago - Advance Directive Resuscitation Status: Full Code Family History Family History: Reviewed & Not Pertinent Parental Family History Reviewed: Yes Children Family History Reviewed: Yes Sibling(s) Family History Reviewed.: Yes Medication/Allergy Home Medications: No122/Iron/Folic Acid [ Multi Tablet] 1 tab PO DAILY 08/09/18 Allergies/Adverse Reactions: No Known Allergies Allergy (Verified 07/09/18 09:07) Physical Exam - Physical Exam Vital Signs: Temp Pulse Resp BP Pulse Ox 98.2 F 115 H 18 148/96 H 98 08/09/18 13:25 08/09/18 13:25 08/09/18 13:25 08/09/18 13:25 08/09/18 13:25 General appearance: PRESENT: disheveled, mild distress Head exam: PRESENT: atraumatic Mouth exam: PRESENT: dry mucosa GI/Abdominal exam: PRESENT: soft - nontender, no guarding Neurological exam: PRESENT: alert, oriented to person, oriented to place, oriented to time, other Psychiatric exam: PRESENT: agitated Assessment & Plan - Diagnosis (2) Nausea and vomiting Qualifiers: Vomiting type: unspecified Vomiting Intractability: non-intractable Qualified Code(s): R11.2 - Nausea with vomiting, unspecified Is this a current diagnosis for this admission?: Yes (3) Abdominal pain Qualifiers: Abdominal location: epigastric Qualified Code(s): R10.13 - Epigastric pain Is this a current diagnosis for this admission?: Yes (4) Epigastric pain Is this a current diagnosis for this admission?: Yes (5) Hyperemesis Qualifiers: Vomiting type: unspecified Nausea presence: with nausea Qualified Code(s) : R11.2 - Nausea with vomiting, unspecified Is this a current diagnosis for this admission?: Yes - Time Time Spent: 30 to 50 Minutes Critical Time spent with patient: Less than 15 minutes Anticipated discharge: Home Within: within 24 hours - Inpatient Certification Based on my medical assessment, after consideration of the patient's comorbidities, presenting symptoms, or acuity I expect that the services needed warrant INPATIENT care.: Yes I certify that my determination is in accordance with my understanding of Medicare's requirements for reasonable and necessary INPATIENT services [42 CFR 412.3e].: Yes Medical Necessity: Need For IV Fluids, Other - Plan Summary Plan Summary: admit for observation and discharge in the am. Will treat with antiemetics. Patient requests something for sleep due to inability to sleep x 2 days. IV fluids.
[2018-08-09] MEDS ORDERED: DIPHENHYDRAMINE HCL 50 MG/ML VIAL IV ONE (14:33)
[2018-08-09] MEDS: DEXTROSE 5%-LACTATED RINGERS 1,000 ML IV PRN (15:00)
--- NOTE | 2018-08-09 15:37 | PSYCHOLOGICAL NOTE ---
Psych Note - Psych Note Date seen by psych provider: 08/09/18 Time seen by psych provider: 12:45 Psych Note: Reason for consult: Bipolar/ behavioral Patient is a 22-year-old female at 13 weeks gestational age that presents to the emergency department for chief complaint of abdominal pain. Chart review conducted Nursing reports patient walked in to the department in no distress and was requesting to be admitted to the hospital. When nursing informed her that we would do an evaluation and see if there was a reason for her to be admitted she then began to shake and ride in the bed stating that she needed to be admitted to the hospital. Nursing states she appeared to be completely comfortable prior to being told that she may not get admitted to the hospital unless there was admittable diagnosis found. Patient reports that her brother brought her to [facility] because of stomach pain. She states that the pain has been going on for approximately a week and she is currently . She states that she did not have these difficulties with her first stating "I was sick but not in pain."She continues to disclose that she does have a diagnosis of bipolar however is not been on any medications or has an outpatient provider for a while. She denies any recent difficulty with symptoms. She reports that she currently lives in [place] with her mother. She states that she has been going through multiple stressors stating "I does try to get a job and I found one however I am supposed to start on Thursday however that I do not think I can work because of this pain." She states that she has been having stress from the "baby's father" because he is pushing for her to get an . She states that if she does not abort the baby he will stop providing further 1-year-old. She states that he only does odd jobs and gets paid under the table so does not receive a paycheck that can be garnished. She states that she does not want to have an . She reports that she feels safe at her mother's home and came to the hospital because she just does not want to be in pain anymore she states that she cannot eat or sleep in ends up "thrashing all night" from the pain and that she is "just miserable." When asked if she was sick for her for her first whole she reports "I was mostly in the hospital for a whole for the first time." When asked if she is only coming to the hospital because of pain when she is she states "I am always in the hospital because of nausea and pain." Patient is alert and orientated to person, place, time and circumstance. Mood is dysphoric with restricted affect. Clinician notes patient is observed laying in the bed with a blanket over her head reporting she is cold. She was asked to removed the blanket from her head. Patient denies suicidal homicidal ideations. Delusions are absent behaviors congruent with an intact reality based presentation i.e. organized linear thought process. Eye contact is poor. Conversational speech is overall within normal rate tone and prosody. Intellectual abilities appear to be average range. Attention and concentration are fair. Insight, judgment, impulse control are fair. 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 Patient does not meet IVC criteria per [place] GS 122C. Patient reports she came to [facility] ED for medical concern denies any difficulties with her bipolar symptoms. Patient is currently and is unable to be on any mood stabilizers. Clinician notes significant cluster B personality traits are noted. While the patient discloses current stressors, she denies thoughts of harming herself or others; she lives with her mother and reports she feels safe at home. Dr. Padilla was consulted and the care and management this patient; attending physicians in agreement with recommendations and disposition.
[2018-08-09] MEDS: PROMETHAZINE HCL INJ 25 MG/1 ML VIAL IV PRN (15:56)
--- NOTE | 2018-08-09 17:02 | PDOC CONSULTATION ---
Consultation Consult Date: 08/09/18 Consult reason:: abdominal pains History of Present Illness Admission Date/PCP: 08/09/18 11:27 MAYELIN LOPEZ MD Patient complains of: abdominal pains History of Present Illness: KELLI DANIEL is a 22 year old female who has a history of Bipolar and 13 weeks c/o lower abdominal pains.She was in ED 08/05/18. Had a vaginal ultrasound which was normal with a 13 weeks intrauterine . Denies fever /chills though she claims feels warm usually at night. Constipated and given enema in the ED with good results. Admitted for lower abdominal pains which she claims is sharp on the LLQ. She also has nausea and attributes this to being hungry. Just tolerated some crackers. She appears to be quiet until seen when she is noted to be trashing on bed asking for some pain medication, Past Medical History Cardiac Medical History: Reports: None Pulmonary Medical History: Reports: None EENT Medical History: Reports: None Neurological Medical History: Reports: None Endocrine Medical History: Denies: Diabetes Mellitus Type 1, Diabetes Mellitus Type 2 Psychiatric Medical History: Reports: Bipolar Disorder, Depression Past Surgical History Past Surgical History: Reports: Cholecystectomy - lap harlan in 2016 Denies: Appendectomy Social History Smoking Status: Never Smoker Frequency of Alcohol Use: None Hx Recreational Drug Use: No Drugs: None, Marijuana Hx Prescription Drug Abuse: No - Advance Directive Resuscitation Status: Full Code Family History Family History: Reviewed & Not Pertinent Parental Family History Reviewed: Yes - father with DM Children Family History Reviewed: No Sibling(s) Family History Reviewed.: No Medication/Allergy Home Medications: No122/Iron/Folic Acid [ Multi Tablet] 1 tab PO DAILY 08/09/18 Allergies/Adverse Reactions: No Known Allergies Allergy (Verified 07/09/18 09:07) Review of Systems Constitutional: PRESENT: as per HPI Ears: PRESENT: other - no visual/hearing changes Nose, Mouth, and Throat: PRESENT: other - no headache Cardiovascular: PRESENT: other - no chest pains/cough Gastrointestinal: PRESENT: abdominal pain, nausea Genitourinary: PRESENT: other - no dysuria Psychiatric: PRESENT: depression Physical Exam Vital Signs: Temp Pulse Resp BP Pulse Ox 99.1 F 98 16 105/65 99 08/09/18 15:36 08/09/18 15:36 08/09/18 15:36 08/09/18 15:36 08/09/18 15:36 General appearance: PRESENT: mild distress Head exam: PRESENT: atraumatic Eye exam: PRESENT: conjunctiva pink Mouth exam: PRESENT: moist Neck exam: PRESENT: full ROM Respiratory exam: PRESENT: clear to auscultation isabella Cardiovascular exam: PRESENT: RRR Pulses: PRESENT: normal radial pulses GI/Abdominal exam: PRESENT: soft, tenderness - LLQ Rectal exam: PRESENT: deferred Extremities exam: PRESENT: full ROM Musculoskeletal exam: PRESENT: ambulatory Neurological exam: PRESENT: alert, awake, oriented to person, oriented to place , oriented to time, oriented to situation Psychiatric exam: PRESENT: agitated Skin exam: PRESENT: normal color, warm Assessment & Plan - Time Time Spent: 30 to 50 Minutes - Inpatient Certification Medical Necessity: Significant Comorbidiites Make Outpatient Treatment Too Risky , Need For IV Fluids, Need for Pain Control - Plan Summary Plan Summary: No surgical abdomen OK to try Acetaminophen for pain. Cleared by Dr Adams
[2018-08-09] MEDS ORDERED: ACETAMINOPHEN 1,000 MG/100 ML RTUPB IV ONE (18:00)
[2018-08-09] MEDS ORDERED: ZOLPIDEM TARTRATE 5 MG TABLET PO ONE (22:00)
[2018-08-09] MEDS ORDERED: DIPHENHYDRAMINE HCL 25 MG CAPSULE PO SCH (22:00)
[2018-08-09] MEDS ORDERED: MORPHINE SULFATE 10 MG/ML INJ IM ONE (23:00)
[2018-08-10 08:12] LABS: AMORPHOUS SEDIMENT,URINE TRACE /HPF; APPEARANCE,URINE CLOUDY; BILIRUBIN,URINE NEGATIVE (NEGATIVE); COLOR,URINE YELLOW; GLUCOSE, URINE NEGATIVE (NEGATIVE); KETONES,URINE 20 mg/dL (NEGATIVE); LEUKOCYTE ESTERASE,URINE TRACE (NEGATIVE); NITRITE,URINE NEGATIVE (NEGATIVE); PROTEIN,URINE NEGATIVE (NEGATIVE); UROBILINOGEN,URINE NEGATIVE mg/dL (<2.0)
[2018-08-10] MEDS: SIMETHICONE 80 MG TAB.CHEW PO PRN ×2 (09:40→18:32)
[2018-08-10 09:45] LABS: CHLAM PCR NOT DETECTED (NOT DETECT); GON PCR NOT DETECTED (NOT DETECT)
--- NOTE | 2018-08-10 10:27 | Physician Advisory Note ---
Physician Advisor ProgressNote .: Pursuant to the plan for [facility], I have reviewed the medical record for this patient. Physician Advisor Statement: Medicaid pt @13wks gestation in w/prominent tachycardia, hypotension, hypoglycemia, appearing dehyd'd, w/mild leukocytosis & c/o's of abd pain incongruent with exam findings, prominent cluster B (borderline/histrionic ...) traits. Status: Approp'ly brought in as Obs for IVF, antiemetics, w/plan for d/c today. If attending finds she is not clinically safe for d/c later today [persistent N/ V/inability to tolerate adequate po intake, recurrent hypoglycemia, recurrent tachycardia/hypotension that concerns attg ...], please document ongoing clinical concerns & then may consider change to Inpatient status. Thanks! CK
--- NOTE | 2018-08-10 11:29 | PDOC PROGRESS REPORT ---
Subjective Progress Note for:: 08/10/18 Subjective:: pt c/o significant abd pain and requesting narcotics, Reason For Visit: IUP @ 13 WKS,NAUSEA/VOMITING,ABDOMINAL PAIN Physical Exam - Physical Exam Vital Signs: Temp Pulse Resp BP Pulse Ox 97.9 F 77 20 128/83 H 96 08/10/18 08:06 08/10/18 08:06 08/10/18 08:06 08/10/18 08:06 08/10/18 08:06 Intake & Output 08/09/18 08/10/18 08/11/18 06:59 06:59 06:59 Intake Total 100 Output Total 500 Balance 100 -500 Result Laboratory Results: 08/10/18 07:45 Urine Color YELLOW Urine Appearance CLOUDY Urine pH 6.0 Ur Specific [place] 1.020 Urine Protein NEGATIVE Urine Glucose (UA) NEGATIVE Urine Ketones 20 H Urine Blood NEGATIVE Urine Nitrite NEGATIVE Ur Leukocyte Esterase TRACE H Urine WBC (Auto) 3 Urine RBC (Auto) 1
--- NOTE | 2018-08-10 15:59 | PDOC PROGRESS REPORT ---
Subjective Progress Note for:: 08/10/18 Subjective:: abdominal pains Able to tolerate small amounts of regular diet Reason For Visit: IUP @ 13 WKS,NAUSEA/VOMITING,ABDOMINAL PAIN Physical Exam Vital Signs: Temp Pulse Resp BP Pulse Ox 97.9 F 75 16 140/95 H 100 08/10/18 15:29 08/10/18 15:29 08/10/18 15:29 08/10/18 15:29 08/10/18 15:29 Intake & Output 08/09/18 08/10/18 08/11/18 06:59 06:59 06:59 Intake Total 100 500 Output Total 500 Balance 100 0 Exam: abdomen is soft with tenderness only in the LLQ. Able to turn around from prone position to supine without any problems Remains afebrile Results Laboratory Results: 08/10/18 07:45 Urine Color YELLOW Urine Appearance CLOUDY Urine pH 6.0 Ur Specific [place] 1.020 Urine Protein NEGATIVE Urine Glucose (UA) NEGATIVE Urine Ketones 20 H Urine Blood NEGATIVE Urine Nitrite NEGATIVE Ur Leukocyte Esterase TRACE H Urine WBC (Auto) 3 Urine RBC (Auto) 1 Assessment & Plan - Plan Summary Plan Summary: Clinically appendicitis is ruled out. Will sign off.
[2018-08-10] MEDS ORDERED: NORMAL SALINE 1000 ML 1,000 ML with THIAMINE HCL 100 MG, MVI, ADULT NO.1 WITH VIT K 10 ... IV ONE ×8 (19:38→22:00)
[2018-08-10] MEDS: HYDROXYZINE PAMOATE 50 MG CAPSULE PO SCH (20:04)
[2018-08-10] MEDS ORDERED: LIDOCAINE 1% INJ-PF (10 MG/ML) 30 ML SDV ONE (21:46)
--- NOTE | 2018-08-10 22:54 | RADIOLOGY REPORT (SQ) ---
EXAM DESCRIPTION: XR CHEST 1 VIEW COMPLETED DATE/TME: 08/10/2018 00:00 CLINICAL HISTORY: 22 years, Female, POST CENTRAL LINE PLACEMENT COMPARISON: None. NUMBER OF VIEWS: 1 TECHNIQUE: Upright portable chest LIMITATIONS: None. FINDINGS: Heart size is normal. Central venous catheter with the tip in the superior vena cava. No pneumothorax. Lungs are clear. IMPRESSION: Central venous catheter with the tip in the SVC. No pneumothorax copyright 2010 [employer]- All Rights Reserved
[2018-08-10] MEDS: ACETAMINOPHEN 1,000 MG/100 ML RTUPB IV PRN (23:10)
[2018-08-11] MEDS: DEXTROSE 5%-LACTATED RINGERS 1,000 ML IV PRN (00:02)
[2018-08-11] MEDS: HYDROXYZINE PAMOATE 50 MG CAPSULE PO SCH ×3 (00:05→13:04)
[2018-08-11] MEDS: PROMETHAZINE HCL INJ 25 MG/1 ML VIAL IV PRN ×3 (00:25→10:06)
[2018-08-11] MEDS ORDERED: LORAZEPAM 1 MG TABLET PO ONE (02:14)
[2018-08-11] MEDS ORDERED: TRAMADOL HCL 50 MG TABLET PO ONE (02:17)
[2018-08-11] MEDS ORDERED: LORAZEPAM 1 MG TABLET ONE (02:19)
[2018-08-11] MEDS ORDERED: TRAMADOL HCL 50 MG TABLET ONE (02:20)
--- NOTE | 2018-08-11 02:55 | PDOC PROGRESS REPORT ---
Subjective Progress Note for:: 08/11/18 Subjective:: pt c/o significant abd pain and requesting narcotics, vomiting several more times. Dr. King and I have both evaluated her abd on several occasions today - benign Reason For Visit: IUP @ 13 WKS,NAUSEA/VOMITING,ABDOMINAL PAIN Physical Exam - Physical Exam Vital Signs: Temp Pulse Resp BP Pulse Ox 97.9 F 75 16 140/95 H 100 08/10/18 15:29 08/10/18 15:29 08/10/18 15:29 08/10/18 15:29 08/10/18 15:29 Intake & Output 08/09/18 08/10/18 08/11/18 06:59 06:59 06:59 Intake Total 1100 500 Output Total 500 Balance 1100 0 General appearance: PRESENT: mild distress, well-developed, well-nourished, other - constantly moving legs in bed, moving head constantly side to side and choreaform movements of body constantly. Head exam: PRESENT: atraumatic, normocephalic Respiratory exam: PRESENT: clear to auscultation isabella, symmetrical, unlabored Cardiovascular exam: PRESENT: RRR. ABSENT: diastolic murmur, rubs, systolic murmur GI/Abdominal exam: PRESENT: normal bowel sounds, soft, tenderness - minimal ttp in llq - more c/w musculoskeletal pain and paitent is distractable. ABSENT: ascites, diminished bowel sounds, firm, guarding, mass, rebound, rigid Rectal exam: PRESENT: deferred Extremities exam: PRESENT: full ROM. ABSENT: calf tenderness, clubbing, pedal edema Neurological exam: PRESENT: alert, awake, oriented to person, oriented to place , oriented to time, oriented to situation, CN II-XII grossly intact. ABSENT: motor sensory deficit Skin exam: PRESENT: dry, intact, warm. ABSENT: cyanosis, rash Result Laboratory Results: 08/10/18 07:45 Urine Color YELLOW Urine Appearance CLOUDY Urine pH 6.0 Ur Specific [place] 1.020 Urine Protein NEGATIVE Urine Glucose (UA) NEGATIVE Urine Ketones 20 H Urine Blood NEGATIVE Urine Nitrite NEGATIVE Ur Leukocyte Esterase TRACE H Urine WBC (Auto) 3 Urine RBC (Auto) 1 Impressions: Chest X-Ray 08/10/18 00:00 IMPRESSION: Central venous catheter with the tip in the SVC. No pneumothorax copyright 2011 [employer]- All Rights Reserved Assessment & Plan - Diagnosis (1) Abdominal pain affecting Is this a current diagnosis for this admission?: Yes Plan: Pt with benign abdominal exam again - have received several phone calls regarding pain. At one point she states she wants to keep and other times she states she is terminating next week. She has been given 1 gram of tylenol IV (once access obtained - Dr King obtained central access due to unable to obtain peripheral line, also given IV phenergan. Pt slept for approx 2 hours and then now states her pain is so severe that she is swinging arms and shaking body demanding narcotics/pain meds. Reviewed US with paitent and exams findings and reviewed with patient that gas pain and hyperemesis with vomiting and the significant craying and wailing that she is doing is contributing also to her abdominal pain. She is swallowing a lot of air with her crying episodes and burping a lot - simethicone has also been given. . No e/o etiology for her pain other than gas pain and hyperemesis. Currently NPO. Banana bag ordered. S/w Dr King again regarding abdominal pain management with no etiology and likely malingering with Bi polar d/o. She was offered an MRI for the same abdominal pain in her last (see prior notes/ admissions) and declined MRI. Will plan for MRI tomorrow - she has agreed and consent signed. Dr. King will see again in the am. I have offered her ambien. I have discussed with her limited safety of medications narcotics and ativan etc with . She states that she doesn't care that she is going to terminate next week and she has an appt. She seems to be in manic phase which may be contributing to her symptoms. She will be given a on time dose of ativan and tramadol. THen if needed will given ambien. We have reviewed the need to avoid IV narcotics and narcotics in general. (2) Nausea and vomiting Qualifiers: Vomiting type: unspecified Vomiting Intractability: non-intractable Qualified Code(s): R11.2 - Nausea with vomiting, unspecified Is this a current diagnosis for this admission?: Yes Plan: continued emesis - will treat as hyperemesis. Banana bag now and will hold food for now. Rechk labs in am. Phenergan ordered. Reviewed other meds - will add pepcid (3) Bipolar 1 disorder Is this a current diagnosis for this admission?: Yes Plan: pt has self discontinued meds again and declines latuda. She does agree to Vistaril - 50mg po TID ordered. She seems to have intermittent manic episodes related to her pain and usually when family not around. I spent more than 1 hr in the room on separate occasions in room discussing current medical issues and prior admissions and need to avoid narcotics. She states she just wants to sleep. RN in room with me due to patient in distress from mood. Psych has seen patient search planner placed - Time Time Spent with patient: 35 or more minutes Anticipated discharge: Home Within: within 72 hours - Inpatient Certification Based on my medical assessment, after consideration of the patient's comorbidities, presenting symptoms, or acuity I expect that the services needed warrant INPATIENT care.: Yes I certify that my determination is in accordance with my understanding of Medicare's requirements for reasonable and necessary INPATIENT services [42 CFR 412.3e].: Yes Medical Necessity: Failure to Improve With Outpatient Therapy, Need Close Monitoring Due to Risk of Patient Decompensation, Need For IV Fluids Post Hospital Care: 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
[2018-08-11] MEDS ORDERED: FAMOTIDINE 20 MG TABLET PO ONE (03:00)
[2018-08-11] MEDS ORDERED: ZOLPIDEM TARTRATE 5 MG TABLET PO ONE (03:30)
--- NOTE | 2018-08-11 04:16 | OPERATIVE REPORT E ---
Operative Report NAME: KELLI DANIEL : 1995 AGE: 22Y DATE OF SURGERY: 08/10/2018 ROOM: 210 PREOPERATIVE DIAGNOSIS: POOR VEINS FOR IV ACCESS. POSTOPERATIVE DIAGNOSIS: POOR VEINS FOR IV ACCESS. OPERATION: Placement of left subclavian triple-lumen catheter. SURGEON: LISANDRA GARCIAS M.D. ANESTHESIA: Local. INDICATION: This is a 22-year-old female 13 weeks complaining of lower abdominal pains and needed IV medications. She may also need MRI and need contrast and needed IV access. DESCRIPTION OF PROCEDURE: The patient was placed in Trendelenburg position and the left clavicula and neck were then prepped and draped in the usual sterile fashion. Local anesthesia was then infiltrated at the left infraclavicular area and the left subclavian vein punctured and guidewire passed through the needle towards the area of the superior vena cava. The needle was removed and the puncture site dilated. A triple-lumen catheter was then inserted through the guidewire and threaded to a distance of about 18 cm. The guidewire was removed, and all the 3 ports aspirated blood easily and instilled saline easily. The catheter was then anchored to the skin with 3-0 silk and a Biopatch placed at the insertion site and a transparent sterile dressing placed over the Biopatch and catheter. The patient tolerated the procedure well. A chest x-ray will be obtained for placement. DICTATING PHYSICIAN: LISANDRA GARCIAS M.D. [id number] PHY#: [id number] ID: [id number] JOB#: [id number] ACCT: [id number] cc:LISANDRA GARCIAS M.D. >
[2018-08-11] MEDS ORDERED: FAMOTIDINE 20 MG TABLET ONE (08:56)
--- NOTE | 2018-08-11 09:09 | RADIOLOGY REPORT (SQ) ---
EXAM DESCRIPTION: U/S ABDOMEN COMPLETE W/DOPPLER COMPLETED DATE/TIME: 08/11/2018 8:57 am REASON FOR STUDY: 13wks, c/o abd pain, benign exam, unknown etiology COMPARISON: Abdominal ultrasound 04/27/2017 CT abdomen pelvis 05/05/2018 Bilateral renal ultrasound 08/05/2018 OB ultrasound 08/05/2018 TECHNIQUE: Dynamic and static grayscale images acquired of the abdomen and recorded on PACS. Additio nal selected color Doppler and spectral images recorded. LIMITATIONS: None. FINDINGS: PANCREAS: No masses. Visualized pancreatic duct normal caliber. LIVER: No masses. Echotexture normal. LIVER VASCULATURE: Normal directional flow of the main portal vein and hepatic veins. GALLBLADDER: No stones. Normal wall thickness. No pericholecystic fluid. ULTRASOUND-DETECTED SANTIAGO'S SIGN: Negative. INTRAHEPATIC DUCTS AND COMMON DUCT: CBD and intrahepatic ducts normal caliber. No filling defects. INFERIOR VENA CAVA: Normal flow. AORTA: No aneurysm. RIGHT KIDNEY: Normal size. Normal echogenicity. No solid or suspicious masses. No hydronephros is. No calcifications. LEFT KIDNEY: Normal size. Normal echogenicity. No solid or suspicious masses. No hydronephrosi s. No calcifications. SPLEEN: Normal size. No solid masses. PERITONEAL AND PLEURAL SPACES: No ascites or effusions. OTHER: Patient has pain in the left lower quadrant. No left lower quadrant abdominal wall defect. N o left lower quadrant free fluid. IMPRESSION: NORMAL ABDOMINAL ULTRASOUND. TECHNICAL DOCUMENTATION: JOB ID: [id number] [employer]- All Rights Reserved Reading location - IP/workstation name: [email or web address]
[2018-08-11] MEDS: ACETAMINOPHEN 1,000 MG/100 ML RTUPB IV PRN (09:14)
[2018-08-11 09:34] LABS: ABSOLUTE LYMPHOCYTES (AUTO) 0.9 10^3/uL (0.5-4.7); ABSOLUTE MONOCYTES (AUTO) 0.3 10^3/uL (0.1-1.4); ABSOLUTE NEUT (AUTO) 12.9 10^3/uL (1.7-8.2); BASOPHILS % (AUTO) 0.1 % (0-2); EOSINOPHILS % (AUTO) 0.1 % (0-6); HEMATOCRIT 40.2 % (36.0-47.0); HEMOGLOBIN 13.5 g/dL (12.0-15.5); LYMPHOCYTES % (AUTO) 6.3 % (13-45); MEAN CORPUSCULAR HEMOGLOBIN 29.2 pg (27.0-33.4); MEAN CORPUSCULAR HGB CONC 33.6 g/dL (32.0-36.0); MEAN CORPUSCULAR VOLUME 87 fl (80-97); MONOCYTES % (AUTO) 2.3 % (3-13); PLATELET COUNT 331 10^3/uL (150-450); RED BLOOD COUNT 4.62 10^6/uL (3.72-5.28); SEGMENTED NEUTROPHILS % (AUTO) 91.2 % (42-78); TOTAL CELLS COUNTED % (AUTO) 100 %; WHITE BLOOD COUNT 14.1 10^3/uL (4.0-10.5)
[2018-08-11 09:42] LABS: ALANINE AMINOTRANSFERASE 21 U/L (9-52); ALBUMIN 3.9 g/dL (3.5-5.0); ALKALINE PHOSPHATASE 54 U/L (38-126); ANION GAP 15 (5-19); ASPARTATE AMINO TRANSFERASE 17 U/L (14-36); BILIRUBIN,DIRECT 0.2 mg/dL (0.0-0.4); BILIRUBIN,TOTAL 0.7 mg/dL (0.2-1.3); BLOOD UREA NITROGEN 8 mg/dL (7-20); CALCIUM 9.4 mg/dL (8.4-10.2); CARBON DIOXIDE 20 mmol/L (22-30); CHLORIDE 101 mmol/L (98-107); GLUCOSE 101 mg/dL (75-110); POTASSIUM 3.8 mmol/L (3.6-5.0); SODIUM 136.4 mmol/L (137-145)
[2018-08-11] MEDS ORDERED: FAMOTIDINE 20 MG TABLET PO SCH (10:00)
[2018-08-11 12:36] VITALS: BP 148/96
--- NOTE | 2018-08-11 14:51 | PDOC DISCHARGE SUMMARY ---
General - Admit/Disc Date/PCP Admission Date/Primary Care Provider: 08/10/18 12:06 MAYELIN LOPEZ MD Discharge Date: 08/11/18 - Discharge Diagnosis (1) Abdominal pain Is this a current diagnosis for this admission?: Yes - Additional Information Resuscitation Status: Full Code Discharge Diet: Regular Discharge Activity: Activity As Tolerated Home Medications: No122/Iron/Folic Acid [ Multi Tablet] 1 tab PO DAILY 08/09/18 History of Present Illness Patient complains of: I asked if she is having any bladder pains and she states that "If it will get me morphine hell ya. My but hurts too". History of Present Illness: KELLI DANIEL is a 22 year old female She has been admitted and evaluated by General surgery, psyche and Radiology as well as Ob. It does not appear an acute process is going on. There is a slightly elevated WBC and some leukocyte esterase in the urine. Sono of abdomen is ok. All feel she is ok for outpatient management. Psyche states that medication will not help but that she needs to continue counseling. Hospital Course Hospital Course: see above. Physical Exam - Physical Exam Vital Signs: Temp Pulse Resp BP Pulse Ox 98.3 F 94 18 148/96 H 98 08/11/18 14:39 08/11/18 14:39 08/11/18 14:39 08/11/18 14:39 08/11/18 14:39 Intake & Output 08/10/18 08/11/18 08/12/18 06:59 06:59 06:59 Intake Total 658 1111.2 Output Total 1630 Balance -972 1111.2 General appearance: PRESENT: disheveled, mild distress Head exam: PRESENT: atraumatic - Abd exam shows no peritoneal signs. See Surgery notes. Result Laboratory Results: 08/11/18 09:00 08/11/18 09:00 08/11/18 08/11/18 09:00 09:00 WBC 14.1 H RBC 4.62 Hgb 13.5 Hct 40.2 MCV 87 MCH 29.2 MCHC 33.6 RDW 14.0 Plt Count 331 Seg Neutrophils % 91.2 H Lymphocytes % 6.3 L Monocytes % 2.3 L Eosinophils % 0.1 Basophils % 0.1 Absolute Neutrophils 12.9 H Absolute Lymphocytes 0.9 Absolute Monocytes 0.3 Absolute Eosinophils 0.0 Absolute Basophils 0.0 Sodium 136.4 L Potassium 3.8 Chloride 101 Carbon Dioxide 20 L Anion Gap 15 BUN 8 Creatinine 0.50 L Est GFR ( Amer) > 60 Est GFR (Non-Af Amer) > 60 Glucose 101 Calcium 9.4 Total Bilirubin 0.7 AST 17 ALT 21 Alkaline Phosphatase 54 Total Protein 7.0 Albumin 3.9 Impressions: Chest X-Ray 08/10/18 00:00 IMPRESSION: Central venous catheter with the tip in the SVC. No pneumothorax copyright 2011 [employer]- All Rights Reserved Abdomen Ultrasound 08/11/18 08:01 IMPRESSION: NORMAL ABDOMINAL ULTRASOUND. Plan Discharge Plan: Plan to go home on Augmentin bid for a week. Followup arranged with the health department to straighten out her medicaid and followup. Time Spent: Greater than 30 Minutes
--- NOTE | 2018-08-11 15:10 | PDOC PROGRESS REPORT ---
Subjective Progress Note for:: 08/11/18 Subjective:: This is a 22-year-old female with chronic lower abdominal pain. The patient has multiple ER visits and admissions for similar complaints. The patient reports that her pain is exactly the same today as it was yesterday. It is localized to the left lower quadrant. It does not radiate. She denies fevers or chills. She has had no nausea or vomiting today. She denies melena, hematochezia, hematemesis. She denies chest pain, shortness of breath, headache , orthostasis, or dizziness. Her abdominal pain is worse while laying flat. She feels better when she is up and moving around. Reason For Visit: ABDOMINAL PAIN AND Physical Exam Vital Signs: Temp Pulse Resp BP Pulse Ox 98.3 F 94 18 148/96 H 98 08/11/18 14:39 08/11/18 14:39 08/11/18 14:39 08/11/18 14:39 08/11/18 14:39 Intake & Output 08/10/18 08/11/18 08/12/18 06:59 06:59 06:59 Intake Total 658 1111.2 Output Total 1630 Balance -972 1111.2 General appearance: PRESENT: no acute distress, disheveled Head exam: PRESENT: atraumatic, normocephalic Eye exam: PRESENT: EOMI, PERRLA. ABSENT: scleral icterus Mouth exam: PRESENT: neck supple Neck exam: ABSENT: meningismus, tenderness, thyromegaly, tracheal deviation Respiratory exam: PRESENT: unlabored. ABSENT: chest wall tenderness, tachypnea Cardiovascular exam: PRESENT: RRR Pulses: PRESENT: normal radial pulses Vascular exam: PRESENT: normal capillary refill. ABSENT: pallor GI/Abdominal exam: PRESENT: soft. ABSENT: distended, firm, guarding, hernia, rigid, tenderness Rectal exam: PRESENT: deferred Extremities exam: ABSENT: clubbing Musculoskeletal exam: ABSENT: deformity Neurological exam: PRESENT: alert, awake, CN II-XII grossly intact Psychiatric exam: PRESENT: agitated Focused psych exam: PRESENT: other - Fixated on narcotics. She is bargaining for narcotics and benzodiazepines. Skin exam: ABSENT: cyanosis, erythema, jaundice Results Laboratory Results: 08/11/18 09:00 08/11/18 09:00 08/11/18 08/11/18 09:00 09:00 WBC 14.1 H RBC 4.62 Hgb 13.5 Hct 40.2 MCV 87 MCH 29.2 MCHC 33.6 RDW 14.0 Plt Count 331 Seg Neutrophils % 91.2 H Lymphocytes % 6.3 L Monocytes % 2.3 L Eosinophils % 0.1 Basophils % 0.1 Absolute Neutrophils 12.9 H Absolute Lymphocytes 0.9 Absolute Monocytes 0.3 Absolute Eosinophils 0.0 Absolute Basophils 0.0 Sodium 136.4 L Potassium 3.8 Chloride 101 Carbon Dioxide 20 L Anion Gap 15 BUN 8 Creatinine 0.50 L Est GFR ( Amer) > 60 Est GFR (Non-Af Amer) > 60 Glucose 101 Calcium 9.4 Total Bilirubin 0.7 AST 17 ALT 21 Alkaline Phosphatase 54 Total Protein 7.0 Albumin 3.9 Impressions: Chest X-Ray 08/10/18 00:00 IMPRESSION: Central venous catheter with the tip in the SVC. No pneumothorax copyright 2011 [employer]- All Rights Reserved Abdomen Ultrasound 08/11/18 08:01 IMPRESSION: NORMAL ABDOMINAL ULTRASOUND. Assessment & Plan - Diagnosis (1) Left lower quadrant pain Is this a current diagnosis for this admission?: Yes - Plan Summary Plan Summary: This is a 22-year-old female with chronic, functional abdominal pain. She reports pain in her left lower quadrant, however I cannot elicit any abdominal tenderness on exam. Her abdomen is soft, nondistended, and essentially benign. Upon discussions with the patient, she is uninterested in any intervention aside from narcotic administration. Her discomfort may be related to constipation or IBS. I have recommended fiber and stool softeners for her. She has declined these. I have reviewed her abdominal ultrasound and lab work today. Her ultrasound is completely unremarkable. Her lab work shows a slight leukocytosis with a left shift. This could conceivably be related to a urinary tract infection or, less likely, a mild colitis. Oral antibiotics may be of some benefit. Patient cannot have a CT scan due to her recent . The patient does not have any indication for surgical exploration or other surgical interventions. I personally discussed the case with Dr. Elizabeth. I will see the patient again on an as-needed basis. Please re-notify with any questions or concerns.
--- NOTE | 2018-08-11 16:48 | PSYCHOLOGICAL NOTE ---
Psych Note - Psych Note Date seen by psych provider: 08/11/18 Time seen by psych provider: 12:15 Psych Note: Reason for consult: Reconsult requested because of patient behaviors Patient disclosed that she is in a lot of pain and needs to walk to help relieve the pain. She reports that she just wants something for the pain. She discloses irritability in regards to feeling that nobody is helping her with the pain. She appears to not be concerned that she is disrupting other patients on the floor. When asked if patient is having thoughts of harming herself she denies stating only when she is in pain but reports she does not have a plan means or intent. Patient then stated "I knew she would run off and tell you guys when I said that." Patient reports that she needs to get home to her son and does not want to be here. Patient reports that she does not need "help with my head..I need something to help take the pain away... This is not mental." Patient is alert and orientated to person, place, time and circumstance. Mood is irritable with congruent affect. Patient denies suicidal homicidal ideations. Patient appears to have made a suicidal comment when not getting what she had requested from [facility] staff. Delusions are absent behaviors congruent with an intact reality based presentation i.e. organized linear thought process. Eye contact is poor. Conversational speech clearly communicates her irritability. Intellectual abilities appear to be average range. Attention and concentration are fair. Insight, judgment, impulse control are fair. 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 Patient does not meet IVC criteria per [place] GS 122C. Patient continues to demonstrate cluster B personality traits. She reportedly made a suicidal comment to [facility] staff when not getting what she wants. Patient repeatedly requests medication for pain however refuses any psychiatric interventions. Patient has little concern for disrupting the entire floor with her behaviors. Chart review conducted indicates patient has a long history of behavioral events. Medication recommendations cannot be provided at this time because patient is currently in addition to patient's main presentation is personality traits. The most effective form of treatment for personality disorders is therapeutic intervention not medication management. Dr. Padilla was consulted and the care and management this patient; attending physicians in agreement with recommendations and disposition.
== END 2018-08-11 15:00 | disposition home or self-care (01) | DRG 832 ==
LOC: ER 08:36 → EH 11:27 → 2N 13:19 → OBSVTOIN 08-10 12:06
PROVIDERS: ADMIT Obstetrics & Gynecology; ATTEND Obstetrics & Gynecology
PROC: 02HV33Z Insertion of Infusion Device into Superior Vena Cava, Percutaneous Approach (ICD-10-PCS; principal; 2018-08-10)
DX: O21.9 Vomiting of pregnancy, unspecified (principal); O99.411 Diseases of the circulatory system complicating pregnancy, first trimester; R10.32 Left lower quadrant pain; O99.341 Other mental disorders complicating pregnancy, first trimester; F31.9 Bipolar disorder, unspecified; R00.0 Tachycardia, unspecified; Z3A.13 13 weeks gestation of pregnancy
CPT/HCPCS: 36415; 71045; 76700; 80053; 81001; 83690; 85025; 87491; 87591; 93976; 96361; 96374; 99285; G0378; J0131; J1200; J2270; J2550; J3411; J3490; J7030; S0028

== ENCOUNTER 2018-09-26 15:00 | Emergency (ER) | payer MEDICAID ==
[2018-09-26] MEDS ORDERED: MORPHINE SULFATE 10 MG/ML INJ IV ONE ×2 (15:24→19:37)
--- NOTE | 2018-09-26 15:24 | ER Document Report ---
ED Medical Screen (RME) - General Chief Complaint: Abdominal Pain Stated Complaint: ABDOMINAL PAIN Time Seen by Provider: 09/26/18 15:20 Mode of Arrival: Ambulatory Information source: Patient TRAVEL OUTSIDE OF THE [place] IN LAST 30 DAYS: No - HPI Patient complains to provider of: abd pain Onset: Yesterday - pt is approx 20 wks with onset of L-sided abd pain starting yesterday with exacerbation this am - Related Data Allergies/Adverse Reactions: No Known Allergies Allergy (Verified 09/26/18 15:01) Past Medical History Endocrine Medical History: Denies: Hx Diabetes Mellitus Type 1, Hx Diabetes Mellitus Type 2 Renal/ Medical History: Denies: Hx Peritoneal Dialysis Psychiatric Medical History: Reports: Hx Bipolar Disorder, Hx Depression Past Surgical History: Reports: Hx Cholecystectomy - lap harlan in 2016. Denies: Hx Appendectomy - Immunizations Hx Diphtheria, Pertussis, Tetanus Vaccination: - Unknown Physical Exam - Vital signs Vitals: Temp Pulse Resp BP Pulse Ox 98.2 F 87 20 117/68 97 09/26/18 15:04 09/26/18 15:04 09/26/18 15:04 09/26/18 15:04 09/26/18 15:04 Course - Vital Signs Vital signs: Temp Pulse Resp BP Pulse Ox 98.2 F 87 20 117/68 97 09/26/18 15:04 09/26/18 15:04 09/26/18 15:04 09/26/18 15:04 09/26/18 15:04 Doctor's Discharge - Discharge Referrals: MAYELIN LOPEZ MD [Primary Care Provider] - Follow up as needed
--- NOTE | 2018-09-26 16:37 | RADIOLOGY REPORT (SQ) ---
EXAM DESCRIPTION: U/S OB 14+ TA/1 GEST W/DOPPLER COMPLETED DATE/TIME: 09/26/2018 4:21 pm REASON FOR STUDY: L-sided abd pain COMPARISON: 08/05/2018 TECHNIQUE: Static and Dynamic grayscale imaging performed of gravid uterus using transabdominal appr oach. Additional selected color Doppler and spectral images recorded. All stored on PACS. LIMITATIONS: None. FINDINGS: FETUSES SEEN:1 EGA: 19 weeks 4 day Calculated using BPD,FL,HC,AC documented on images. No discrepancy with clinical dates. RANDA: 02/26/2019 EFW: Not calculated PERCENTILE: Not calculated KD: Not calculated PLACENTA: Posterior PRESENTATION: Vertex ANATOMY: HEART RATE: 141 beats per minute. FOUR CHAMBER HEART: Limited evaluate THREE VESSEL CORD: Yes. CORD INSERTION: Visualized. KIDNEYS AND BLADDER: Visualized. Appear normal. STOMACH: Visualized. Appears normal. SPINE: Normal as visualized. BRAIN AND LATERAL VENTRICLES: Visualized. Appear normal. OTHER: No other significant finding. MATERNAL ADNEXA: Maternal ovaries not visualized as the patient terminated the exam early. CERVICAL LENGTH: Not imaged OTHER: No other significant finding. IMPRESSION: LIVING INTRAUTERINE . Limited visualization of the heart. Attention on follow-up exam. Trimester of : Second trimester - 13 weeks 1 day to 27 weeks 6 days. TECHNICAL DOCUMENTATION: JOB ID: [id number] [employer]- All Rights Reserved Reading location - IP/workstation name: [email or web address]
[2018-09-26 16:40] LABS: ABSOLUTE BASOPHILS # (AUTO) 0.1 10^3/uL (0.0-0.2); ABSOLUTE MONOCYTES (AUTO) 0.7 10^3/uL (0.1-1.4); ABSOLUTE NEUT (AUTO) 13.9 10^3/uL (1.7-8.2); BASOPHILS % (AUTO) 0.9 % (0-2); EOSINOPHILS % (AUTO) 0.3 % (0-6); HEMATOCRIT 38.9 % (36.0-47.0); HEMOGLOBIN 13.4 g/dL (12.0-15.5); LYMPHOCYTES % (AUTO) 11.6 % (13-45); MEAN CORPUSCULAR HEMOGLOBIN 29.5 pg (27.0-33.4); MEAN CORPUSCULAR HGB CONC 34.4 g/dL (32.0-36.0); MEAN CORPUSCULAR VOLUME 86 fl (80-97); MONOCYTES % (AUTO) 4.1 % (3-13); PLATELET COUNT 302 10^3/uL (150-450); RED BLOOD COUNT 4.55 10^6/uL (3.72-5.28); RED CELL DISTRIBUTION WIDTH 13.3 % (11.5-14.0); SEGMENTED NEUTROPHILS % (AUTO) 83.1 % (42-78); TOTAL CELLS COUNTED % (AUTO) 100 %; WHITE BLOOD COUNT 16.7 10^3/uL (4.0-10.5)
[2018-09-26] MEDS ORDERED: NORMAL SALINE 1000 ML 1,000 ML IV ONE (16:52)
--- NOTE | 2018-09-26 16:52 | ER Document Report ---
ED General <TERESITA WATSON - Last Filed: 09/27/18 00:37> - General Mode of Arrival: Ambulatory TRAVEL OUTSIDE OF THE [place] IN LAST 30 DAYS: No <RADHA JONES - Last Filed: 09/29/18 07:01> - General Chief Complaint: Abdominal Pain Stated Complaint: ABDOMINAL PAIN Time Seen by Provider: 09/26/18 15:20 - HPI Notes: Patient is a 23-year-old female that presents to the emergency department for chief complaint of abdominal pain nausea vomiting and diarrhea. Patient was reporting a sharp pain on her left side that is worse in the left lower quadrant but is also present in the left upper quadrant. She reports 10 episodes of vomiting since onset of pain yesterday. She also reports 3-4 episodes of diarrhea. She denies any bloody stools or hematemesis. She states the pain is sharp and constant. She states she gets some relief with a heating pack. She denies any aggravating factors. She denies any fevers or chills. She denies chest pain shortness of breath and difficulty urinating. Patient is at roughly 19 weeks gestation, due date by early ultrasound 02/16/19. She does report vaginal discharge and is "unsure" if she has a pelvic infection or STD. Past Medical History: Negative Past Surgical History: Cholecystectomy Social History: Occasional marijuana. Denies tobacco and alcohol Family History: Reviewed and noncontributory for presenting illness Allergies: Reviewed, see documented allergy list. REVIEW OF SYSTEMS: CONSTITUTIONAL : No fever No chills No diaphoresis No recent illness EENT: No vision changes No congestion No sore throat CARDIOVASCULAR: No chest pain No palpitations RESPIRATORY: No shortness of breath No cough No difficulty breathing GASTROINTESTINAL: abdominal pain nausea vomiting diarrhea GENITOURINARY: Vaginal discharge No dysuria No hematuria No difficulty urinating MUSCULOSKELETAL: No back pain No leg pain No arm pain SKIN: No rashes No lesions LYMPHATIC: No swollen, enlarged glands. NEUROLOGICAL: No lightheadedness No headache No weakness No paresthesias PSYCHIATRIC: No anxiety No depression PHYSICAL EXAMINATION: Vital signs reviewed, nursing noted reviewed. GENERAL: Well-appearing, well-nourished and in no acute distress. HEAD: Atraumatic, normocephalic. EYES: Eyes appear normal, extraocular movements intact, sclera anicteric, conjunctiva are normal. ENT: nares patent, oropharynx clear without exudates. Moist mucous membranes. NECK: Normal range of motion, supple without lymphadenopathy LUNGS: Breath sounds clear to auscultation bilaterally and equal. No wheezes rales or rhonchi. HEART: Regular rate and rhythm without murmurs ABDOMEN: Soft, left upper and lower quadrant tenderness, normoactive bowel sounds. Uterus palpated just inferior to umbilicus, soft, nontender. No rebound, guarding, or rigidity. No masses appreciated. Pelvic exam: Copious frothy white vaginal discharge, cervical motion tenderness, bilateral adnexal tenderness with no masses, no vaginal bleeding, no external lesions EXTREMITIES: Nontender, good range of motion, no pitting or edema. NEUROLOGICAL: No focal neurological deficits. Moves all extremities spontaneously Motor and sensory grossly intact on exam. PSYCH: Agitated, poor eye contact, fidgeting SKIN: Warm, Dry, normal turgor, no rashes or lesions noted on exposed skin (RADHA JONES) - Related Data Allergies/Adverse Reactions: No Known Allergies Allergy (Verified 09/26/18 15:01) Past Medical History - General Information source: Patient - Social History Smoking Status: Former Smoker Drug Abuse: Marijuana Family History: Reviewed & Not Pertinent Patient has suicidal ideation: No Patient has homicidal ideation: No Endocrine Medical History: Denies: Hx Diabetes Mellitus Type 1, Hx Diabetes Mellitus Type 2 Renal/ Medical History: Denies: Hx Peritoneal Dialysis Psychiatric Medical History: Reports: Hx Bipolar Disorder, Hx Depression Past Surgical History: Reports: Hx Cholecystectomy - lap harlan in 2016. Denies: Hx Appendectomy - Immunizations Hx Diphtheria, Pertussis, Tetanus Vaccination: - Unknown <RADHA JONES - Last Filed: 09/29/18 07:01> - Vital signs Vitals: Temp Pulse Resp BP Pulse Ox 98.2 F 87 20 117/68 97 09/26/18 15:04 09/26/18 15:04 09/26/18 15:04 09/26/18 15:04 09/26/18 15:04 Course - Laboratory Result Diagrams: 09/26/18 16:27 09/26/18 16:27 <TERESITA WATSON - Last Filed: 09/27/18 00:37> - Laboratory Result Diagrams: 09/26/18 16:27 09/26/18 16:27 <JONES,RADHA A - Last Filed: 09/29/18 07:01> - Re-evaluation Re-evalutation: 09/27/18 00:32 Patient was placed for discharge by Dr. Jones. Dr. Jones since left and now the patient is requesting more pain medicine and says she does not want to go home. I talked her at length and informed her that she was offered admission earlier but refused. Patient says this is not true. I reviewed her records and have actually talked her once in the past when seeing her with the nurse practitioner. Patient has presented several times with similar presentations. She was even admitted once back in July because of this recurring abdominal pain. Her presentations are very similar every time where she has recurrent pain and is usually found sleeping but when awoken she starts shaking and saying that she has intractable pain and feels unwell. Vital signs usually remain normal. Reading her previous discharge summary she told the OB doctor Dr. Elizabeth that she was having bladder spasms and that she wanted pain medicine. The OB doctor did not feel that further opiate pain medicine was appropriate. According to Dr. Elizabeth's note she then said "if it means me getting more morphine than Hell yeah". I do not doubt that she has some underlying psychi atric component that causes recurrent abdominal pain and vomiting. She has been seen by psychiatry in the past. In review of the previous psychiatric note from July they said that she exhibits cluster B personality traits. She is expressing similar traits on my reevaluation of her today. I again do not doubt that she has some nausea and vomiting today however I do think some of this could be psychiatric related. She she has received IV fluids and she actually has a bag of Palacio's in the room with her currently and has not had any recent recurrence of vomiting. She is not actively vomiting. When she is sleeping or resting she does not appear to be any pain. When awoken she imme diately starts thrashing about the bed and it seems very voluntary and this is very consistent with her previous records and notes. At this time I did not think it is appropriate to give the patient any further opiate medications. This is based on my current exam of her now and her previous admissions and previous notes from her previous evaluations for the same symptoms. I informed her that we would let her go home with outpatient prescriptions that have been written by Dr. Jones. I informed her that if after 24 hours she is still having pain or any recurrent vomiting that she is to return to the ER. Patient became upset and said to me "I do not come to the hospital for pain medicine because that is white person [facility]". I informed her that I am not accusing her of coming here strictly for pain medicine. I informed her that I do not think that further opiate pain medicine is appropriate for her or her and that is why I am not further giving it. At this time her vital signs are stable and I feel she is appropriate for discharge home as I do not expect a life-threatening cause of her abdominal pain. I encouraged her to return to the ER in 24 hours if she still having abdominal pain for reevaluation. Dictation of this chart was performed using voice recognition software; therefore, there may be some unintended grammatical errors. 09/27/18 00:35 09/27/18 00:38 (TERESITA WATSON) 09/26/18 16:51 Vitals reviewed. Nursing notes reviewed. Patient appears uncomfortable and received morphine in triage. She is requesting that I just let her rest. I explained that without knowing why she has presented to the emergency room I unable to evaluate her and treat her. She at that time allowed me to perform a physical exam and continue our initial conversation. Patient had pelvic ultrasound performed which was limited because she terminated the exam early. Her ovaries were not visualized. She does have a single intrauterine gestation that is well-appearing. 09/26/18 19:11 Patient was reevaluated and was still having pain, she was given a dose of Tylenol. She did have symptom medic improvement. When I went in to reevaluate her she was asleep. Her pelvic cultures show no gonorrhea or chlamydia. She does have BV which will be treated with Flagyl. Patient has a mild leukocytosis likely secondary to . I have recommended that she return to ultrasound so we can further evaluate her ovaries, patient does not want to have this ultrasound performed. She understands that without visualizing the ovaries we cannot fully rule out torsion or tubo-ovarian abscess. Patient still refusing ultrasound. Urinalysis is still pending. Laboratory 09/26/18 09/26/18 09/26/18 16:27 16:27 17:11 WBC 16.7 H RBC 4.55 Hgb 13.4 Hct 38.9 MCV 86 MCH 29.5 MCHC 34.4 RDW 13.3 Plt Count 302 Seg Neutrophils % 83.1 H Lymphocytes % 11.6 L Monocytes % 4.1 Eosinophils % 0.3 Basophils % 0.9 Absolute Neutrophils 13.9 H Absolute Lymphocytes 2.0 Absolute Monocytes 0.7 Absolute Eosinophils 0.0 Absolute Basophils 0.1 Sodium 135.1 L Potassium 4.1 Chloride 104 Carbon Dioxide 23 Anion Gap 8 BUN 10 Creatinine 0.58 Est GFR ( Amer) > 60 Est GFR (Non-Af Amer) > 60 Glucose 91 Calcium 9.6 Total Bilirubin 0.7 Direct Bilirubin 0.2 Neonat Total Bilirubin Not Reportable Neonat Direct Bilirubin Not Reportable Neonat Indirect Bili Not Reportable AST 16 ALT 15 Alkaline Phosphatase 69 Total Protein 7.0 Albumin 4.2 Lipase 32.7 Beta HCG, Quant 04836.00 H Total Beta HCG POSITIVE Bacteria (Wet Prep) Trichomonas (Wet Prep) Vaginal WBC Vaginal RBC Vaginal Yeast Chlamydia DNA (PCR) NOT DETECTED N.gonorrhoeae DNA (PCR) NOT DETECTED 09/26/18 17:11 WBC RBC Hgb Hct MCV MCH MCHC RDW Plt Count Seg Neutrophils % Lymphocytes % Monocytes % Eosinophils % Basophils % Absolute Neutrophils Absolute Lymphocytes Absolute Monocytes Absolute Eosinophils Absolute Basophils Sodium Potassium Chloride Carbon Dioxide Anion Gap BUN Creatinine Est GFR ( Amer) Est GFR (Non-Af Amer) Glucose Calcium Total Bilirubin Direct Bilirubin Neonat Total Bilirubin Neonat Direct Bilirubin Neonat Indirect Bili AST ALT Alkaline Phosphatase Total Protein Albumin Lipase Beta HCG, Quant Total Beta HCG Bacteria (Wet Prep) 3+ BACTERIA SEEN Trichomonas (Wet Prep) NO TRICHOMONAS SEEN Vaginal WBC 1+ WBCS SEEN Vaginal RBC RARE RBCS SEEN Vaginal Yeast NO YEAST SEEN Chlamydia DNA (PCR) N.gonorrhoeae DNA (PCR) Obstetrics Ultrasound 09/26/18 15:20 IMPRESSION: LIVING INTRAUTERINE . Limited visualization of the heart. Attention on follow-up exam. Trimester of : Second trimester - 13 weeks 1 day to 27 weeks 6 days. 09/26/18 19:38 Patient reevaluated and is still complaining of pain in her abdomen. She will be given another small dose of morphine. I did explain the risks of strong pain medications in which she understands and still wants the pain medicine . I still do not have a urine sample on this patient. She is refusing to stand up stating that her pain is too bad. I told her that if she is in this much discomfort she should be admitted to the hospital so they could monitor her pain and possibly get the ultrasound which we are still unable to achieve. Patient does not wish to have the ultrasound done. She does not wish to be admitted to the hospital. She states she will attempt to give us a urine sample on a bedpan. She states that her ride is on the way and she will get up when he gets here. 09/26/18 20:34 Patient is now agreeing to obtain the remainder of her ultrasound, I discussed this with the ultrasound department and they state that if she gets a limited pelvic ultrasound they can get views of her adnexa. Patient's urinalysis does show likely UTI which she will also be given antibiotics for it. Patient did have her ultrasound completed. Because of an issue with radiology results being crossed over to the radiologist there is a delay in the ultrasound being read. Patient's care was signed out to Dr. Watson pending ultrasound results. Plan to discharge home with normal ultrasound. I did discuss the ultrasound with the accounting technician who performed the exam who did not see any abnormal ovarian flow or other acute process. Dr. Watson will follow with final ultrasound reading prior to discharging patient. (RADHA JONES) - Vital Signs Vital signs: Temp Pulse Resp BP Pulse Ox 98.1 F 78 18 109/69 98 09/26/18 20:06 09/26/18 20:06 09/26/18 20:06 09/26/18 20:06 09/26/18 20:06 - Laboratory Laboratory results interpreted by me: 09/26/18 09/26/18 09/26/18 16:27 16:27 19:45 WBC 16.7 H Seg Neutrophils % 83.1 H Lymphocytes % 11.6 L Absolute Neutrophils 13.9 H Sodium 135.1 L Beta HCG, Quant 94548.00 H Urine Protein 30 H Urine Ketones 80 H Urine Blood SMALL H Ur Leukocyte Esterase TRACE H Discharge <TERESITA WATSON - Last Filed: 09/27/18 00:37> <RADHA JONES - Last Filed: 09/29/18 07:01> - Discharge Clinical Impression: Abdominal pain affecting , Bacterial vaginosis UTI (urinary tract infection) Qualifiers: Urinary tract infection type: site unspecified Hematuria presence: with hematuria Qualified Code(s): N39.0 - Urinary tract infection, site not specified Condition: Stable Disposition: HOME, SELF-CARE Instructions: Urinary Tract Infection ([facility]), Vaginosis, Bacterial ([facility]) Additional Instructions: Please return to the emergency department if you have any worsening, or concern of your symptoms. Please return to the emergency department if you develop chest pain, difficulty breathing, severe abdominal pain, or ongoing vomiting. Please follow-up with your primary care physician in 2-3 days and any other recommended physicians. If prescribed, take all medications as directed. If you have any questions or concerns do not hesitate to return the emergency department for evaluation. Prescriptions: Metronidazole [Flagyl 500 mg Tablet] 500 mg PO BID #14 tablet Nitrofurantoin Macrocrystal [Macrodantin] 100 mg PO BID #10 capsule Referrals: MAYELIN LOPEZ MD [Primary Care Provider] - Follow up as needed [facility] [Provider Group] - Follow up tomorrow
[2018-09-26 16:55] LABS: ALANINE AMINOTRANSFERASE 15 U/L (9-52); ALBUMIN 4.2 g/dL (3.5-5.0); ALKALINE PHOSPHATASE 69 U/L (38-126); ANION GAP 8 (5-19); ASPARTATE AMINO TRANSFERASE 16 U/L (14-36); BILIRUBIN,DIRECT 0.2 mg/dL (0.0-0.4); BILIRUBIN,TOTAL 0.7 mg/dL (0.2-1.3); BLOOD UREA NITROGEN 10 mg/dL (7-20); CALCIUM 9.6 mg/dL (8.4-10.2); CARBON DIOXIDE 23 mmol/L (22-30); CHLORIDE 104 mmol/L (98-107); GLUCOSE 91 mg/dL (75-110); LIPASE 32.7 U/L (23-300); POTASSIUM 4.1 mmol/L (3.6-5.0); SODIUM 135.1 mmol/L (137-145)
[2018-09-26 17:29] LABS: T.VAGINALIS (WET MOUNT) NO TRICHOMONAS SEEN
[2018-09-26 19:02] LABS: CHLAM PCR NOT DETECTED (NOT DETECT); GON PCR NOT DETECTED (NOT DETECT)
[2018-09-26] MEDS ORDERED: METRONIDAZOLE 500 MG TABLET PO ONE (19:06)
[2018-09-26 20:25] VITALS: BP 109/69
[2018-09-26 20:33] LABS: APPEARANCE,URINE CLOUDY; BILIRUBIN,URINE NEGATIVE (NEGATIVE); COLOR,URINE YELLOW; GLUCOSE, URINE NEGATIVE (NEGATIVE); KETONES,URINE 80 mg/dL (NEGATIVE); LEUKOCYTE ESTERASE,URINE TRACE (NEGATIVE); NITRITE,URINE NEGATIVE (NEGATIVE); PROTEIN,URINE 30 mg/dL (NEGATIVE); URINE SPECIFIC GRAVITY 1.025; UROBILINOGEN,URINE NEGATIVE mg/dL (<2.0)
--- NOTE | 2018-09-27 00:22 | RADIOLOGY REPORT (SQ) ---
EXAM DESCRIPTION: US PELVIS LIMITED COMPLETED DATE/TME: 09/26/2018 20:15 CLINICAL HISTORY: 23 years, Female, need adnexal views, pelvic pain COMPARISON: None. TECHNIQUE: Transverse and longitudinal transabdominal sonographic images of the adnexal regions in a second/third trimester patient. A dedicated ultrasound was not performed at this time. LIMITATIONS: None. FINDINGS: The right ovary measures 3.8 x 2.2 x 2.1 cm, the left 3.1 x 2.8 x 1.7 cm. Doppler and spectral analysis with color flow was utilized. Arterial and venous flow to both ovaries. No adnexal cyst or mass. No free fluid. IMPRESSION: Unremarkable appearance to the adnexal regions bilaterally as above copyright 2010 [employer]- All Rights Reserved
[2018-09-27 12:18] LABS: YEAST (WET MOUNT) NO YEAST SEEN
[2018-09-27 12:19] LABS: BACTERIA (WET MOUNT) 3+ BACTERIA SEEN; RBCS (WET MOUNT) RARE RBCS SEEN; WBCS (WET MOUNT) 1+ WBCS SEEN
== END 2018-09-27 00:30 | disposition home or self-care (01) ==
LOC: ER 15:00
DX: O23.592 Infection of other part of genital tract in pregnancy, second trimester (principal); B96.89 Other specified bacterial agents as the cause of diseases classified elsewhere; O23.42 Unspecified infection of urinary tract in pregnancy, second trimester; O26.892 Other specified pregnancy related conditions, second trimester; R10.32 Left lower quadrant pain; R10.12 Left upper quadrant pain; R19.7 Diarrhea, unspecified; O21.9 Vomiting of pregnancy, unspecified; O99.322 Drug use complicating pregnancy, second trimester; F12.10 Cannabis abuse, uncomplicated; Z3A.00 Weeks of gestation of pregnancy not specified; Z87.891 Personal history of nicotine dependence; Z90.49 Acquired absence of other specified parts of digestive tract
CPT/HCPCS: 96376; 99284; 96361; 96374; 36415; 87086; 87210; 84702; 83690; 85025; 80053; 81001; 87491; 87591; 76805; 76857; 93976; J2270; J3490; J7030

== ENCOUNTER 2018-12-22 11:07 | Outpatient (CLI) | payer MEDICAID ==
[2018-12-22] MEDS: RINGERS SOLUTION,LACTATED 1,000 ML IV PRN ×2 (12:25→14:00)
[2018-12-22] MEDS ORDERED: ONDANSETRON HCL INJ/PF 4 MG/2 ML SDV ONE (12:40)
[2018-12-22] MEDS ORDERED: ONDANSETRON HCL INJ/PF 4 MG/2 ML SDV IV ONE (12:40)
[2018-12-22 13:08] LABS: APPEARANCE,URINE SLIGHTLY-CLOUDY; BILIRUBIN,URINE NEGATIVE (NEGATIVE); COLOR,URINE YELLOW; GLUCOSE, URINE NEGATIVE (NEGATIVE); KETONES,URINE 20 mg/dL (NEGATIVE); LEUKOCYTE ESTERASE,URINE TRACE (NEGATIVE); NITRITE,URINE NEGATIVE (NEGATIVE); PROTEIN,URINE NEGATIVE (NEGATIVE); URINE SPECIFIC GRAVITY 1.021
[2018-12-22 13:22] LABS: URINE AMPHETAMINES SCREEN NEGATIVE; URINE BARBITURATES SCREEN NEGATIVE; URINE BENZODIAZEPINES SCREEN NEGATIVE; URINE COCAINE SCREEN NEGATIVE; URINE METHADONE SCREEN NEGATIVE; URINE PHENCYCLIDINE SCREEN NEGATIVE
[2018-12-22 13:27] LABS: URINE MARIJUANA (THC) SCREEN UNCONFIRMED POSITIVE
[2018-12-22 13:41] LABS: ABSOLUTE BASOPHILS # (AUTO) 0.1 10^3/uL (0.0-0.2); ABSOLUTE EOSINOPHILS # (AUTO) 0.1 10^3/uL (0.0-0.6); ABSOLUTE LYMPHOCYTES (AUTO) 2.2 10^3/uL (0.5-4.7); ABSOLUTE MONOCYTES (AUTO) 0.9 10^3/uL (0.1-1.4); ABSOLUTE NEUT (AUTO) 7.6 10^3/uL (1.7-8.2); BASOPHILS % (AUTO) 0.6 % (0-2); EOSINOPHILS % (AUTO) 0.6 % (0-6); HEMATOCRIT 32.5 % (36.0-47.0); HEMOGLOBIN 10.8 g/dL (12.0-15.5); LYMPHOCYTES % (AUTO) 20.2 % (13-45); MEAN CORPUSCULAR HGB CONC 33.1 g/dL (32.0-36.0); MEAN CORPUSCULAR VOLUME 85 fl (80-97); MONOCYTES % (AUTO) 8.4 % (3-13); PLATELET COUNT 192 10^3/uL (150-450); RED BLOOD COUNT 3.84 10^6/uL (3.72-5.28); RED CELL DISTRIBUTION WIDTH 13.4 % (11.5-14.0); SEGMENTED NEUTROPHILS % (AUTO) 70.2 % (42-78); TOTAL CELLS COUNTED % (AUTO) 100 %; WHITE BLOOD COUNT 10.8 10^3/uL (4.0-10.5)
[2018-12-22 14:04] LABS: ANION GAP 6 (5-19)
[2018-12-22] MEDS ORDERED: HYDROXYZINE PAMOATE 50 MG CAPSULE ONE (14:18)
[2018-12-22] MEDS ORDERED: HYDROXYZINE PAMOATE 50 MG CAPSULE PO ONE (14:19)
[2018-12-22 14:29] LABS: ALANINE AMINOTRANSFERASE 18 U/L (9-52); ALBUMIN 3.1 g/dL (3.5-5.0); ALKALINE PHOSPHATASE 125 U/L (38-126); AMYLASE 66 U/L (30-110); ASPARTATE AMINO TRANSFERASE 13 U/L (14-36); BILIRUBIN,DIRECT 0.2 mg/dL (0.0-0.4); BILIRUBIN,TOTAL 0.7 mg/dL (0.2-1.3); BLOOD UREA NITROGEN 7 mg/dL (7-20); CARBON DIOXIDE 22 mmol/L (22-30); CHLORIDE 106 mmol/L (98-107); POTASSIUM 3.8 mmol/L (3.6-5.0); SODIUM 134.3 mmol/L (137-145); TOTAL PROTEIN 5.9 g/dL (6.3-8.2)
[2018-12-22 14:30] LABS: GLUCOSE 68 mg/dL (75-110)
[2018-12-22] MEDS ORDERED: DIPHENHYDRAMINE HCL 50 MG/ML VIAL ONE (14:47)
[2018-12-22] MEDS ORDERED: METOCLOPRAMIDE HCL INJ/PF 10 MG/2 ML SDV IV ONE (14:49)
[2018-12-22] MEDS ORDERED: DIPHENHYDRAMINE HCL 50 MG/ML VIAL IV ONE (14:49)
[2018-12-22] MEDS ORDERED: METOCLOPRAMIDE HCL INJ/PF 10 MG/2 ML SDV ONE (14:51)
--- NOTE | 2018-12-22 15:06 | Non Stress Test Report ---
Non Stress Test Datetime Report Generated by CPN: 12/22/2018 15:06 DEMOGRAPHIC Test Number: 1 EGA NST: 32.0 INDICATION Indication for Study: Ordered by Provider URINE RESULTS Urine Protein, NST: Negative Urine Ketones - NST: Positive Urine Glucose - NST: Negative Urine Blood - NST: Negative MONITORING Monitor Explained: Monitor Explained; Test Explained; Patient Verbalized Understanding Time on Monitor: 12/22/2018 12:52 Time off Monitor: 12/22/2018 13:20 NST Duration: 28 NST INTERVENTIONS NST Interventions: PO Hydration; IV Fluids; Reposition Patient Physician Notified NST: C. Riggs, CNM BABY A: [id number] BABY A Movement : Present Contraction Frequency : None FHR Baseline : 135 Accelerations : 15X15 Decelerations : None Variability : Moderate 6-25bpm NST Review: Meets Criteria for Reactive NST NST Results: Reactive NST REPORT Report Trigger: Send Report
== END 2018-12-22 15:18 | disposition left against medical advice (07) ==
LOC: LC 11:07
PROVIDERS: ATTEND Obstetrics & Gynecology
PROC: 4A1HXCZ Monitoring of Products of Conception, Cardiac Rate, External Approach (ICD-10-PCS; principal; 2018-12-22)
DX: O47.03 False labor before 37 completed weeks of gestation, third trimester (principal); Z3A.32 32 weeks gestation of pregnancy
CPT/HCPCS: 59025; 94760; 36415; 82150; 83690; 85025; 80053; 81001; 80307; G0480 ×2; J1200; J2765; J2405; 80349

== ENCOUNTER 2018-12-23 09:05 | Outpatient (CLI) | payer MEDICAID ==
[2018-12-23 09:45] LABS: APPEARANCE,URINE CLOUDY; BILIRUBIN,URINE NEGATIVE (NEGATIVE); COLOR,URINE YELLOW; GLUCOSE, URINE NEGATIVE (NEGATIVE); KETONES,URINE 80 mg/dL (NEGATIVE); LEUKOCYTE ESTERASE,URINE LARGE (NEGATIVE); NITRITE,URINE NEGATIVE (NEGATIVE); PROTEIN,URINE 30 mg/dL (NEGATIVE); URINE SPECIFIC GRAVITY 1.024; UROBILINOGEN,URINE NEGATIVE mg/dL (<2.0)
[2018-12-23 09:58] LABS: URINE AMPHETAMINES SCREEN NEGATIVE; URINE BARBITURATES SCREEN NEGATIVE; URINE BENZODIAZEPINES SCREEN NEGATIVE; URINE METHADONE SCREEN NEGATIVE; URINE PHENCYCLIDINE SCREEN NEGATIVE
[2018-12-23 10:03] LABS: URINE COCAINE SCREEN NEGATIVE
[2018-12-23 10:04] LABS: URINE MARIJUANA (THC) SCREEN UNCONFIRMED POSITIVE
[2018-12-23 10:11] LABS: BACTERIA (WET MOUNT) 4+ BACTERIA SEEN; EPITHELIALS (WET MOUNT) 4+ EPITHELIALS SEEN; RBCS (WET MOUNT) 1+ RBCS SEEN; T.VAGINALIS (WET MOUNT) NO TRICHOMONAS SEEN; WBCS (WET MOUNT) 3+ WBCS SEEN; YEAST (WET MOUNT) NO YEAST SEEN
[2018-12-23] MEDS ORDERED: HYDROXYZINE HCL INJ 50 MG/1 ML VIAL IM ONE (10:36)
[2018-12-23] MEDS ORDERED: ACETAMINOPHEN WITH CODEINE #3 TABLET PO ONE (10:36)
[2018-12-23] MEDS ORDERED: RINGERS SOLUTION,LACTATED 1,000 ML IV ONE (10:39)
--- NOTE | 2018-12-23 10:58 | RADIOLOGY REPORT (SQ) ---
EXAM DESCRIPTION: U/S OB LIMITED COMPLETED DATE/TIME: 12/23/2018 10:46 am REASON FOR STUDY: r/o labor COMPARISON: None. TECHNIQUE: Limited transvaginal grayscale ultrasound for evaluation of specific requested obstetrica l parameters. LIMITATIONS: None. FINDINGS: CERVICAL LENGTH: 3.0 cm. Closed. KD: 12 cm. FHR: 139 beats per minute. PRESENTATION: Cephalic. PLACENTA: Fundal ANATOMY: Not assessed OTHER: No other significant findings. IMPRESSION: LIMITED OBSTETRICAL ULTRASOUND WITH MEASURED PARAMETERS DELINEATED ABOVE. Trimester of : Third trimester - 28 weeks to delivery. TECHNICAL DOCUMENTATION: JOB ID: [id number] [employer]- All Rights Reserved Reading location - IP/workstation name: [email or web address]
[2018-12-23] MEDS ORDERED: CEFTRIAXONE INJ 1000 MG VIAL ONE (11:05)
[2018-12-23] MEDS ORDERED: HYDROXYZINE PAMOATE 50 MG CAPSULE ONE (11:05)
[2018-12-23] MEDS ORDERED: ACETAMINOPHEN WITH CODEINE #3 TABLET ONE (11:05)
[2018-12-23] MEDS ORDERED: PROMETHAZINE HCL INJ 25 MG/1 ML VIAL IV ONE (11:08)
[2018-12-23] MEDS ORDERED: PROMETHAZINE HCL INJ 25 MG/1 ML VIAL ONE ×2 (11:12→11:33)
[2018-12-23 11:42] LABS: CHLAM PCR NOT DETECTED (NOT DETECT); GON PCR NOT DETECTED (NOT DETECT)
--- NOTE | 2018-12-23 13:04 | PDOC PROGRESS REPORT ---
Subjective Progress Note for:: 12/23/18 Subjective:: Pt here for lower abd pain. Was sent here yesterday from [facility]. She apparently refused sonogram yesterday and left the hospital. She presents to L&D in a wheelchair, crying, then walks while vigorously bouncing her gravid uterus to RM 6. Pt is crying and vocalizing severe pain. She is unable to be specific on where the pain is, just noting that it is in her lower abd. Through the course of her visit today, she was able to tell me that she was having sharp pain in lower pelvis that wraps around to her back. Pain is better when her hips are flexed and worse when she stretches out her legs. She is also c/o pelvic pressure and rectal pressure. She denies bleeding, contractions, leaking fluid. Reason For Visit: LABOR CHECK Physical Exam - Physical Exam Vital Signs: Intake & Output 12/22/18 12/23/18 12/24/18 06:59 06:59 06:59 Weight 84.9 kg General appearance: PRESENT: severe distress Head exam: PRESENT: normocephalic Neurological exam: PRESENT: altered Psychiatric exam: PRESENT: agitated, anxious - Obstetrical Exam External Genitalia: normal Vagina: normal Dilation (cm): 1 - Cervical length per Rad 3.0cm Effacement (%): 25 Station: -2 Tender: No - Round ligaments tender bilaterally, sharp pain. Uterus is soft. Trail neg Adhexa: normal Result Laboratory Results: 12/23/18 09:18 Urine Color YELLOW Urine Appearance CLOUDY Urine pH 5.0 Ur Specific [place] 1.024 Urine Protein 30 H Urine Glucose (UA) NEGATIVE Urine Ketones 80 H Urine Blood NEGATIVE Urine Nitrite NEGATIVE Ur Leukocyte Esterase LARGE H Urine WBC (Auto) 26 Urine RBC (Auto) 5 Heartbeat/NST: Reactive Impressions: Obstetrics Ultrasound 12/23/18 09:14 IMPRESSION: LIMITED OBSTETRICAL ULTRASOUND WITH MEASURED PARAMETERS DELINEATED ABOVE. Trimester of : Third trimester - 28 weeks to delivery. Assessment & Plan - Diagnosis (1) Round ligament pain Is this a current diagnosis for this admission?: Yes (2) Vomiting during Is this a current diagnosis for this admission?: Yes - Time Time Spent with patient: 15-24 minutes Anticipated discharge: Home - Plan Summary Plan Summary: Rx for Macrobid to treat potential UTI, culture pending--, RX maternity belt, Rx phenergan, rx Tylenol 3 #14.
--- NOTE | 2018-12-23 13:46 | Non Stress Test Report ---
Non Stress Test Datetime Report Generated by CPN: 12/23/2018 13:46 DEMOGRAPHIC EGA NST: 32.1 INDICATION Indication for Study: Ordered by Provider MONITORING Monitor Explained: Monitor Explained; Test Explained Time on Monitor: 12/23/2018 10:34 Time off Monitor: 12/23/2018 10:58 NST Duration: 24 NST INTERVENTIONS NST Interventions: PO Hydration; For Biophysical Profile Physician Notified NST: K. Cueva CNM BABY A: [id number] BABY A Movement : Present Contraction Frequency : none FHR Baseline : 145 Accelerations : 15X15 Decelerations : None Variability : Moderate 6-25bpm NST Review: Meets Criteria for Reactive NST NST Review and Verified By : Roselia Dunbar RNC NST Results: Reactive NST REPORT Report Trigger: Send Report
[2018-12-24] MEDS ORDERED: CEFTRIAXONE SODIUM 1,000 MG in DEXTROSE 5%-WATER 50 ML IV SCH (10:00)
[2018-12-24] MEDS ORDERED: CEFTRIAXONE 1 GM/D5W RTU 1 GM/50 ML RTUPB IV SCH ×2 (10:00)
== END 2018-12-23 13:10 | disposition home or self-care (01) ==
LOC: LC 09:05
PROVIDERS: ATTEND Obstetrics & Gynecology
PROC: 4A1HXCZ Monitoring of Products of Conception, Cardiac Rate, External Approach (ICD-10-PCS; principal; 2018-12-23)
DX: O47.03 False labor before 37 completed weeks of gestation, third trimester (principal); Z3A.32 32 weeks gestation of pregnancy
CPT/HCPCS: 59025; 87086; 87210; 87088; 81001; 80307; 87491; 87591; 76815; J2550; J0696

== ENCOUNTER 2018-12-29 07:44 | Outpatient (CLI) | payer MEDICAID ==
[2018-12-29] MEDS ORDERED: ACETAMINOPHEN 325 MG TABLET ONE (08:03)
[2018-12-29] MEDS ORDERED: HYDROXYZINE PAMOATE 50 MG CAPSULE ONE (08:03)
[2018-12-29] MEDS ORDERED: ACETAMINOPHEN 325 MG TABLET PO PRN (08:10)
[2018-12-29] MEDS ORDERED: HYDROXYZINE PAMOATE 50 MG CAPSULE PO ONE (08:13)
[2018-12-29] MEDS ORDERED: MAG HYDROX/AL HYDROX/SIMETH SUSP 30 ML UDCUP ONE (10:30)
[2018-12-29] MEDS ORDERED: METOCLOPRAMIDE HCL INJ/PF 10 MG/2 ML SDV ONE (10:30)
[2018-12-29] MEDS ORDERED: LIDOCAINE 2% VISCOUS SOLN 20 ML UDCUP PO ONE (11:00)
[2018-12-29] MEDS ORDERED: METOCLOPRAMIDE HCL ORAL SOLN 10 MG/10 ML UDCUP PO ONE (11:00)
[2018-12-29] MEDS ORDERED: MAG HYDROX/AL HYDROX/SIMETH SUSP 30 ML UDCUP PO PRN (11:00)
--- NOTE | 2018-12-29 14:44 | Non Stress Test Report ---
Non Stress Test Datetime Report Generated by CPN: 12/29/2018 14:43 DEMOGRAPHIC EGA NST: 33.0 INDICATION Indication for Study: Ordered by Provider MONITORING Monitor Explained: Monitor Explained; Test Explained; Patient Verbalized Understanding Time on Monitor: 12/29/2018 08:18 Time off Monitor: 12/29/2018 08:40 NST Duration: 22 NST INTERVENTIONS NST Interventions: IV Fluids Physician Notified NST: C. Riggs CNM BABY A: [id number] BABY A Movement : Present Contraction Frequency : none FHR Baseline : 135 Accelerations : 15X15 Decelerations : None Variability : Moderate 6-25bpm NST Review: Meets Criteria for Reactive NST NST Review and Verified By : MARIANA Alfaro Results: Reactive NST REPORT Report Trigger: Send Report
== END 2018-12-29 11:57 | disposition home or self-care (01) ==
LOC: LC 07:44
PROVIDERS: ATTEND Obstetrics & Gynecology
PROC: 4A1HXCZ Monitoring of Products of Conception, Cardiac Rate, External Approach (ICD-10-PCS; principal; 2018-12-29)
DX: O47.03 False labor before 37 completed weeks of gestation, third trimester (principal); Z3A.33 33 weeks gestation of pregnancy
CPT/HCPCS: 59025; J3490 ×4; J2765

== ENCOUNTER 2019-01-31 06:03 | Inpatient (IN) | payer MEDICAID ==
[2019-01-31] MEDS ORDERED: LIDOCAINE 1% INJ-PF (10 MG/ML) 30 ML SDV ONE (06:29)
[2019-01-31] MEDS ORDERED: MISOPROSTOL 0.2 MG TABLET ONE ×2 (06:29→15:12)
[2019-01-31] MEDS ORDERED: PENICILLIN G-K 5 MILLION UNIT VIAL ONE ×2 (06:29→10:25)
[2019-01-31] MEDS ORDERED: OXYTOCIN/NORMAL SALINE 20 UNIT/1,000 ML RTUINJ ONE ×2 (06:29→11:26)
[2019-01-31] MEDS ORDERED: OXYTOCIN 10 UNIT/ML VIAL ONE (06:29)
[2019-01-31] MEDS ORDERED: RINGERS SOLUTION,LACTATED 1,000 ML IV PRN (06:38)
[2019-01-31] MEDS ORDERED: PENICILLIN G POTASSIUM 5,000,000 UNIT in DEXTROSE 5%-WATER 100 ML IV ONE (06:38)
[2019-01-31] MEDS ORDERED: BUPIVACAINE HCL 0.25 % INJ/PF (2.5 MG/1 ML) 30 ML VIAL ONE ×2 (07:00→12:09)
[2019-01-31] MEDS ORDERED: EPHEDRINE SULFATE INJ 50 MG/1 ML AMPULE ONE (07:00)
[2019-01-31] MEDS ORDERED: FENTANYL/BUPIVACAINE/NS/PF 300 MCG/150 ML RTUINJ EPI ONE (07:00)
[2019-01-31 08:05] LABS: HEMATOCRIT 32.5 % (36.0-47.0); HEMOGLOBIN 10.6 g/dL (12.0-15.5); MEAN CORPUSCULAR HEMOGLOBIN 26.6 pg (27.0-33.4); MEAN CORPUSCULAR HGB CONC 32.6 g/dL (32.0-36.0); MEAN CORPUSCULAR VOLUME 82 fl (80-97); PLATELET COUNT 186 10^3/uL (150-450); RED BLOOD COUNT 3.99 10^6/uL (3.72-5.28); RED CELL DISTRIBUTION WIDTH 14.9 % (11.5-14.0); WHITE BLOOD COUNT 11.4 10^3/uL (4.0-10.5)
[2019-01-31 08:07] LABS: APPEARANCE,URINE CLEAR; BILIRUBIN,URINE NEGATIVE (NEGATIVE); COLOR,URINE STRAW; GLUCOSE, URINE NEGATIVE (NEGATIVE); KETONES,URINE NEGATIVE (NEGATIVE); LEUKOCYTE ESTERASE,URINE NEGATIVE (NEGATIVE); NITRITE,URINE NEGATIVE (NEGATIVE); PROTEIN,URINE NEGATIVE (NEGATIVE); URINE SPECIFIC GRAVITY 1.006; UROBILINOGEN,URINE NEGATIVE mg/dL (<2.0)
[2019-01-31 08:31] LABS: URINE AMPHETAMINES SCREEN NEGATIVE; URINE BARBITURATES SCREEN NEGATIVE; URINE COCAINE SCREEN NEGATIVE; URINE METHADONE SCREEN NEGATIVE; URINE PHENCYCLIDINE SCREEN NEGATIVE
[2019-01-31 08:40] LABS: ABSOLUTE LYMPHOCYTES# (MANUAL) 2.7 10^3/uL (0.5-4.7); ABSOLUTE MONOCYTES # (MANUAL) 0.8 10^3/uL (0.1-1.4); ABSOLUTE NEUTROPHILS# (MANUAL) 7.9 10^3/uL (1.7-8.2); BASOPHILS % (MANUAL) 0 % (0-2); EOSINOPHILS % (MANUAL) 0 % (0-6); LYMPHOCYTES % (MANUAL) 24 % (13-45); MONOCYTES % (MANUAL) 7 % (3-13); SEGMENTED NEUTROPHILS % (MAN) 69 % (42-78); TOTAL CELLS COUNTED 100
[2019-01-31 08:42] LABS: TOXIC GRANULATION SLIGHT; TOXIC VACUOLATION PRESENT
[2019-01-31 08:43] LABS: ANISOCYTOSIS SLIGHT; PLATELET CLUMPS PRESENT; PLATELET COMMENT ADEQUATE; PLATELET LARGE PRESENT; POLYCHROMASIA SLIGHT
[2019-01-31 09:20] LABS: URINE MARIJUANA (THC) SCREEN UNCONFIRMED POSITIVE
[2019-01-31] MEDS ORDERED: FAMOTIDINE INJ/PF 20 MG/2 ML SDV IV ONE ×2 (10:26→11:45)
--- NOTE | 2019-01-31 10:46 | Admission Physical ---
Datetime Report Generated by CPN: 01/31/2019 10:46 CURRENT ADMISSION Chief Complaint: Uterine Contractions Chief Complaint Other: labor since 4am no LOF Indication for Induction: Not Applicable Indication for Induction- Other: n/a Admit Impression : Active Labor Admit Plan: Admit to Unit; Initiate Labor Protocol Admit Plan- Other: Bipolar 1 +GBS ALLERGIES Medication Allergies: No Medication Allergies: No Known Allergies (01/31/2019) Latex: Unknown OBSTETRICAL HISTORY EDC: 02/16/2019 00:00 : 2 Para: 1 Gestational Diabetes: No Rh Sensitization: No Incompetent Cervix: No SHERICE: No Infertility: No ART Treatment: No Uterine Anomaly: No IUGR: No Hx Previous C/S: No Macrosomia: No Hx Loss/Stillborn: No PIH: No Hx : No Placenta Previa/Abruption: No Depression/PP Depression: No PTL/PROM: No Post Hemorrhage: No Obstetrical History Comments: G1: 37 weeks, IUGR G2: current SEE RECORDS Alcohol: No Marijuana : Yes Cocaine: No Other Illicit Drugs: No Cigarettes: Never Smoker. [id number] MEDICAL HISTORY Diabetes: No Blood Transfusion: No Pulmonary Disease (Asthma, TB): No Breast Disease: No Hypertension: No Wire Stretcher Surgery: No Heart Disease: No Hosp/Surgery: No Autoimmune Disorder: No Anesthetic Complications: No Kidney Disease: No Abnormal Pap Smear: No Neuro/Epilepsy: No Psychiatric Disorders: No Other Medical Diseases: No Hepatitis/Liver Disease: No Significant Family History: No Varicosities/Phlebitis: No Trauma/Violence : No Thyroid Dysfunction: No INFECTIOUS HISTORY Gonorrhea: No Genital Herpes: No Chlamydia: Yes Tuberculosis: No Syphilis: No Hepatitis: No HIV/AIDS Exposure: No Rash or Viral Illness: No HPV: No PHYSICAL EXAM General: Normal HEENT: Deferred Neurologic: Normal Thyroid: Deferred Heart: Normal Lungs: Normal Breast: Deferred Back: Deferred Abdomen: Normal Genitourinary Exam: Normal Extremities: Normal DTRs: Deferred Pelvic Type: Adequate Vital Signs: Reviewed VAGINAL EXAM Dilatation: 5 Effacement: 60 Station: -2 MEMBRANES Membranes: Ruptured Amniotic Fluid Color: Clear FETUS A EGA: 37.5 Monitoring: External US FHR- Baseline: 125 Accelerations: 15X15 Decelerations: None FHR Category: Category I Presentation: Vertex Admit Comment: wants epidural PLANS FOR LABOR AND DELIVERY Pain Management: Epidural Feeding Preference: Formula Benefit of Breast Feed Discussed: Yes Circumcision: Yes INFORMED CONSENT Assignment: Nikki George MD Signature: with User ID: [email or web address] : with User ID: [email or web address]
[2019-01-31] MEDS ORDERED: OXYTOCIN/NORMAL SALINE 20 UNIT/1,000 ML RTUINJ IV PRN ×3 (11:34→16:19)
[2019-01-31] MEDS ORDERED: LIDOCAINE 2% JELLY 5 ML TUBE ONE (11:48)
[2019-01-31] MEDS ORDERED: BENZOCAINE/MENTHOL AEROSOL SPRAY 56 ML ONE (11:48)
[2019-01-31] MEDS ORDERED: HYDROXYZINE PAMOATE 50 MG CAPSULE ONE (11:54)
[2019-01-31] MEDS ORDERED: IBUPROFEN 800 MG TABLET ONE (15:16)
[2019-01-31] MEDS ORDERED: MISOPROSTOL 0.2 MG TABLET PR ONE (15:25)
[2019-01-31] MEDS ORDERED: BENZOCAINE/MENTHOL AEROSOL SPRAY 56 ML TOP PRN (16:19)
[2019-01-31] MEDS ORDERED: MEASLES,MUMPS&RUBELLA VACC/PF 0.5 ML VIAL SUBCUT PRN (16:19)
[2019-01-31] MEDS ORDERED: ACETAMINOPHEN WITH CODEINE #3 TABLET PO PRN ×2 (16:19)
[2019-01-31] MEDS ORDERED: DIBUCAINE 1% OINTMENT 56 GM TP PRN (16:19)
[2019-01-31] MEDS ORDERED: DIPH/PERTUSS(ACELL)/TETANUS VAC/PF 0.5 ML SYR (>=10YO) IM PRN (16:19)
[2019-01-31] MEDS ORDERED: ZOLPIDEM TARTRATE 5 MG TABLET PO PRN (16:19)
[2019-01-31] MEDS: PENICILLIN G POTASSIUM 2,500,000 UNIT in DEXTROSE 5%-WATER 50 ML IV SCH (16:21)
[2019-01-31] MEDS: FERROUS SULFATE 325 MG TABLET PO SCH (18:20)
[2019-01-31] MEDS: DOCUSATE SODIUM 100 MG CAPSULE PO SCH (18:20)
[2019-01-31] MEDS ORDERED: FAMOTIDINE 20 MG TABLET PO ONE (20:04)
[2019-01-31] MEDS: IBUPROFEN 800 MG TABLET PO SCH (23:23)
[2019-02-01] MEDS: IBUPROFEN 800 MG TABLET PO SCH ×3 (05:47→21:00)
--- NOTE | 2019-02-01 09:15 | PDOC PROGRESS REPORT ---
Subjective-OB Progress Note for:: 02/01/19 Subjective: Doing well, family at BS, flat affect, bottle feeding Physical Exam (OB) Vital Signs: Temp Pulse Resp BP Pulse Ox 98.1 F 63 16 120/75 100 02/01/19 07:59 02/01/19 07:59 02/01/19 07:59 02/01/19 07:59 02/01/19 07:59 Intake & Output 01/31/19 02/01/19 02/02/19 06:59 06:59 06:59 Intake Total 300 Balance 300 Weight 87.7 kg - PIH/Pre-Eclampsia DTR's: 2 + Clonus: Negative Headache: Absent Epigastric Pain: No Visual Changes: No - Lochia Lochia Amount: Moderate 25-50 ml Lochia Color: Rubra/Red - Abdomen Description: Soft, Round Hernia Present: No Fundal Description: Firm Fundal Height: u/u - u/2 Objective-Diagnostic Laboratory: 01/31/19 07:39 Assessment and Plan(PN) - Assessment and Plan (1) Vaginal delivery Is this a current diagnosis for this admission?: Yes (2) Bipolar 1 disorder Is this a current diagnosis for this admission?: Yes - Time Spent with Patient Time with patient: Less than 15 minutes Medications reviewed and adjusted accordingly: Yes - Disposition Anticipated Discharge: Home Within: within 24 hours
[2019-02-01] MEDS: DOCUSATE SODIUM 100 MG CAPSULE PO SCH ×2 (10:01→17:45)
[2019-02-01] MEDS: PRENATAL VITAMIN W DHA CAPSULE PO SCH (10:02)
[2019-02-01] MEDS: SENNOSIDES/DOCUSATE 8.6-50 MG 1 EACH TABLET PO SCH (10:02)
[2019-02-01] MEDS: FERROUS SULFATE 325 MG TABLET PO SCH ×2 (10:02→17:45)
[2019-02-01 12:12] LABS: HEMATOCRIT 33.9 % (36.0-47.0); HEMOGLOBIN 10.8 g/dL (12.0-15.5); MEAN CORPUSCULAR VOLUME 81 fl (80-97); PLATELET COUNT 194 10^3/uL (150-450); RED BLOOD COUNT 4.17 10^6/uL (3.72-5.28); RED CELL DISTRIBUTION WIDTH 14.4 % (11.5-14.0); WHITE BLOOD COUNT 12.6 10^3/uL (4.0-10.5)
[2019-02-01] MEDS ORDERED: MAG HYDROX/AL HYDROX/SIMETH SUSP 30 ML UDCUP PO PRN (23:25)
[2019-02-02] MEDS: IBUPROFEN 800 MG TABLET PO SCH ×2 (05:18→13:27)
[2019-02-02 08:29] VITALS: BP 127/79
[2019-02-02] MEDS: PRENATAL VITAMIN W DHA CAPSULE PO SCH (10:07)
[2019-02-02] MEDS: DOCUSATE SODIUM 100 MG CAPSULE PO SCH ×2 (10:08→17:25)
[2019-02-02] MEDS: FERROUS SULFATE 325 MG TABLET PO SCH ×2 (10:08→17:25)
[2019-02-02] MEDS: SENNOSIDES/DOCUSATE 8.6-50 MG 1 EACH TABLET PO SCH (10:08)
--- NOTE | 2019-02-02 15:24 | PDOC DISCHARGE SUMMARY ---
Final Diagnosis Discharge Date: 02/02/19 - Final Diagnosis (1) Anemia complicating , third trimester Is this a current diagnosis for this admission?: Yes (2) Gestational hypertension Is this a current diagnosis for this admission?: Yes (3) High vaginal laceration during delivery, delivered Is this a current diagnosis for this admission?: Yes (4) Vaginal delivery Is this a current diagnosis for this admission?: Yes (5) Bipolar 1 disorder Is this a current diagnosis for this admission?: Yes Discharge Data - Discharge Medication Prescriptions: Ibuprofen [Motrin 800 mg Tablet] 800 mg PO Q8HP PRN #30 tablet PRN Reason: Docusate Sodium [Colace 100 mg Capsule] 100 mg PO BID #60 capsule Ferrous Sulfate [Feosol 325 mg Tablet] 325 mg PO BID #60 tablet Home Medications: Vit/Dha [ Multi + Dha Capsule] 1 cap PO DAILY 12/23/18 Docusate Sodium [Colace 100 mg Capsule] 100 mg PO BID #60 capsule 02/02/19 Ferrous Sulfate [Feosol 325 mg Tablet] 325 mg PO BID #60 tablet 02/02/19 Ibuprofen [Motrin 800 mg Tablet] 800 mg PO Q8HP PRN #30 tablet 02/02/19 Reason(s) for Admission: Onset of Labor Procedures: Ultrasound Intrapartum Procedure(s): Spontaneous Vaginal Delivery Complication(s): Laceration-Vaginal Laceration-Degree: 1st - Diagnosis Test Laboratory: Temp Pulse Resp BP Pulse Ox 98.0 F 63 16 127/79 H 100 02/02/19 12:52 02/02/19 12:52 02/02/19 12:52 02/02/19 12:52 02/02/19 12:52 01/31/19 01/31/19 02/01/19 06:11 07:39 09:48 RBC 3.99 Cancelled Hgb 10.6 L Cancelled Hct 32.5 L Cancelled Urine Opiates Screen NEGATIVE 02/01/19 11:30 RBC 4.17 Hgb 10.8 L Hct 33.9 L Urine Opiates Screen - Discharge information/Instructions Discharge Activity: Activity As Tolerated, Balance Activity w/Rest, No Lifting Over 10 Pounds, Pelvic Rest, No tub bath, Walk Frequently Discharge Diet: As Tolerated, Regular Disposition: HOME, SELF-CARE Follow up with: [facility] in: 2, Days - blood pressure check
--- NOTE | 2019-02-04 10:56 | Delivery Summary ---
Del Sum A-C Datetime Report Generated by CPN: 02/04/2019 10:56 DELIVERY PERSONNEL DELIVERY PERSONNEL: [id number] Delivery Doctor:: Zena Cueva CNM Nurse Yard Supervisor [employer] Certified:: Zena Cueva CNM Labor and Delivery Nurse:: Tamy Ambrose RNmilk delivery driver Nurse:: KRANTHI Eddy Nursery Nurse:: MARIANA Odom/SARAY: Carmen Ness, ST MATERNAL INFORMATION Delivery Anesthesia: Epidural Medications After Delivery: Pitocin Bolus-Please Comment Maternal Complications: Other Provider Comments: SVDVM over intact perineum. OA with short cord, vigorous, placed on mat abd. Mouth suctioned for excessive fluid/gurgling. Cord clamped x 2 cut per family member. Placenta intact via andujar. FF@U. Bleeding stabilized. LABOR SUMMARY EDC: 02/16/2019 00:00 No. Babies in Womb: 1 Attempted: No Labor Anesthesia: Epidural LABOR INFORMATION Reason for Induction: Not Applicable Onset of Labor: 01/31/2019 04:00 Complete Dilatation: 01/31/2019 13:21 Oxytocin: Augmentation Group B Beta Strep: positive Antibiotics # of Doses: 2 Name of Antibiotic Given: Penicillin Steroids Given: None Reason Steroids Not Administered: Not Applicable MEMBRANES Membranes Rupture Method: Artificial Rupture of Membranes: 01/31/2019 10:16 Length of Rupture (hr): 3.22 Amniotic Fluid Color: Clear Amniotic Fluid Amount: Small Amniotic Fluid Odor: Normal STAGES OF LABOR Stage 1 hr: 9 Stage 1 min: 21 Stage 2 hr: 0 Stage 2 min: 8 Stage 3 hr: 0 Stage 3 min: 6 Total Time in Labor hr: 9 Total Time in Labor min: 35 VAGINAL DELIVERY Episiotomy: None Laceration #3: Vaginal Laceration Extension #3: First Degree Laceration Repair: Yes Laceration Repair Note: chromic suture used x 1 stitch Sponge Count Correct: N/A CSECTION DELIVERY Primary Indication: N/A Secondary Indication: N/A CSection Incidence: N/A Labor: N/A Elective: N/A CSection Incision: N/A BABY A INFORMATION Delivery Date/Time: 01/31/2019 13:29 Method of Delivery: Vaginal Born in Route : No : N/A Forceps: N/A Vacuum Extraction: N/A Shoulder Dystocia : No PRESENTATION/POSITION BABY A Presentation: Cephalic Cephalic Presentation: Vertex Vertex Position: Right Occipital Anterior Breech Presentation: N/A PLACENTA INFORMATION BABY A Placenta Delivery Time : 01/31/2019 13:35 Placenta Method of Delivery: Spontaneous Placenta Status: Delivered SCORES BABY A Heart Rate 1 min: >100 bpm Resp Effort 1 min: Good Cry Reflex Irritability 1 min: Cough or Sneeze or Pulls Away Muscle Tone 1 min: Active Motion Color 1 min: Blue/Pale Resuscitation Effort 1 min: Tactile Stimulation SCORE 1 MIN: 8 Heart Rate 5 min: >100 bpm Resp Effort 5 min: Good Cry Reflex Irritability 5 min: Cough or Sneeze or Pulls Away Muscle Tone 5 min: Active Motion Color 5 min: Body [place], Extremities Blue Resuscitation Effort 5 min: N/A SCORE 5 MIN: 9 Resuscitation Effort 10 min: N/A INFORMATION BABY A Gestational Age at Delivery: 37.5 Gestational Status: Early Term- 37- 38.6 Weeks Outcome : Liveborn Condition : Stable Sex: Male IDENTIFICATION BABY A Verification Date/Time: 01/31/2019 14:12 ID Band Number: [id number] Mother's Name Verified: Yes Infant RN Verifying : Tamy Ambrose Additional Verifying Personnel: B Spivey WEIGHT/LENGTH BABY A Infant Birthweight (gm): 2815 Weight (lb): 6 Weight (oz): 3 Length (in): 18.00 Infant Length (cm): 45.72 CORD INFORMATION BABY A No. Cord Vessels: 3 Nuchal Cord : N/A Cord Blood Taken: Yes-For Storage (Mom's Blood type +) Suction: None ASSESSMENT BABY A Complications: Other Infant Complications- Other: short cord Physical Findings at Delivery: Molding of the Head Respirations: Appears Normal Automatic Profile Shaper Operator/ALS Called : No Care By: B Spivey RNC Transferred To: Remains with Mother BABY B INFORMATION : N/A SIGNATURES Assignment: Nikki George MD Signature: with User ID: [email or web address] : with User ID: [email or web address] : I was personally available for consultation and serving as supervising physician for the MLP. : I was personally available for consultation and serving as supervising physician for the MLP.
== END 2019-02-02 19:40 | disposition home or self-care (01) | DRG 807 ==
LOC: LC 06:03 → LR 06:37 → 2S 16:19
PROVIDERS: ADMIT Obstetrics & Gynecology Gynecology; ATTEND Obstetrics & Gynecology Gynecology
PROC: 10E0XZZ Delivery of Products of Conception, External Approach (ICD-10-PCS; principal; 2019-01-31)
PROC: 0HQ9XZZ Repair Perineum Skin, External Approach (ICD-10-PCS; 2019-01-31)
PROC: 10907ZC Drainage of Amniotic Fluid, Therapeutic from Products of Conception, Via Natural or Artificial Opening (ICD-10-PCS; 2019-01-31)
PROC: 4A1HXCZ Monitoring of Products of Conception, Cardiac Rate, External Approach (ICD-10-PCS; 2019-01-31)
DX: O13.4 Gestational [pregnancy-induced] hypertension without significant proteinuria, complicating childbirth (principal); Z37.0 Single live birth; O71.4 Obstetric high vaginal laceration alone; O99.02 Anemia complicating childbirth; D64.9 Anemia, unspecified; O99.344 Other mental disorders complicating childbirth; F31.9 Bipolar disorder, unspecified; O99.824 Streptococcus B carrier state complicating childbirth; O69.3XX0 Labor and delivery complicated by short cord, not applicable or unspecified; Z79.899 Other long term (current) drug therapy; Z3A.37 37 weeks gestation of pregnancy
CPT/HCPCS: 36415; 80307; 80349; 81005; 85025; 85027; 86592; 86850; 86900; 86901; 90715; 94760; G0480; J2540; J2590; J3010; J3490; J7060; S0028

== ENCOUNTER 2019-04-20 19:49 | Emergency (ER) | payer SELFPAY ==
[2019-04-20] MEDS ORDERED: MORPHINE SULFATE 10 MG/ML INJ IV ONE (21:48)
[2019-04-20] MEDS ORDERED: NORMAL SALINE 1000 ML 1,000 ML IV ONE ×2 (21:48)
[2019-04-20] MEDS ORDERED: ONDANSETRON HCL INJ/PF 4 MG/2 ML SDV IV ONE (21:49)
--- NOTE | 2019-04-20 21:52 | ER Document Report ---
ED GI/ - General Chief Complaint: Nausea/Vomiting Stated Complaint: ABDOMINAL PAIN Time Seen by Provider: 04/20/19 21:44 Notes: Patient is a 23-year-old female that comes to the emergency department for chief complaint of vomiting for the past 3 days and both upper and lower abdominal pain. She states she is having chills well. She reports some loose stools. She denies hematemesis or hematochezia. She denies vaginal discharge or bleedi ng. She denies , recently had a menstrual cycle and is on oral contraceptive. She has had a cholecystectomy, denies surgeries otherwise, takes no daily medications otherwise reportedly. She denies any recreational drugs or alcohol. TRAVEL OUTSIDE OF THE [place] IN LAST 30 DAYS: No - Related Data Allergies/Adverse Reactions: No Known Allergies Allergy (Verified 01/31/19 07:49) Past Medical History - General Information source: Patient - Social History Smoking Status: Never Smoker Drug Abuse: Marijuana Lives with: Family Family History: Reviewed & Not Pertinent Endocrine Medical History: Denies: Hx Diabetes Mellitus Type 1, Hx Diabetes Mellitus Type 2 Renal/ Medical History: Denies: Hx Peritoneal Dialysis Psychiatric Medical History: Reports: Hx Bipolar Disorder, Hx Depression Past Surgical History: Reports: Hx Cholecystectomy - lap harlan in 2016. Denies: Hx Appendectomy - Immunizations Immunizations up to date: Yes Hx Diphtheria, Pertussis, Tetanus Vaccination: Yes - Unknown Review of Systems - Review of Systems Constitutional: No symptoms reported EENT: No symptoms reported Cardiovascular: No symptoms reported Respiratory: No symptoms reported Gastrointestinal: See HPI Genitourinary: No symptoms reported Female Genitourinary: No symptoms reported Musculoskeletal: No symptoms reported Skin: No symptoms reported Hematologic/Lymphatic: No symptoms reported Neurological/Psychological: No symptoms reported Physical Exam - Vital signs Vitals: Temp Pulse Resp BP Pulse Ox 98.9 F 78 18 145/87 H 100 04/20/19 20:23 04/20/19 20:23 04/20/19 20:23 04/20/19 20:23 04/20/19 20:23 - Notes Notes: GENERAL: Restless, starts crying when I enter the room HEAD: Normocephalic, atraumatic. EYES: Pupils equal, round, and reactive to light. Extraocular movements intact. ENT: Oral mucosa moist, tongue midline. Oropharynx unremarkable. Airway patent. LUNGS: Clear to auscultation bilaterally, no wheezes, rales, or rhonchi. No respiratory distress. HEART: Regular rate and rhythm. No murmur ABDOMEN: Diffuse mild tenderness, nonspecific, no guarding. No distention. Bowel sounds present in all 4 quadrants. GENITOURINARY: Deferred EXTREMITIES: Moves all 4 extremities spontaneously. No edema, normal radial and dorsalis pedis pulses bilaterally. No cyanosis. BACK: no cervical, thoracic, lumbar midline tenderness. No saddle anesthesia, normal distal neurovascular exam. Moves all extremities in full range of motion. NEUROLOGICAL: Alert and oriented x3. Normal speech. Cranial nerves II through XII grossly intact. PSYCH: Normal affect, normal mood. SKIN: Warm, dry, normal turgor. No rashes or lesions noted. Course - Re-evaluation Re-evalutation: On initial evaluation patient is crying, requesting something for pain, reports pain all over her abdomen, she has a nonspecific abdominal exam was reported tenderness everywhere, abdomen is soft, there is no guarding, there appears to be minimal diffuse tenderness. No rigidity or distention. Vital signs unremarkable. CBC shows mild leukocytosis at 13,000, no bandemia. No concerning findings otherwise. Chemistry nonspecific and unremarkable. Lipase unremarkable. hCG is negative. Urinalysis shows some ketones, elevated specific gravity, a few white blood cells. Very nonspecific. Culture placed. Urine drug screen again shows marijuana, patient always has marijuana in her drug screen. On reevaluation patient is sleeping, when she awakes, she states that she has cramping and nausea again. She has not vomited. She was given p.o. medications and did not vomit but still complains of pain and nausea. After this patient was provided with Haldol. This did work very well. Based on patient's previous history of similar symptoms, benign abdomen, nonspecific work-up except for d ehydration, I did discuss at length suspected cyclic vomiting syndrome. Discussed cannabis use, recommendations in regards to this. Patient does state understanding. Patient will be provided with nausea medication, she has been rehydrated, discussed follow-up and return precautions. Patient did not vomit once during her entire emergency department stay. Stable at time of discharge. - Vital Signs Vital signs: Temp Pulse Resp BP Pulse Ox 98.4 F 81 18 145/67 H 100 04/21/19 05:20 04/21/19 05:20 04/21/19 05:20 04/21/19 05:20 04/21/19 05:20 - Laboratory Result Diagrams: 04/20/19 20:00 04/20/19 20:00 Laboratory results interpreted by me: 04/20/19 04/20/19 04/21/19 20:00 20:00 00:47 WBC 13.4 H RDW 16.3 H Seg Neutrophils % 80.6 H Absolute Neutrophils 10.8 H Calcium 10.3 H Total Protein 8.5 H Albumin 5.1 H Urine Protein 100 H Urine Ketones 20 H Urine Blood MODERATE H Discharge - Discharge Clinical Impression: Dehydration, Marijuana smoker Vomiting Qualifiers: Vomiting type: unspecified Vomiting Intractability: non-intractable Nausea presence: with nausea Qualified Code(s): R11.2 - Nausea with vomiting, unspecified Condition: Stable Disposition: HOME, SELF-CARE Additional Instructions: Your evaluation shows dehydration, otherwise does not show any concerning findings. Your symptoms are very suggestive of cyclic vomiting syndrome from cannabis use. I recommend that you avoid marijuana because it can cause this uncontrolled vomiting but is difficult to stop. Take Phenergan if needed for nausea, Pepcid to help recovery, start with bland foods, drink plenty of fluids and rest. Follow-up with primary care. Return if you worsen including fever, severe pain, return vomiting, vomiting blood, or any other concerning or worsening symptoms. Prescriptions: Famotidine [Pepcid 20 mg Tablet] 20 mg PO BID #14 tablet Promethazine HCl [Phenergan 25 mg Tablet] 25 mg PO Q6H PRN #20 tablet PRN Reason: Forms: Return to Work
[2019-04-20 22:16] LABS: ABSOLUTE BASOPHILS # (AUTO) 0.1 10^3/uL (0.0-0.2); ABSOLUTE LYMPHOCYTES (AUTO) 1.8 10^3/uL (0.5-4.7); ABSOLUTE MONOCYTES (AUTO) 0.7 10^3/uL (0.1-1.4); ABSOLUTE NEUT (AUTO) 10.8 10^3/uL (1.7-8.2); BASOPHILS % (AUTO) 0.5 % (0-2); EOSINOPHILS % (AUTO) 0.1 % (0-6); HEMATOCRIT 38.1 % (36.0-47.0); HEMOGLOBIN 12.7 g/dL (12.0-15.5); LYMPHOCYTES % (AUTO) 13.5 % (13-45); MEAN CORPUSCULAR HEMOGLOBIN 27.4 pg (27.0-33.4); MEAN CORPUSCULAR HGB CONC 33.4 g/dL (32.0-36.0); MEAN CORPUSCULAR VOLUME 82 fl (80-97); MONOCYTES % (AUTO) 5.3 % (3-13); PLATELET COUNT 306 10^3/uL (150-450); RED BLOOD COUNT 4.64 10^6/uL (3.72-5.28); RED CELL DISTRIBUTION WIDTH 16.3 % (11.5-14.0); SEGMENTED NEUTROPHILS % (AUTO) 80.6 % (42-78); TOTAL CELLS COUNTED % (AUTO) 100 %; WHITE BLOOD COUNT 13.4 10^3/uL (4.0-10.5)
[2019-04-20 22:32] LABS: ALBUMIN 5.1 g/dL (3.5-5.0); ALKALINE PHOSPHATASE 83 U/L (38-126); ANION GAP 16 (5-19); ASPARTATE AMINO TRANSFERASE 33 U/L (14-36); BILIRUBIN,DIRECT 0.3 mg/dL (0.0-0.4); BILIRUBIN,TOTAL 0.7 mg/dL (0.2-1.3); BLOOD UREA NITROGEN 15 mg/dL (7-20); CALCIUM 10.3 mg/dL (8.4-10.2); CARBON DIOXIDE 24 mmol/L (22-30); CHLORIDE 99 mmol/L (98-107); GLUCOSE 82 mg/dL (75-110); POTASSIUM 3.7 mmol/L (3.6-5.0); TOTAL PROTEIN 8.5 g/dL (6.3-8.2)
[2019-04-21] MEDS ORDERED: SUCRALFATE 1 GM TABLET PO ONE (00:38)
[2019-04-21] MEDS ORDERED: FAMOTIDINE 20 MG TABLET PO ONE (00:38)
[2019-04-21 01:06] LABS: APPEARANCE,URINE SLIGHTLY-CLOUDY; BILIRUBIN,URINE NEGATIVE (NEGATIVE); COLOR,URINE YELLOW; GLUCOSE, URINE NEGATIVE (NEGATIVE); KETONES,URINE 20 mg/dL (NEGATIVE); LEUKOCYTE ESTERASE,URINE NEGATIVE (NEGATIVE); NITRITE,URINE NEGATIVE (NEGATIVE); PROTEIN,URINE 100 mg/dL (NEGATIVE); URINE SPECIFIC GRAVITY 1.029; UROBILINOGEN,URINE NEGATIVE mg/dL (<2.0)
[2019-04-21 01:17] LABS: URINE AMPHETAMINES SCREEN NEGATIVE; URINE BARBITURATES SCREEN NEGATIVE; URINE BENZODIAZEPINES SCREEN NEGATIVE; URINE COCAINE SCREEN NEGATIVE; URINE MARIJUANA (THC) SCREEN UNCONFIRMED POSITIVE; URINE METHADONE SCREEN NEGATIVE; URINE PHENCYCLIDINE SCREEN NEGATIVE
[2019-04-21] MEDS ORDERED: HALOPERIDOL LACTATE INJ 5 MG/1 ML VIAL IM ONE (01:34)
[2019-04-21] MEDS ORDERED: ONDANSETRON ODT 4 MG TAB (6 TAB/ER DISP) PO PRN (03:46)
[2019-04-21 05:22] VITALS: BP 145/67
== END 2019-04-21 05:20 | disposition home or self-care (01) ==
LOC: ER 19:49
DX: E86.0 Dehydration (principal); F12.90 Cannabis use, unspecified, uncomplicated; R11.2 Nausea with vomiting, unspecified; R10.30 Lower abdominal pain, unspecified; R10.10 Upper abdominal pain, unspecified; Z90.49 Acquired absence of other specified parts of digestive tract
CPT/HCPCS: 36415; 83690; 84703; 85025; 80053; 81001; 80307; J1630; J2270; J2405; J7030; 87086

== ENCOUNTER 2019-12-17 06:31 | Emergency (ER) | payer SELFPAY ==
[2019-12-17] MEDS ORDERED: NORMAL SALINE 1000 ML 1,000 ML IV ONE (06:34)
[2019-12-17] MEDS ORDERED: ONDANSETRON HCL INJ/PF 4 MG/2 ML SDV IV ONE (06:34)
[2019-12-17 06:54] LABS: ABSOLUTE BASOPHILS # (AUTO) 0.1 10^3/uL (0.0-0.2); ABSOLUTE EOSINOPHILS # (AUTO) 0.1 10^3/uL (0.0-0.6); ABSOLUTE LYMPHOCYTES (AUTO) 1.8 10^3/uL (0.5-4.7); ABSOLUTE MONOCYTES (AUTO) 0.6 10^3/uL (0.1-1.4); ABSOLUTE NEUT (AUTO) 11.5 10^3/uL (1.7-8.2); BASOPHILS % (AUTO) 0.6 % (0-2); EOSINOPHILS % (AUTO) 0.4 % (0-6); HEMATOCRIT 40.2 % (36.0-47.0); HEMOGLOBIN 13.6 g/dL (12.0-15.5); LYMPHOCYTES % (AUTO) 12.7 % (13-45); MEAN CORPUSCULAR HEMOGLOBIN 28.2 pg (27.0-33.4); MEAN CORPUSCULAR HGB CONC 33.8 g/dL (32.0-36.0); MEAN CORPUSCULAR VOLUME 84 fl (80-97); MONOCYTES % (AUTO) 4.2 % (3-13); PLATELET COUNT 364 10^3/uL (150-450); RED BLOOD COUNT 4.81 10^6/uL (3.72-5.28); RED CELL DISTRIBUTION WIDTH 14.9 % (11.5-14.0); SEGMENTED NEUTROPHILS % (AUTO) 82.1 % (42-78); TOTAL CELLS COUNTED % (AUTO) 100 %
[2019-12-17] MEDS ORDERED: KETOROLAC TROMETHAMINE INJ/PF 30 MG/1 ML SDV IV ONE (07:03)
[2019-12-17 07:12] LABS: ALBUMIN 4.1 g/dL (3.5-5.0); ALKALINE PHOSPHATASE 77 U/L (38-126); ANION GAP 9 (5-19); ASPARTATE AMINO TRANSFERASE 19 U/L (14-36); BILIRUBIN,DIRECT 0.2 mg/dL (0.0-0.4); BILIRUBIN,TOTAL 0.6 mg/dL (0.2-1.3); BLOOD UREA NITROGEN 12 mg/dL (7-20); CALCIUM 9.5 mg/dL (8.4-10.2); CARBON DIOXIDE 22 mmol/L (22-30); CHLORIDE 106 mmol/L (98-107); GLUCOSE 110 mg/dL (75-110); POTASSIUM 4.1 mmol/L (3.6-5.0); TOTAL PROTEIN 7.7 g/dL (6.3-8.2)
[2019-12-17] MEDS ORDERED: MORPHINE SULFATE 10 MG/ML INJ IV ONE (07:20)
--- NOTE | 2019-12-17 08:11 | ER Document Report ---
ED GI/ - General Mode of Arrival: Medic Information source: Patient TRAVEL OUTSIDE OF THE [place] IN LAST 30 DAYS: No <LIDIA LEDESMA - Last Filed: 12/17/19 08:07> <MARIA R QUEVEDO - Last Filed: 12/17/19 11:24> - General Chief Complaint: Abdominal Pain Stated Complaint: ABDOMINAL PAIN Time Seen by Provider: 12/17/19 07:01 Notes: 24-year-old female patient arrives via EMS for complaints of left-sided abdominal pain. Patient reports pain intermittent over the last 2 weeks. She reports associated nausea with vomiting. Denies diarrhea, denies fever. Denies possibility of . Denies any dysuria. (LIDIA LEDESMA) - Related Data Allergies/Adverse Reactions: No Known Allergies Allergy (Verified 12/17/19 09:30) Past Medical History - General Information source: Patient - Social History Smoking Status: Current Every Day Smoker Family History: Reviewed & Not Pertinent Patient has suicidal ideation: No Patient has homicidal ideation: No Endocrine Medical History: Denies: Hx Diabetes Mellitus Type 1, Hx Diabetes Mellitus Type 2 Renal/ Medical History: Denies: Hx Peritoneal Dialysis Psychiatric Medical History: Reports: Hx Bipolar Disorder, Hx Depression Past Surgical History: Reports: Hx Cholecystectomy - lap harlan in 2016. Denies: Hx Appendectomy - Immunizations Immunizations up to date: Yes Hx Diphtheria, Pertussis, Tetanus Vaccination: Yes - Unknown <LIDIA LEDESMA - Last Filed: 12/17/19 08:07> Review of Systems - Review of Systems Constitutional: No symptoms reported EENT: No symptoms reported Cardiovascular: No symptoms reported Respiratory: No symptoms reported Gastrointestinal: See HPI Genitourinary: No symptoms reported Female Genitourinary: No symptoms reported Musculoskeletal: No symptoms reported Skin: No symptoms reported Hematologic/Lymphatic: No symptoms reported Neurological/Psychological: No symptoms reported <LIDIA LEDESMA - Last Filed: 12/17/19 08:07> Physical Exam <LIDIA LEDESMA - Last Filed: 12/17/19 08:07> - Vital signs Vitals: Pulse Ox 98 12/17/19 06:52 - Notes Notes: PHYSICAL EXAMINATION: GENERAL: Patient writhing around in pain screaming and hollering. HEAD: Atraumatic, normocephalic. EYES: Pupils equal round and reactive to light, extraocular movements intact, conjunctiva are normal. ENT: Nares patent, oropharynx clear without exudates. Moist mucous membranes. NECK: Normal range of motion, supple without lymphadenopathy LUNGS: Breath sounds clear to auscultation bilaterally and equal. No wheezes rales or rhonchi. HEART: Regular rate and rhythm without murmurs ABDOMEN: Soft, tenderness to palpation to the left lower quadrant. No guarding, no rebound. No masses appreciated. Female : deferred Musculoskeletal: Normal range of motion, no pitting or edema. No cyanosis. NEUROLOGICAL: Cranial nerves grossly intact. Normal speech, normal gait. Normal sensory, motor exams PSYCH: Anxious, uncooperative. SKIN: Warm, Dry, normal turgor, no rashes or lesions noted. (LIDIA LEDESMA) Course - Laboratory Result Diagrams: 12/17/19 06:43 12/17/19 06:43 <LIDIA LEDESMA - Last Filed: 12/17/19 08:07> - Laboratory Result Diagrams: 12/17/19 06:43 12/17/19 06:43 <MARIA R QUEVEDO - Last Filed: 12/17/19 11:24> - Re-evaluation Re-evalutation: 12/17/19 08:08 Laboratory 12/17/19 12/17/19 12/17/19 06:43 06:43 06:43 WBC 14.0 H RBC 4.81 Hgb 13.6 Hct 40.2 MCV 84 MCH 28.2 MCHC 33.8 RDW 14.9 H Plt Count 364 Lymph % (Auto) 12.7 L Dent % (Auto) 4.2 Eos % (Auto) 0.4 Baso % (Auto) 0.6 Absolute Neuts (auto) 11.5 H Absolute Lymphs (auto) 1.8 Absolute Monos (auto) 0.6 Absolute Eos (auto) 0.1 Absolute Basos (auto) 0.1 Seg Neutrophils % 82.1 H Sodium 136.7 L Potassium 4.1 Chloride 106 Carbon Dioxide 22 Anion Gap 9 BUN 12 Creatinine 0.49 L Est GFR ( Amer) > 60 Est GFR (MDRD) Non-Af > 60 Glucose 110 Calcium 9.5 Total Bilirubin 0.6 Direct Bilirubin 0.2 Neonat Total Bilirubin Not Reportable Neonat Direct Bilirubin Not Reportable Neonat Indirect Bili Not Reportable AST 19 ALT 10 Alkaline Phosphatase 77 Total Protein 7.7 Albumin 4.1 Lipase 40.4 Serum HCG, Qual POSITIVE H Labs as recorded above. Patient's serum hCG is positive. CT abdomen pelvis canceled. Added on order for transvaginal ultrasound to rule out ectopic . Patient now reports her last menstrual cycle was sometime in October. Handoff given to GENESIS Jarrell. (LIDIA LEDESMA) 12/17/19 09:46 Patient was signed out to me at shift change. She was pending ultrasound and quant. She was complaining of some pain at that time however she was somnolent appearing. She requested something for nausea, was given Reglan and then began to have what appears to be adverse reaction. She was given 50 of Benadryl and is now resting comfortably in the room. She was reevaluated has a benign abdominal exam. She is pending urinalysis, she is not given us urine yet. She states that she will provide a sample for care. Of note the patient keeps intermittently yelling out for pain medicine. I reviewed her records from this emergency department alone and she is been here on several visits for the same type of abdominal complaints. She was surprised to find out that she was today. She has a history of becoming very aggressive when not recei ving narcotic pain medications. Records also indicate a psychiatric component. 12/17/19 11:21 Reevaluation at this time, all lab results are back, urinalysis showing no evidence of UTI. Patient with 11 weeks gestation IUP. She is resting comfortably in the room in no acute distress. No obvious discomfort. Will prescribe doxylamine and B6. Refer to [facility]. Counseled her at length regarding the importance of outpatient follow-up and advised she return here or any ER immediately with any new, persistent or worsening symptoms. She verbalized understood and agreed. (MARIA R QUEVEDO) - Vital Signs Vital signs: Temp Pulse Resp BP Pulse Ox 11 L 132/70 H 97 12/17/19 09:01 12/17/19 09:25 12/17/19 09:25 - Laboratory Laboratory results interpreted by me: 12/17/19 12/17/19 12/17/19 06:43 06:43 06:43 WBC 14.0 H RDW 14.9 H Lymph % (Auto) 12.7 L Absolute Neuts (auto) 11.5 H Seg Neutrophils % 82.1 H Sodium 136.7 L Creatinine 0.49 L Serum HCG, Qual POSITIVE H Beta HCG, Quant Urine Protein Urine Ketones Urine Ascorbic Acid 12/17/19 12/17/19 06:43 10:06 WBC RDW Lymph % (Auto) Absolute Neuts (auto) Seg Neutrophils % Sodium Creatinine Serum HCG, Qual Beta HCG, Quant 518319.00 H Urine Protein 30 H Urine Ketones 80 H Urine Ascorbic Acid 40 H Discharge <LIDIA LEDESMA - Last Filed: 12/17/19 08:07> <MARIA R QUEVEDO - Last Filed: 12/17/19 11:24> - Discharge Clinical Impression: Intrauterine , Nausea and vomiting during Abdominal pain Qualifiers: Abdominal location: left lower quadrant Qualified Code(s): R10.32 - Left lower quadrant pain Condition: Stable Disposition: HOME, SELF-CARE Instructions: ([facility]) Additional Instructions: Follow-up with your [facility] as referred. Return here or any ER immediately with any new, persistent or worsening symptoms. Prescriptions: Doxylamine Succinate/Vit B6 [Doxylamine-Pyridoxine 10-10 mg] 1 each PO QHS #30 tablet.dr Referrals: LOGAN DIETZ MD [ACTIVE STAFF] - Follow up as needed
[2019-12-17] MEDS ORDERED: METOCLOPRAMIDE HCL INJ/PF 10 MG/2 ML SDV IV ONE (08:53)
[2019-12-17] MEDS ORDERED: DIPHENHYDRAMINE HCL 50 MG/ML VIAL IV ONE (09:14)
--- NOTE | 2019-12-17 09:30 | RADIOLOGY REPORT (SQ) ---
EXAM DESCRIPTION: U/S OB TRANSVAGINAL W/O DOP IMAGES COMPLETED DATE/TIME: 12/17/2019 8:38 am REASON FOR STUDY: +preg/LLQ pain/eval for ectopic COMPARISON: No previous this TECHNIQUE: Endovaginal static and realtime grayscale images acquired of the pelvis. Additional selec jair spectral and color Doppler images recorded. All images stored on PACs. bHCG: Positive urine test CLINICAL DATES: Unknown LIMITATIONS: None. FINDINGS: FETUS: Single Living intrauterine . ULTRASOUND EGA: 11 weeks 3 days ULTRASOUND RANDA: 07/04/2020 EFW: Not applicable less than 20 weeks. CRL: 4.5 cm FHR: 157 beats per minute. SURVEY: Too early to evaluate AMNIOTIC FLUID: Adequate amount. PLACENTA: Not yet developed due to early gestation. SUBCHORIONIC BLEED: No SIZE OF BLEED: Not applicable. UTERUS: No masses. No anomalies. Uterus is 10 x 8 x 6 cm CERVICAL LENGTH: Closed, 3 cm RIGHT ADNEXA: Normal ovary with normal vascular flow. Right ovary 2.9 x 2.7 x 2.4 cm. No adnexal fr ee fluid.No adnexal masses. LEFT ADNEXA: Normal ovary with normal vascular flow. Left ovary 4.9 x 3.1 x 2.4 cm. No adnexal free fluid.No adnexal masses. FREE FLUID: None. OTHER: No other significant finding. IMPRESSION: LIVING INTRAUTERINE . EGA 11 weeks 3 days Trimester of : First trimester - 0 to 13 weeks. TECHNICAL DOCUMENTATION: JOB ID: [id number] 2010 [employer]- All Rights Reserved rev Reading location - IP/workstation name: [email or web address]
[2019-12-17 11:14] LABS: APPEARANCE,URINE CLOUDY; BILIRUBIN,URINE NEGATIVE (NEGATIVE); COLOR,URINE YELLOW; GLUCOSE, URINE NEGATIVE (NEGATIVE); KETONES,URINE 80 mg/dL (NEGATIVE); PROTEIN,URINE 30 mg/dL (NEGATIVE); URINE SPECIFIC GRAVITY 1.031; UROBILINOGEN,URINE NEGATIVE mg/dL (<2.0)
[2019-12-17 11:29] VITALS: BP 159/85
== END 2019-12-17 11:40 | disposition home or self-care (01) ==
LOC: ER 06:31
DX: O21.9 Vomiting of pregnancy, unspecified (principal); R10.32 Left lower quadrant pain; R10.9 Unspecified abdominal pain; O99.331 Smoking (tobacco) complicating pregnancy, first trimester; Z3A.11 11 weeks gestation of pregnancy
CPT/HCPCS: 99284; 96361; 96374; 96375; 36415; 84702; 83690; 84703; 85025; 80053; 81001; 76817; J1200; J1885; J2765; J2270; J2405; J7030

== ENCOUNTER 2020-01-23 10:49 | Emergency (ER) | payer OTHER ==
[2020-01-23 11:04] VITALS: BP 140/86
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
== END 2020-01-23 12:14 | disposition home or self-care (01) ==
LOC: ER 10:49
DX: M25.552 Pain in left hip (principal); F17.200 Nicotine dependence, unspecified, uncomplicated; V87.7XXA Person injured in collision between other specified motor vehicles (traffic), initial encounter; Z90.49 Acquired absence of other specified parts of digestive tract
CPT/HCPCS: 99283

== ENCOUNTER 2020-04-01 16:47 | Emergency (ER) | payer OTHER ==
[2020-04-01] MEDS ORDERED: ONDANSETRON 4 MG TAB.RAPDIS PO ONE (17:30)
--- NOTE | 2020-04-01 17:33 | ER Document Report ---
ED Medical Screen (RME) - General Stated Complaint: ABDOMINAL PAIN/VOMITING Time Seen by Provider: 04/01/20 17:26 Mode of Arrival: Ambulatory Information source: Patient Notes: HPI; 24 y/o female presents to the emergency room complaining of nausea, vomiting, abdominal pain and dizziness for 3 days.NO medications for symptoms. No fevers. no travel.no COVID 19 exposure.. PE:alert and oriented x 3 moderate distress noted. Won't sit down in triage, crying, moaning and pacing in the room. Lungs CTA without rales, rhonchi or wheezes, Heart: rrr wihout murmurs rubs or gallops. Unable to abdominal exam in triage. I have greeted and performed a rapid initial assessment of this patient. A comprehensive ED assessment and evaluation of the patient, analysis of test results and completion of the medical decision making process will be conducted by additional ED providers. I have specifically instructed the patient or family members with the patient to immediately return to any nursing staff should anything change in the patient's condition or with their chief complaint. TRAVEL OUTSIDE OF THE [place] IN LAST 30 DAYS: No - Related Data Allergies/Adverse Reactions: No Known Allergies Allergy (Verified 01/23/20 11:03) Past Medical History Endocrine Medical History: Denies: Hx Diabetes Mellitus Type 1, Hx Diabetes Mellitus Type 2 Renal/ Medical History: Denies: Hx Peritoneal Dialysis Psychiatric Medical History: Reports: Hx Bipolar Disorder, Hx Depression Past Surgical History: Reports: Hx Cholecystectomy - lap harlan in 2016. Denies: Hx Appendectomy - Immunizations Immunizations up to date: Yes Hx Diphtheria, Pertussis, Tetanus Vaccination: Yes - Unknown
== END 2020-04-01 19:50 | disposition left against medical advice (07) ==
LOC: ER 16:47
DX: R10.9 Unspecified abdominal pain (principal); R11.2 Nausea with vomiting, unspecified
CPT/HCPCS: 99281

== ENCOUNTER 2020-04-02 03:52 | Emergency (ER) | payer SELFPAY ==
[2020-04-02] MEDS ORDERED: HALOPERIDOL LACTATE INJ 5 MG/1 ML VIAL IV ONE (07:23)
[2020-04-02] MEDS ORDERED: NORMAL SALINE 1000 ML 1,000 ML IV ONE (07:23)
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
[2020-04-02] MEDS ORDERED: DIPHENHYDRAMINE HCL 50 MG/ML VIAL IV ONE (09:03)
== END 2020-04-02 09:45 | disposition left against medical advice (07) ==
LOC: ER 03:52
DX: R10.30 Lower abdominal pain, unspecified (principal); R10.819 Abdominal tenderness, unspecified site; R11.0 Nausea; R19.7 Diarrhea, unspecified; F12.10 Cannabis abuse, uncomplicated; Z90.49 Acquired absence of other specified parts of digestive tract; Z53.29 Procedure and treatment not carried out because of patient's decision for other reasons
CPT/HCPCS: 99281; J1630